=== PATIENT | female | born 1945 | race Caucasian/White ===

== ENCOUNTER → 2016-06-06 | Outpatient (CLI) | payer MEDICARE, OTHER ==
[~2016-06-06] MED LIST: ANTI-INFLAMMATORY PO; ASP81TEC PO; BACL10TA PO; CA C1TAB26 PO; CALC-902 PO; CLIN-62 PO; CYAN10007 PO; EST.625T PO; HYDR1TAB PO; IRON150C3 PO; LOSA25TA21 PO; LOSA50TA6 PO; MONT10TA24 PO; MULT-608 PO; MUPI1OIN5 NS; NF-DICLOTA PO; OMEP10CA4 PO; POTA10CA43 PO; SIMV10TA3 PO; TORS10TA2 PO; TRAM-21 PO; WRF1T PO; WRF5T PO; omeprozole PO
--- OUTSIDE RECORDS SUMMARY | 2016-06-06 10:32 | XMS REPORT | Continuity of Care Document ---
Author Author [facility] Organization [facility] Address Unknown Phone Unavailable Care Team Providers Care Aquaculture And Fisheries Professor Name Role Phone Unknown, Unknown PCP Unavailable Source Comments Some departments are not documenting in the electronic medical record. If you do not see the information that you expected, contact Release of Information in the Health Information Management department at [phone] for further assistance in locating additional records.[facility] Active Allergies and Adverse Reactions Allergen Noted Date Severity Reactions Comments Morphine 05/24/2015 Low NAUSEA ONLY Current Medications Prescription Sig. Disp. Refills Start End Date Status Date estradiol (ESTRACE) 0.01 Insert or Apply to Active % (0.1 mg/g) vaginal vaginal area daily. cream SIMVASTATIN PO Take by mouth. Active omeprazole DR(+) Take 20 mg by mouth Active (PRILOSEC) 20 mg capsule daily. aspirin EC 81 mg tablet Take 81 mg by mouth Active daily. cholecalciferol (VITAMIN Take 1,000 Units by mouth Active D-3) 1,000 units tablet daily. LOVASTATIN PO Take by mouth. Active CYANOCOBALAMIN (VITAMIN Take by mouth. Active B-12) (VITAMIN B12 PO) CALCIUM CARBONATE/VITAMIN Take by mouth. Active D3 (VITAMIN D-3 PO) ofloxacin(+) (FLOXIN) 0.3 PLACE 2 DROPS IN LEFT EAR 1 Bottle 0 20 Active % ophthalmic solution THREE TIMES DAILY 16 dexamethasone (DECADRON) PLACE 2 DROPS IN AFFECTED 1 Bottle 0 20 Active 0.1 % ophthalmic solution EAR DIRECTED THREE 16 TIMES DAILY NAPROXEN PO Take by mouth. Active ketoconazole (NIZORAL) 2 APPLY TO AFFECTED AREA 120 mL 5 /25/20 Active % topical shampoo THREE TIMES A WEEK. 16 MASSAGE INTO SCALP THEN WASH OUT AFTER LEFT IN FOR 15 MINUTES. Active Problems Problem Noted Date Dysfunction of both eustachian tubes 06/07/2015 Chronic suppurative otitis media of left ear 05/24/2015 Overview: Ear drum cleft. 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 DIRECTOR Pulse 65 06/07/2015 11:38 AM MAJOR GIFTS DIRECTOR Temperature - - Respiratory Rate - - Height 1.524 m (5') 11/29/2015 10:27 AM CDT Weight 77.565 kg (171 lb) 11/29/2015 10:27 AM CDT Body Mass Index 33.4 11/29/2015 10:27 AM CDT Oxygen Saturation - - Plan of Care Date Type Specialty Providers Description 11/14/2016 Appointment Dermatology Josué Bertrand MD [address] [facility] [address] [place] [address] [phone] (Fax) Health Maintenance Due Date Last Done Comments Hepatitis C Screening 1945 Physical (Comprehensive) 1952 Exam Pertussis Vaccine 1956 Tetanus Vaccine 1962 Breast Cancer Screening 1985 Colorectal Cancer 08/28/1995 Screening Shingles Vaccine 2005 Osteoporosis Screening 2010 Prevnar/Pneumovax (#1) 2010 Influenza Vaccine 12/29/2015 Results from Last 3 Months Not on file
--- NOTE | 2016-06-07 19:01 | Diagnostic Imaging Report ---
Bilateral screening mammogram. The current study was also evaluated with a Computer Aided Detection (CAD) system. INDICATION: Screening. No current complaints stated on the questionnaire. COMPARISON: 05/26/15 FINDINGS: The breasts are composed of scattered fibroglandular densities. There are scattered benign-appearing calcifications. No developing mass, architectural distortion or suspicious cluster of calcification seen. Allowing for technique and positional differences, no suspicious change is seen. IMPRESSION: No significant change. ACR BI-RADS Category 2: Benign findings. Result letter will be mailed to the patient. Note: At least 10% of breast cancer is not imaged by mammography. Dictated by: Dictated on workstation # [id number]
== END ==
LOC: RAD 10:28
PROVIDERS: ATTEND Nurse Practitioner Family
DX: Z12.31 Encounter for screening mammogram for malignant neoplasm of breast (principal)
CPT/HCPCS: 77067

== ENCOUNTER 2017-01-11 13:14 | Emergency (ER) | payer MEDICARE, OTHER ==
[~2017-01-11] VITALS: Ht 152.4 cm; Wt 73.5 kg
--- OUTSIDE RECORDS SUMMARY | 2017-01-11 13:29 | XMS REPORT | Clinical Summary ---
Author Author [facility] Organization [facility] Address Unknown Phone Unavailable Care Team Providers Care Storeroom Attendant Name Role Phone PCP Unavailable Source Comments Some departments are not documenting in the electronic medical record. If you do not see the information that you expected, contact Release of Information in the Health Information Management department at [phone] for further assistance in locating additional records.[facility] Allergies Active Allergy Reactions Severity Noted Date Comments Morphine NAUSEA ONLY Low 05/24/2015 Current Medications Prescription Sig. Disp. Refills Start End Date Status Date estradiol (ESTRACE) 0.01 Take by mouth daily. Active % (0.1 mg/g) vaginal Indications: 0.5 creamIndications: 0.5 SIMVASTATIN PO Take by mouth. Active omeprazole DR(+) Take 20 mg by mouth Active (PRILOSEC) 20 mg capsule daily. aspirin EC 81 mg tablet Take 81 mg by mouth Active daily. cholecalciferol (VITAMIN Take 1,000 Units by mouth Active D-3) 1,000 units tablet daily. CYANOCOBALAMIN (VITAMIN Take by mouth. Active B-12) (VITAMIN B12 PO) CALCIUM CARBONATE/VITAMIN Take by mouth. Active D3 (VITAMIN D-3 PO) ketoconazole (NIZORAL) 2 APPLY TO AFFECTED AREA 120 mL 5 02/21/20 Active % topical shampoo THREE TIMES A WEEK. 16 MASSAGE INTO SCALP THEN WASH OUT AFTER LEFT IN FOR 15 MINUTES. IRON (FERROUS SULFATE) PO Take by mouth. Active magnesium Active calcium Administer through vein. Active DOCUSATE CALCIUM (STOOL Take by mouth. Active SOFTENER PO) Active Problems Problem Noted Date Dysfunction of both eustachian tubes 06/07/2015 Chronic suppurative otitis media of left ear 05/24/2015 Overview: Ear drum cleft. Lots of valsalva requested Family History Medical History Relation Name Comments Basal Cell Carcinoma Brother Squamous Cell Carcinoma Brother Basal Cell Carcinoma Father High Cholesterol Father Hypertension Father Squamous Cell Carcinoma Father Basal Cell Carcinoma Mother High Cholesterol Mother Hypertension Mother Squamous Cell Carcinoma Mother Relation Name Status Comments Brother Father Mother Social History Tobacco Use Types Packs/Day Years Used Date Never Smoker Alcohol Use Drinks/Week oz/Week Comments No 0 Standard 0.0 drinks or equivalent Sex Assigned at Date Recorded Not on file Last Filed Vital Signs Vital Sign Reading Time Taken Blood Pressure 123/71 06/26/2016 4:03 PM RESEARCH PROGRAM MANAGER Pulse 73 06/26/2016 4:03 PM RESEARCH PROGRAM MANAGER Temperature - - Respiratory Rate - - Oxygen Saturation - - Inhaled Oxygen - - Concentration Weight 80.4 kg (177 lb 3.2 oz) 06/26/2016 4:03 PM RESEARCH PROGRAM MANAGER Height 152.4 cm (5') 06/26/2016 4:03 PM RESEARCH PROGRAM MANAGER Body Mass Index 34.61 06/26/2016 4:03 PM RESEARCH PROGRAM MANAGER Plan of Treatment Health Maintenance Due Date Last Done Comments HEPATITIS C SCREENING 1945 PHYSICAL (COMPREHENSIVE) 1952 EXAM PERTUSSIS VACCINE 1956 TETANUS VACCINE 1962 BREAST CANCER SCREENING 1985 COLORECTAL CANCER 08/28/1995 SCREENING SHINGLES VACCINE 2005 OSTEOPOROSIS SCREENING 2010 PREVNAR/PNEUMOVAX (#1) 2010 INFLUENZA VACCINE 12/28/2016 Results Not on filefrom Last 3 Months
--- NOTE | 2017-01-11 13:59 | ED Lower Extremity ---
General Chief Complaint: Lower Extremity Stated Complaint: LT LEG PAIN Nursing Triage Note: PT BROUGHT TO ROOM BY WHEELCHAIR. PT STATES THAT AT APPROX. 1145 THIS MORNING SHE WAS WALKING UP THE STAIRS AND HEARD HER LEFT KNEE POP. PT HASN'T BEEN ABLE TO WALK ON IT SINCE. PT TOOK 2 TYLENOL AT APPROX. 1215. Nursing Sepsis Screen: No Definite Risk Source: patient, family Exam Limitations: no limitations History of Present Illness Time seen by provider: 13:58 Initial Comments 71-year-old female patient presents to the emergency department with complaints of left knee pain. States that 1145 this a.m. she was walking up the stairs when she heard a pop in the left knee and had sudden onset severe pain. Patient states she is now unable to bend the left knee. Location Injury Occurred: home Onset: this morning Pain/Injury Location: left knee Modifying Factors: Improves With Immobilization, Worse With Movement Allergies and Home Medications Allergies Coded Allergies: cephalexin (Unverified Allergy, Unknown, 02/24/16) meperidine (Unverified Allergy, Unknown, 02/24/16) morphine (Unverified Allergy, Unknown, 02/24/16) pentazocine (Unverified Allergy, Unknown, 02/24/16) Home Medications Ca Cmb No.1/Vit D3/B-6/Fa/B12 1 Each Tablet, 1,000 MG PO DAILY, (Reported) Calcium Carbonate/Vitamin D3 1 Each Tablet, 2 EACH PO HS, (Reported) Cyanocobalamin 1,000 Mcg Tablet.sa, 1,000 MCG PO HS, (Reported) Hydrocodone/Acetaminophen 1 Each Tablet, 0.5-1 EACH PO Q4H PRN for PAIN, #20 Ref 0 Prescribed by: MARIANNA JUAN on 01/11/17 1616 Iron Polysaccharide Complex 150 Mg Capsule, 150 MG PO BID, (Reported) Losartan Potassium 25 Mg Tablet, 25 MG PO HS, (Reported) Montelukast Sodium 10 Mg Tablet, 10 MG PO HS, (Reported) Multivitamins 1 Tab Tablet, 1 TAB PO DAILY, (Reported) Omeprazole 10 Mg Capsule.dr, 10 MG PO HS, (Reported) Simvastatin 10 Mg Tablet, 10 MG PO HS, (Reported) Constitutional: no symptoms reported Respiratory: no symptoms reported Cardiovascular: no symptoms reported Musculoskeletal: see HPI, No back pain, joint pain, joint swelling, No neck pain Skin: No change in color, No lumps Psychiatric/Neurological: Denies Numbness, Denies Paresthesia, Denies Tingling , Denies Weakness All Other Systems Reviewed Negative Unless Noted: Yes (Negative excepted noted.) Past Bkxxeip-Keagjw-Ewilqk Hx Patient Social History Alcohol Use: Denies Use Recreational Drug Use: No Smoking Status: Never a Smoker 2nd Hand Smoke Exposure: No Recent Foreign Travel: No Contact w/Someone Who Travel: No Recent Infectious Disease Expo: No Recent Hopitalizations: Yes (RIGHT HIP SURGERY FEBRUARY 2016) Physical Abuse: No Sexual Abuse: No Seasonal Allergies Seasonal Allergies: No Surgeries History of Surgeries: Yes (R Total hip, Right total knee, right foot) Surgeries: Appendectomy, Gallbladder, Joint Replacement Respiratory History of Respiratory Disorde: No (frequent cough) Cardiovascular History of Cardiac Disorders: Yes Cardiac Disorders: Hypertension Neurological History of Neurological Disord: No Reproductive System Hx Reproductive Disorders: No Sexually Transmitted Disease: No HIV/AIDS: No 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 Genitourinary History of Genitourinary Disor: No Gastrointestinal History of Gastrointestinal Di: Yes Gastrointestinal Disorders: Gastroesophageal Reflux, C-Diff, Hiatal Hernia Musculoskeletal History of Musculoskeletal Dis: Yes (spinal stenosis) Musculoskeletal Disorders: Osteoporosis, Scoliosis Endocrine History of Endocrine Disorders: No HEENT History of HEENT Disorders: Yes HEENT Disorders: Cataract Cancer History of Cancer: No Psychosocial History of Psychiatric Problem: No Suicide Risk Score: 0 Integumentary History of Skin or Integumenta: No Blood Transfusions History of Blood Disorders: Yes (anemia) Reviewed Nursing Assessment Reviewed/Agree w Nursing PMH: Yes Family Medical History Significant Family History: No Pertinent Family Hx Physical Exam Vital Signs Vital Sign - Last 12Hours 01/11/17 13:29 Temp 97.8 Pulse 75 Resp 20 B/P (MAP) 106/77 Pulse Ox 96 O2 Delivery Room Air Capillary Refill : Less Than 3 Seconds General Appearance: WD/WN, no apparent distress Cardiovascular: normal peripheral pulses, regular rate, rhythm, no edema, no murmur Respiratory: lungs clear, normal breath sounds, no respiratory distress, no accessory muscle use Hips: bilateral hip non-tender, bilateral hip normal inspection, bilateral hip normal range of motion, bilateral hip no evidence of injury Legs: right leg non-tender, right leg normal inspection, bilateral leg normal range of motion, bilateral leg no evidence of injury, left leg swelling (left lower leg from the left knee to the left mid lateral calf with soft tissue tenderness noted. Left posterior calf nontender.) Knees: right knee non-tender, right knee normal inspection, right knee normal range of motion, bilateral knee no evidence of injury, left knee pain, left knee soft tissue tenderness (left posterior knee), left knee swelling (left posterior knee), left knee other (palpable cystic structure of the left posterior knee consistent with a Hatfield's cyst) Ankles: bilateral ankle non-tender, bilateral ankle normal inspection, bilateral ankle normal range of motion, bilateral ankle no evidence of injury Feet: bilateral foot non-tender, bilateral foot normal inspection, bilateral foot normal range of motion, bilateral foot no evidence of injury Neurologic/Tendon: normal sensation, normal motor functions, normal tendon functions, responds to pain, no evidence tendon injury Neurologic/Psychiatric: no motor/sensory deficits, alert, normal mood/affect, oriented x 3 Skin: normal color, warm/dry, No cyanosis, No cool, No ecchymosis, No mottled Progress/Results/Core Measures Results/Orders My Orders Orders - MARIANNA JUAN Ketorolac Injection (Toradol Injection) (01/11/17 14:37) Knee, Left, 3 Views (01/11/17 14:37) Us Left Lower Ext [id number] (01/11/17 14:37) Knee Immobilizer (01/11/17 16:14) Hydrocodone/Apap 5/325 Tablet (Lortab 5 (01/11/17 16:14) Vital Signs/I&O Vital Sign - Last 12Hours 01/11/17 01/11/17 13:29 16:28 Temp 97.8 97.8 Pulse 75 75 Resp 20 20 B/P (MAP) 106/77 Pulse Ox 96 96 O2 Delivery Room Air Room Air Blood Pressure Mean: 87 Diagnostic Imaging Diagonstic Imaging: Xray Plain Films/CT/US/NM/MRI: knee Comments FINDINGS: Three views. There is a moderate degenerative disease with sclerosis along the articulating surface of the lateral femoral condyle and tibial plateau with moderate bony osteophytes present. Medial compartment is well preserved. Patellofemoral joint shows mild hypertrophic changes as well. No fractures are demonstrated. No chondrocalcinosis or loose bodies. IMPRESSION: 1. Moderate degenerative changes noted in the lateral compartment with mild degenerative changes along the patellofemoral joint. Dictated by: Dictated on workstation # [id number] Reviewed: Reviewed by Me (radiology report reviewed by me) Diagonstic Imaging: Ultrasound Plain Films/CT/US/NM/MRI: knee (left knee) Comments INDICATION: Pain posterior to left knee Ultrasound of the popliteal fossa was performed. There is a complex Hatfield's cyst with internal debris and irregularity , measures about 4.7 x 1.3 x 3.9 cm. Incidentally, the popliteal vein is somewhat aneurysmal measuring 1.4 cm. IMPRESSION: Irregular Hatfield's cyst with debris in the poplitea fossa, as mentioned above. 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 Dictated by: Dictated on workstation # [id number] Reviewed: Reviewed by Me (radiology report reviewed by me) Departure Communication (Admissions) Progress Notes Patient seen and evaluated. Patient reports that she does not want narcotics given for the pain while in the emergency department. Patient is agreeable to using Toradol IM. Diagnostic findings were discussed with the patient. Patient reports feeling better with medications given. Patient is now agreeable to using one half tablet of hydrocodone in the emergency department due to continuing to have pain which she rates at a 6/10. Patient was placed in a knee immobilizer with improvement in symptoms. Plan for discharge to home with follow-up as an outpatient with orthopedics. Patient states she already has an appointment scheduled with Dr. Tan has an outpatient for discussion of her hip. I've advised the patient to discuss the left knee Hatfield cyst with him at that appointment. Impression Impression: Primary Impression: Hatfield's cyst, ruptured Disposition: 01 HOME, SELF-CARE Condition: Improved Departure-Patient Inst. Decision time for Depature: 16:15 Referrals: BART TAN MD, WILLIAM J DO (PCP/Family) Primary Care Physician Patient Instructions: Hatfield's Cyst (DC) Add. Discharge Instructions: All discharge instructions reviewed with patient and/or family. Voiced understanding. Medications as directed. Motrin 600 mg by mouth every 6 hours as needed for pain. Elevate the left lower extremity on pillows. Ice pack for 20 minute intervals as needed for pain and swelling. Knee immobilizer as instructed. Crutches or walker as instructed. Follow-up with Dr. Banwart as an outpatient for recheck as previously scheduled. Make sure to discuss the Hatfield's cyst with him. Return to the emergency department for worsened symptoms or any other concerns. Scripts Hydrocodone/Acetaminophen (Hydrocodon -Acetaminophen 5-325) 1 Each Tablet 0.5-1 EACH PO Q4H Y for PAIN, #20 TAB 0 Refills Prov: MARIANNA JUAN 01/11/17 MARIANNA JUAN Jan 11, 2017 13:58
[2017-01-11] MEDS ORDERED: KETOROLAC 60 MG/2 ML VIAL IM STA (14:37)
--- NOTE | 2017-01-11 15:18 | Diagnostic Imaging Report ---
INDICATION: Sudden onset of severe pain to left knee. FINDINGS: Three views. There is a moderate degenerative disease with sclerosis along the articulating surface of the lateral femoral condyle and tibial plateau with moderate bony osteophytes present. Medial compartment is well preserved. Patellofemoral joint shows mild hypertrophic changes as well. No fractures are demonstrated. No chondrocalcinosis or loose bodies. IMPRESSION: 1. Moderate degenerative changes noted in the lateral compartment with mild degenerative changes along the patellofemoral joint. Dictated by: Dictated on workstation # [id number]
--- NOTE | 2017-01-11 15:47 | Diagnostic Imaging Report ---
INDICATION: Pain posterior to left knee Ultrasound of the popliteal fossa was performed. There is a complex Hatfield's cyst with internal debris and irregularity, measures about 4.7 x 1.3 x 3.9 cm. Incidentally, the popliteal vein is somewhat aneurysmal measuring 1.4 cm. IMPRESSION: Irregular Hatfield's cyst with debris in the poplitea fossa, as mentioned above. 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 Dictated by: Dictated on workstation # [id number]
[2017-01-11] MEDS ORDERED: HYDROcodone/APAP 5 MG/325 MG (LORTAB) TAB PO STA (16:14)
[2017-01-11] MEDS ORDERED: HYDR-3812 PO (16:16)
[2017-01-11 16:28] VITALS: BP 106/77
[2017-01-13] MEDS ORDERED: TRIA1CAP4 PO ×2 (16:23)
[2017-01-13] MEDS ORDERED: OMEP20CA12 PO ×2 (16:23)
[2017-01-13] MEDS ORDERED: ESTR0.5T PO ×2 (16:23)
[2017-01-13] MEDS ORDERED: CYAN500T2 PO ×2 (16:38)
[2017-01-13] MEDS ORDERED: HYDR-757 PO ×2 (16:38)
[2017-01-13] MEDS ORDERED: CHOL3000 PO ×2 (16:38)
[2017-01-13] MEDS ORDERED: [UNRECOGNIZED DRUG - OTHER] PO ×2 (16:43)
[2017-01-13] MEDS ORDERED: MAGNESIUM PO ×2 (16:54)
[2017-01-14] MEDS ORDERED: APIX5TAB PO ×2 (08:53)
== END 2017-01-11 16:28 | disposition home or self-care (01) ==
LOC: EDUNIT# 13:14 → ER 13:24
DX: M71.22 Synovial cyst of popliteal space [Baker], left knee (principal); K21.9 Gastro-esophageal reflux disease without esophagitis; I10 Essential (primary) hypertension; M41.9 Scoliosis, unspecified; D64.9 Anemia, unspecified; M81.0 Age-related osteoporosis without current pathological fracture; Z87.19 Personal history of other diseases of the digestive system; Z90.710 Acquired absence of both cervix and uterus; Z90.49 Acquired absence of other specified parts of digestive tract; Z96.651 Presence of right artificial knee joint; Z96.641 Presence of right artificial hip joint; X50.0XXA Overexertion from strenuous movement or load, initial encounter
CPT/HCPCS: 73562; 76881; 96372; 99284

== ENCOUNTER 2017-01-13 11:45 | Observation (INO) | payer MEDICARE, OTHER ==
[~2017-01-13] VITALS: Ht 149.9 cm; Wt 82.6 kg
[~2017-01-13 11:45] MED LIST changes: +HYDR-3812 PO
--- OUTSIDE RECORDS SUMMARY | 2017-01-13 11:50 | XMS REPORT | Clinical Summary ---
Author Author [facility] Organization [facility] Address Unknown Phone Unavailable Care Team Providers Care Support Analyst Name Role Phone PCP Unavailable Source Comments Some departments are not documenting in the electronic medical record. If you do not see the information that you expected, contact Release of Information in the Health Information Management department at [phone] for further assistance in locating additional records.[facility] Allergies Active Allergy Reactions Severity Noted Date [...] Taken Blood Pressure 123/71 06/26/2016 4:03 PM DIRECTOR OF APPLICATION DEVELOPMENT Pulse 73 06/26/2016 4:03 PM DIRECTOR OF APPLICATION DEVELOPMENT Temperature - - Respiratory Rate - - Oxygen Saturation - - Inhaled Oxygen - - Concentration Weight 80.4 kg (177 lb 3.2 oz) 06/26/2016 4:03 PM DIRECTOR OF APPLICATION DEVELOPMENT Height 152.4 cm (5') 06/26/2016 4:03 PM DIRECTOR OF APPLICATION DEVELOPMENT Body Mass Index 34.61 06/26/2016 4:03 PM DIRECTOR OF APPLICATION DEVELOPMENT Plan of Treatment Health Maintenance Due Date Last Done Comments HEPATITIS C SCREENING 1945 PHYSICAL (COMPREHENSIVE) 1952 EXAM PERTUSSIS VACCINE 1956 TETANUS VACCINE 1962 BREAST CANCER SCREENING 1985 COLORECTAL CANCER 08/28/1995 SCREENING SHINGLES VACCINE 2005 OSTEOPOROSIS SCREENING 2010 PREVNAR/PNEUMOVAX (#1) 2010 INFLUENZA VACCINE 01/27/2017 Results Not on filefrom Last 3 Months
[2017-01-13] MEDS ORDERED: NS IV 500 ML 500 ML IV ONE (12:00)
[2017-01-13 12:09] LABS: BASOPHILS % (AUTO) 1 % (0-10); EOSINOPHILS # (AUTO) 0.1 10^3/uL (0.0-0.3); EOSINOPHILS % (AUTO) 1 % (0-10); LYMPHOCYTES # (AUTO) 1.3 X 10^3 (1.0-4.0); LYMPHOCYTES % (AUTO) 23 % (12-44); MEAN CORPUSCULAR HEMOGLOBIN 24 PG (25-34); MEAN CORPUSCULAR HGB CONC 31 G/DL (32-36); MEAN CORPUSCULAR VOLUME 78 FL (80-99); MEAN PLATELET VOLUME 8.9 FL (7.4-10.4); MONOCYTES # (AUTO) 0.5 X 10^3 (0.0-1.0); MONOCYTES % (AUTO) 8 % (0-12); NEUTROPHILS % (AUTO) 68 % (42-75); PLATELET COUNT 342 10^3/uL (130-400); RED BLOOD COUNT 5.19 10^6/uL (4.35-5.85); RED CELL DISTRIBUTION WIDTH 18.1 % (10.0-14.5); WHITE BLOOD COUNT 5.9 10^3/uL (4.3-11.0)
--- NOTE | 2017-01-13 12:10 | ED Syncope ---
General Stated Complaint: SYNCOPE Source of Information: Patient Exam Limitations: No Limitations History of Present Illness Time Seen by Provider: 11:55 Initial Comments Here with report of syncope while at [facility]. Apparently she was sitting down and then got hot and then ultimately passed out. This was not with prolonged activity. She denies chest pain or other precipitating factors. 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 She did have a knee immobilizer but states that she has not been wearing it much. She is able to walk although she does not walk very much due to the pain. Currently denies nausea or vomiting. She was transported via EMS and they did establish IV. Blood sugar 115 per EMS. Currently denies chest pain or any complaints. Apparently she was laid down after she passed out and then slowly returned to consciousness. Timing/Prior Episodes: No Prior History Symptoms Prior to Episode: Other (feeling hot all over) Precipitating Factors: Sitting Loss of Consciousness: Brief (Seconds) Current Symptoms: Back to Normal, No Chest Pain, No Diaphoresis Allergies and Home Medications Allergies Coded Allergies: cephalexin (Unverified Allergy, Unknown, 02/24/16) meperidine (Unverified Allergy, Unknown, 02/24/16) morphine (Unverified Allergy, Unknown, 02/24/16) pentazocine (Unverified Allergy, Unknown, 02/24/16) Home Medications Ca Cmb No.1/Vit D3/B-6/Fa/B12 1 Each Tablet, 1,000 MG PO DAILY, (Reported) Calcium Carbonate/Vitamin D3 1 Each Tablet, 2 EACH PO HS, (Reported) Cyanocobalamin 1,000 Mcg Tablet.sa, 1,000 MCG PO HS, (Reported) Hydrocodone/Acetaminophen 1 Each Tablet, 0.5-1 EACH PO Q4H PRN for PAIN, #20 Ref 0 Prescribed by: MARIANNA JUAN on 01/11/17 1616 Iron Polysaccharide Complex 150 Mg Capsule, 150 MG PO BID, (Reported) Losartan Potassium 25 Mg Tablet, 25 MG PO HS, (Reported) Montelukast Sodium 10 Mg Tablet, 10 MG PO HS, (Reported) Multivitamins 1 Tab Tablet, 1 TAB PO DAILY, (Reported) Omeprazole 10 Mg Capsule.dr, 10 MG PO HS, (Reported) Simvastatin 10 Mg Tablet, 10 MG PO HS, (Reported) Constitutional: see HPI, No chills, No fever EENTM: no symptoms reported Respiratory: no symptoms reported Cardiovascular: see HPI, No edema, syncope Gastrointestinal: No nausea, No vomiting Genitourinary: no symptoms reported Musculoskeletal: joint pain, joint swelling Skin: no symptoms reported Psychiatric/Neurological: See HPI All Other Systems Reviewed Negative Unless Noted: Yes Past Hldszio-Conmfw-Zskzis Hx Patient Social History Alcohol Use: Denies Use Recreational Drug Use: No Smoking Status: Never a Smoker 2nd Hand Smoke Exposure: No Recent Hopitalizations: Yes (RIGHT HIP SURGERY FEBRUARY 2016) Seasonal Allergies Seasonal Allergies: No Surgeries History of Surgeries: Yes (R Total hip, Right total knee, right foot) Surgeries: Appendectomy, Gallbladder, Joint Replacement Respiratory History of Respiratory Disorde: No (frequent cough) Cardiovascular History of Cardiac Disorders: Yes Cardiac Disorders: Hypertension Neurological History of Neurological Disord: No Reproductive System Hx Reproductive Disorders: No Sexually Transmitted Disease: No HIV/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 Genitourinary History of Genitourinary Disor: No Gastrointestinal History of Gastrointestinal Di: Yes Gastrointestinal Disorders: Gastroesophageal Reflux, C-Diff, Hiatal Hernia Musculoskeletal History of Musculoskeletal Dis: Yes (spinal stenosis) Musculoskeletal Disorders: Osteoporosis, Scoliosis Endocrine History of Endocrine Disorders: No HEENT History of HEENT Disorders: Yes HEENT Disorders: Cataract Cancer History of Cancer: No Psychosocial History of Psychiatric Problem: No Integumentary History of Skin or Integumenta: No Blood Transfusions History of Blood Disorders: Yes (anemia) Reviewed Nursing Assessment Reviewed/Agree w Nursing PMH: Yes Family Medical History Significant Family History: No Pertinent Family Hx Physical Exam Vital Signs Vital Sign - Last 12Hours 01/13/17 11:55 Temp 96.4 Pulse 69 Resp 20 B/P (MAP) 127/77 Pulse Ox 96 O2 Delivery Room Air Capillary Refill : General Appearance: No Apparent Distress, WD/WN HEENT: PERRL/EOMI, Pharynx Normal Neck: Non Tender, Supple Cardiovascular: Regular Rate, Rhythm, No Murmur Respiratory: Lungs Clear, Normal Breath Sounds Gastrointestinal: Non Tender, Soft Back: Normal Inspection, No CVA Tenderness, No Vertebral Tenderness Extremities: Swelling, Other (tenderness posterior left leg where ruptured Hatfield's cyst is. No significant swelling to the lower extremities noted otherwise.) Neurologic/Psychiatric: Alert, Oriented x3 Cranial Nerves: Normal Hearing, Normal Speech, PERRL Motor/Sensory: No Motor Deficit, No Sensory Deficit Skin: Normal Color, Warm/Dry Progress/Results/Core Measures Results/Orders Lab Results Laboratory Tests Test 01/13/17 12:00 Range/Units White Blood Count 5.9 4.3-11.0 10^3/uL Red Blood Count 5.19 4.35-5.85 10^6/uL Hemoglobin 12.4 11.5-16.0 G/DL Hematocrit 40 35-52 % Mean Corpuscular Volume 78 L 80-99 FL Mean Corpuscular Hemoglobin 24 L 25-34 PG Mean Corpuscular Hemoglobin Concent 31 L 32-36 G/DL Red Cell Distribution Width 18.1 H 10.0-14.5 % Platelet Count 342 130-400 10^3/uL Mean Platelet Volume 8.9 7.4-10.4 FL Neutrophils (%) (Auto) 68 42-75 % Lymphocytes (%) (Auto) 23 12-44 % Monocytes (%) (Auto) 8 0-12 % Eosinophils (%) (Auto) 1 0-10 % Basophils (%) (Auto) 1 0-10 % Neutrophils # (Auto) 4.0 1.8-7.8 X 10^3 Lymphocytes # (Auto) 1.3 1.0-4.0 X 10^3 Monocytes # (Auto) 0.5 0.0-1.0 X 10^3 Eosinophils # (Auto) 0.1 0.0-0.3 10^3/uL Basophils # (Auto) 0.0 0.0-0.1 10^3/uL Sodium Level 137 135-145 MMOL/L Potassium Level 3.8 3.6-5.0 MMOL/L Chloride Level 103 98-107 MMOL/L Carbon Dioxide Level 21 21-32 MMOL/L Anion Gap 13 5-14 MMOL/L Blood Urea Nitrogen 21 H 7-18 MG/DL Creatinine 0.98 0.60-1.30 MG/DL Estimat Glomerular Filtration Rate 56 BUN/Creatinine Ratio 21 Glucose Level 140 H 70-105 MG/DL Calcium Level 9.5 8.5-10.1 MG/DL Total Bilirubin 0.3 0.1-1.0 MG/DL Aspartate Amino Transf (AST/SGOT) 14 5-34 U/L Alanine Aminotransferase (ALT/SGPT) 10 0-55 U/L Alkaline Phosphatase 58 40-136 U/L Troponin I < 0.30 <0.30 NG/ML Total Protein 6.5 6.4-8.2 GM/DL Albumin 3.9 3.2-4.5 GM/DL My Orders Orders - MARILEE YEPEZ MD Cbc With Automated Diff (01/13/17 12:00) Comprehensive Metabolic Panel (01/13/17 12:00) Troponin I (01/13/17 12:00) Ekg Tracing (01/13/17 12:00) Monitor-Rhythm Ecg Trace Only (01/13/17 12:00) Saline Lock/Iv-Start (01/13/17 12:00) Ns Iv 500 Ml (Sodium Chloride 0.9%) (01/13/17 12:00) Ct Angio Chest W (01/13/17 12:32) Iohexol Injection (Omnipaque 350 Mg/Ml 1 (01/13/17 12:45) Ns (Ivpb) (Sodium Chloride 0.9% Ivpb Bag (01/13/17 12:45) Us Venous Lower Ext Lt (01/13/17 13:25) Apixaban Tablet (Eliquis Tablet) (01/13/17 13:45) General/Regular (01/13/17 Lunch) Medications Given in ED Current Medications Medications Dose Ordered Sig/Cale Route Start Time Stop Time Status Last Admin Dose Admin Apixaban 10 mg ONCE ONCE PO 01/13/17 13:45 01/13/17 13:46 DC 01/13/17 13:57 10 MG Iohexol 150 ml ONCE ONCE IV 01/13/17 12:45 01/13/17 13:06 DC 01/13/17 12:51 125 ML Sodium Chloride 100 ml ONCE ONCE IV 01/13/17 12:45 01/13/17 13:06 DC 01/13/17 12:51 100 ML Sodium Chloride 500 ml @ 0 mls/hr Q0M ONCE IV 01/13/17 12:00 01/13/17 12:03 DC 01/13/17 12:19 0 MLS/HR Vital Signs/I&O Vital Sign - Last 12Hours 01/13/17 11:55 Temp 96.4 Pulse 69 Resp 20 B/P (MAP) 127/77 Pulse Ox 96 O2 Delivery Room Air Intake and Output 01/14/17 00:00 Intake Total 500 ml Balance 500 ml Progress Note : Progress Note Seen and evaluated. IV by EMS. Second IV established here as we're unable to get blood and there is a need for CT angiogram of the chest. Labs and EKG ordered. CT angiogram of the chest will be ordered due to patient's history of ruptured Hatfield cyst on the left leg, prior history of DVT, syncopal episode and patient has O2 saturations in the low 90s which is a change from the other day. Normal saline 500 mL bolus ordered. Monitor patient. CT angiogram completed and doesn't show pulmonary embolism. I did discuss the case with Dr. Guerra at 1345. We will initiate Eliquis at 10 mg by mouth twice a day. He is recommending admission due to syncope. I did discuss this with the patient and she agrees. We will get left lower extremity venous ultrasound to rule out DVT. 1430: Ultrasound complete. Admit to ICU stepdown. Patient and family agree with plan. ECG Initial ECG Impression Date: Jan 13, 2017 Initial ECG Impression Time: 12:18 Initial ECG Rate: 66 Initial ECG Rhythm: Normal Sinus Comment Sinus rhythm with normal axis and no evidence of ST elevation [place]. No previous available for comparison. Interpreted by me. Diagnostic Imaging Diagonstic Imaging: CT Plain Films/CT/US/NM/MRI: chest Comments NAME: TINY PÉREZ [facility] REC#: [id number] PT STATUS: REG ER : 1945 PHYSICIAN: MARILEE YEPEZ MD ADMIT DATE: 01/13/17/ER Signed Date of Exam: 01/13/17 CT ANGIO CHEST W PROCEDURE: CT angiography of the chest with contrast. TECHNIQUE: Multiple contiguous axial images were obtained through the chest after uneventful bolus administration of intravenous contrast. Reconstructed CTA MIP acquisitions were also performed. INDICATION: Syncope and diaphoresis. Chest pain. COMPARISON: None available. FINDINGS: Vasculature: There is acute, nonocclusive thrombus within the posterior basilar segment of the right lower lobe. No pulmonary hypertension or right ventricular strain by CT. Thoracic aorta is normal in caliber. No aortic dissection or pseudoaneurysm. Heart and mediastinum: Visualized thyroid is normal. No supraclavicular, axillary, or intra-thoracic lymphadenopathy. The heart is normal in size without pericardial effusion. Large hiatal hernia with approximately 2/3 of the stomach in the chest. Pleura: No pleural effusion or pneumothorax. Lungs and airway: No endoluminal lesion in the trachea or central bronchi. No pulmonary mass, nodule or consolidation. Subsegmental atelectasis is present adjacent to the posterior costophrenic angles. Upper abdomen: Allowing for the phase of contrast, no acute abnormality in the upper abdomen is seen. Small exophytic cyst in the upper pole of the left kidney. Musculoskeletal: No concerning osseous lesion. IMPRESSION: 1. Small burden of acute pulmonary embolus, with a single nonocclusive thrombus present in the right lower lobe posterior basilar segment. 2. No right ventricular strain or pulmonary hypertension. 3. Large hiatus hernia. Dictated by: Dictated on workstation # [id number] Dict: 01/13/17 1307 Trans: 01/13/17 1359 Interpreted by: RAUL MELLO MD Electronically signed by: RAUL MELLO MD 01/13/17 1359 Diagonstic Imaging: Ultrasound Plain Films/CT/US/NM/MRI: leg Comments Ultrasound left lower extremity preliminary read shows no DVT. Departure Communication (Admissions) Time/Spoke to Admitting Phy: 13:45 Impression Impression: Primary Impression: Pulmonary embolism Qualified Codes: I26.99 - Other pulmonary embolism without acute cor pulmonale Disposition: ADMITTED INPATIENT Condition: Stable Admissions Decision to Admit Reason: Admit from ER (General) Decision to Admit/Date: Jan 13, 2017 Time/Decision to Admit Time: 13:45 Departure-Patient Inst. Referrals: FELIZ GUY DO (PCP/Family) Primary Care Physician MARILEE YEPEZ MD Jan 13, 2017 12:10
[2017-01-13 12:29] LABS: ALANINE AMINOTRANSFERASE 10 U/L (0-55); ALBUMIN 3.9 GM/DL (3.2-4.5); ANION GAP 13 MMOL/L (5-14); ASPARTATE AMINO TRANSFERASE 14 U/L (5-34); BILIRUBIN,TOTAL 0.3 MG/DL (0.1-1.0); BLOOD UREA NITROGEN 21 MG/DL (7-18); BUN/CREATININE RATIO 21; CALCIUM 9.5 MG/DL (8.5-10.1); CARBON DIOXIDE 21 MMOL/L (21-32); CHLORIDE 103 MMOL/L (98-107); CREATININE SERUM 0.98 MG/DL (0.60-1.30); GFR ESTIMATED 56; GLUCOSE 140 MG/DL (70-105); POTASSIUM 3.8 MMOL/L (3.6-5.0); SODIUM 137 MMOL/L (135-145); TOTAL PROTEIN 6.5 GM/DL (6.4-8.2)
[2017-01-13 12:35] LABS: TROPONIN I < 0.30 NG/ML (<0.30)
[2017-01-13] MEDS ORDERED: NS 100 ML (IVPB) BAG IV ONE (12:45)
[2017-01-13] MEDS ORDERED: IOHEXOL 350 MG/ML 150 ML (OMNIPAQUE 350) VIAL IV ONE (12:45)
--- NOTE | 2017-01-13 13:18 | Diagnostic Imaging Report ---
PROCEDURE: CT angiography of the chest with contrast. TECHNIQUE: Multiple contiguous axial images were obtained through the chest after uneventful bolus administration of intravenous contrast. Reconstructed CTA MIP acquisitions were also performed. INDICATION: Syncope and diaphoresis. Chest pain. COMPARISON: None available. FINDINGS: Vasculature: There is acute, nonocclusive thrombus within the posterior basilar segment of the right lower lobe. No pulmonary hypertension or right ventricular strain by CT. Thoracic aorta is normal in caliber. No aortic dissection or pseudoaneurysm. Heart and mediastinum: Visualized thyroid is normal. No supraclavicular, axillary, or intra-thoracic lymphadenopathy. The heart is normal in size without pericardial effusion. Large hiatal hernia with approximately 2/3 of the stomach in the chest. Pleura: No pleural effusion or pneumothorax. Lungs and airway: No endoluminal lesion in the trachea or central bronchi. No pulmonary mass, nodule or consolidation. Subsegmental atelectasis is present adjacent to the posterior costophrenic angles. Upper abdomen: Allowing for the phase of contrast, no acute abnormality in the upper abdomen is seen. Small exophytic cyst in the upper pole of the left kidney. Musculoskeletal: No concerning osseous lesion. IMPRESSION: 1. Small burden of acute pulmonary embolus, with a single nonocclusive thrombus present in the right lower lobe posterior basilar segment. 2. No right ventricular strain or pulmonary hypertension. 3. Large hiatus hernia. Dictated by: Dictated on workstation # [id number]
[2017-01-13] MEDS ORDERED: APIXABAN 5 MG (ELIQUIS) TABLET PO ONE (13:45)
--- NOTE | 2017-01-13 14:32 | Diagnostic Imaging Report ---
PROCEDURE: US left lower extremity venous. TECHNIQUE: Multiple real-time grayscale images were obtained over the left lower extremity in various projections. Additional duplex Doppler and color Doppler images were also obtained. INDICATION: Left leg pain. Findings: The left common femoral, femoral and popliteal veins are patent without evidence of DVT. Visualized proximal aspects of the greater saphenous, deep femoral, posterior tibial and peroneal veins are also patent. All of the evaluated deep venous structures demonstrate normal compressibility and waveform augmentation where applicable. Impression: No left lower extremity deep venous thrombosis (DVT). Dictated by: Dictated on workstation # [id number]
--- OUTSIDE RECORDS SUMMARY | 2017-01-13 15:25 | XMS REPORT | Clinical Summary ---
Author Author [facility] Organization [facility] Address Unknown Phone Unavailable Care Team Providers Care Director Educational Radio Name Role Phone PCP Unavailable Source Comments Some departments are not documenting in the electronic medical record. 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
[2017-01-13 16:00] VITALS: BP 134/78
[2017-01-13] MEDS ORDERED: ESTR0.5T PO (16:23)
[2017-01-13] MEDS ORDERED: OMEP20CA12 PO (16:23)
[2017-01-13] MEDS ORDERED: TRIA1CAP4 PO (16:23)
[2017-01-13] MEDS ORDERED: CHOL3000 PO (16:38)
[2017-01-13] MEDS ORDERED: CYAN500T2 PO (16:38)
[2017-01-13] MEDS ORDERED: HYDR-757 PO (16:38)
[2017-01-13] MEDS ORDERED: [UNRECOGNIZED DRUG - OTHER] PO (16:43)
[2017-01-13] MEDS ORDERED: MAGNESIUM PO (16:54)
[2017-01-13] MEDS: NS IV 1000 ML 1,000 ML IV SCH (17:08)
[2017-01-13 19:55] VITALS: BP 141/77
[2017-01-13] MEDS ORDERED: ACETAMINOPHEN 500 MG TAB (TYLENOL) PO PRN (20:00)
[2017-01-13] MEDS ORDERED: ACETAMINOPHEN 500 MG TAB (TYLENOL) PO ONE (20:00)
[2017-01-13] MEDS: APIXABAN 5 MG (ELIQUIS) TABLET PO SCH (20:09)
[2017-01-13] MEDS ORDERED: APIXABAN 5 MG (ELIQUIS) TABLET PO SCH (21:00)
[2017-01-13] MEDS ORDERED: PANTOPRAZOLE 40 MG (PROTONIX) TAB PO ONE (22:15)
[2017-01-13] MEDS ORDERED: CATHETER FLUSH 10 ML SYR IV PRN (22:30)
[2017-01-13 23:50] VITALS: BP 123/66
[2017-01-14 04:00] VITALS: BP 131/71
[2017-01-14] MEDS: NS IV 1000 ML 1,000 ML IV SCH (05:54)
[2017-01-14] MEDS ORDERED: CATHETER FLUSH 10 ML SYR IV SCH (06:00)
[2017-01-14] MEDS ORDERED: PANTOPRAZOLE 40 MG (PROTONIX) TAB PO SCH (07:00)
--- NOTE | 2017-01-14 08:14 | Short Stay Summary-Hospitalist ---
HPI History of Present Illness: HPI/Chief Complaint Pt is a 71yoCF with a PMH of hiatal hernia, DVT in 2010, and HTn who presented to the ER with CC of syncope at [facility]. She reports that her symptoms have started vaibhav /Saturday with a ruptured Hatfield's cyst and immobility due to pain from that. She also noticed some SOB but felt it was chronic due to her hiatal hernia. She was at [facility] yesterday sitting and singing when she passed out prompting her trip to the ER where she was found to have a RLL pulmonary embolism and admitted for further management. Source: patient Exam Limitations: no limitations Date Seen 01/14/17 Time Seen by Provider: 07:40 Attending Physician Pb Guerra MD PCP Sylvester Chirinos DO Referring Physician Date of Admission Jan 13, 2017 at 14:19 Home Medications & Allergies Home Medications Reviewed patient Home Medication Reconciliation Form Allergies Allergies Coded Allergies cephalexin (Unverified Allergy, Unknown, 02/24/16) meperidine (Unverified Allergy, Unknown, 02/24/16) morphine (Unverified Allergy, Unknown, 02/24/16) pentazocine (Unverified Allergy, Unknown, 02/24/16) Past Qdzgcjl-Vkdylr-Mztzrd Hx Patient Social History Employed/Student: retired Alcohol Use: Denies Use Recreational Drug Use: No Smoking Status: Never a Smoker 2nd Hand Smoke Exposure: No Physical Abuse Screen: No Sexual Abuse: No Recent Foreign Travel: No Contact w/other who traveled: No Recent Hopitalizations: No Recent Infectious Disease Expo: No Immunizations Up To Date Date of Pneumonia Vaccine: May 01, 2016 Seasonal Allergies Seasonal Allergies: No Surgeries Yes (R Total hip, Right total knee, right foot) Appendectomy, Gallbladder, Joint Replacement (hip and knee) Respiratory No (frequent cough) Cardiovascular Yes Hypertension Neurological No Reproductive System Hx Reproductive Disorders: No Sexually Transmitted Disease: No HIV/AIDS: 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 Genitourinary No Gastrointestinal Yes C-Diff, Hiatal Hernia Musculoskeletal Yes (spinal stenosis) Osteoporosis, Scoliosis Endocrine History of Endocrine Disorders: No HEENT History of HEENT Disorders: Yes HEENT Disorders: Cataract Cancer No Psychosocial History of Psychiatric Problem: No Integumentary History of Skin or Integumenta: No Blood Transfusions History of Blood Disorders: Yes (anemia) Reviewed Nursing Assessment Reviewed/Agree w Nursing PMH: Yes Family Medical History Significant Family History: No Pertinent Family Hx Family Hx: Cardiovascular disease 19 FATHER 19 MOTHER G8 SISTER FH: CHF (congestive heart failure) 19 FATHER 19 MOTHER FH: COPD (chronic obstructive pulmonary disease) 19 MOTHER FH: cancer G8 BROTHER G8 SISTER FH: liver disease G8 SISTER Kidney disease G8 SISTER Review of Systems Constitutional: No chills, No fever, No weakness EENTM: no symptoms reported, No throat pain Respiratory: No cough, short of breath Cardiovascular: No chest pain, No palpitations Gastrointestinal: No abdominal pain, No constipation, No diarrhea, No nausea, No vomiting Genitourinary: No dysuria, No frequency Musculoskeletal: no symptoms reported Skin: no symptoms reported Psychiatric/Neurological: No Symptoms Reported Physical Exam Physical Exam Vital Signs Vital Sign - Last 12Hours 01/13/17 11:55 Temp 96.4 Pulse 69 Resp 20 B/P (MAP) 127/77 Pulse Ox 96 O2 Delivery Room Air Capillary Refill : Less Than 3 Seconds General Appearance: No Apparent Distress, WD/WN Neck: Non Tender, Supple Respiratory: Lungs Clear, Normal Breath Sounds, No Accessory Muscle Use, No Respiratory Distress Cardiovascular: Regular Rate, Rhythm, No Edema, No JVD, No Murmur, Normal Peripheral Pulses Gastrointestinal: Normal Bowel Sounds, Non Tender, Soft Extremity: Normal Capillary Refill, Non Tender, No Calf Tenderness, Pedal Edema (trace) Neurologic/Psychiatric: Alert, Oriented x3 Results Results/Procedures Lab Laboratory Tests 01/13/17 12:00 Radiology CTA Chest: 1. Small burden of acute pulmonary embolus, with a single nonocclusive thrombus present in the right lower lobe posterior basilar segment. 2. No right ventricular strain or pulmonary hypertension. 3. Large hiatus hernia. Short Stay Diagnosis Discharge Diagnosis-Short Stay Admission Diagnosis RLL Pulmonary Embolism Final Discharge Diagnosis RLL Pulmonary Embolism Conclusion Plan See Problems Diagnosis/Problems Diagnosis/Problems (1) Pulmonary embolism Status: Acute Assessment & Plan: CTA showed acute PE Started on Eliquis in ED will continue -Previously had difficulty affording it so will check with CM prior to DC to inquire about insurane coverage Will likely need termite technician anticoagulation given this is 2nd occurrence (DVT in 2010 and current PE) Tolerated ambulatory ox well per verbal report Qualifiers: Qualified Codes: I26.99 - Other pulmonary embolism without acute cor pulmonale (2) Essential (primary) hypertension Assessment & Plan: Well controlled, continue home meds (3) Prophylactic measure Assessment & Plan: Eliquis for anticoagulation HH diet Saline Lock Clinical Quality Measures DVT/VTE Risk/Contraindication: Risk Factor Score Per Nursin RFS Level Per Nursing on Admit: 4+=Very High SATHISH OROZCO MD Jan 14, 2017 08:14
[2017-01-14 08:29] VITALS: BP 124/75
[2017-01-14] MEDS: APIXABAN 5 MG (ELIQUIS) TABLET PO SCH (08:51)
[2017-01-14] MEDS ORDERED: APIX5TAB PO (08:53)
--- NOTE | 2017-01-14 08:55 | Discharge Instructions ---
Discharge Instructions Patient Instructions Patient Instructions Please continue to take your medications as written. Please follow up with your PCP Dr. Chirinos in 1 week. Activity & Diet Discharge Diet: Cardiac Diet Activity as Tolerated: Yes SATHISH OROZCO MD Jan 14, 2017 08:55
[2017-01-14 10:30] VITALS: BP 124/75
== END 2017-01-14 09:53 | disposition home or self-care (01) ==
LOC: EDUNIT# 11:45 → ER 11:46 → UNDOADMOB 14:19 → ICU 14:19 → UNDODISOB 01-14 10:30
PROVIDERS: ADMIT Internal Medicine; ATTEND Internal Medicine
DX: I26.99 Other pulmonary embolism without acute cor pulmonale (principal); I10 Essential (primary) hypertension; K21.9 Gastro-esophageal reflux disease without esophagitis; K44.9 Diaphragmatic hernia without obstruction or gangrene; M66.0 Rupture of popliteal cyst; Z79.899 Other long term (current) drug therapy; Z96.651 Presence of right artificial knee joint; Z86.718 Personal history of other venous thrombosis and embolism
CPT/HCPCS: 36415; 71275; 80053; 84484; 85025; 93005; 93041; 94761

== ENCOUNTER → 2017-05-08 | Outpatient (CLI) | payer MEDICARE, OTHER ==
[~2017-05-08] MED LIST changes: +ACHD5005 PO; +APIX5TAB PO; +CHOL3000 PO; +CYAN500T2 PO; +ESTR0.5T PO; -HYDR-3812 PO; +HYDR-757 PO; +MAGNESIUM PO; +OMEP20CA12 PO; +TRIA1CAP4 PO; +[UNRECOGNIZED DRUG - OTHER] PO
--- NOTE | 2017-05-08 15:40 | Diagnostic Imaging Report ---
INDICATION: Knee pain. EXAMINATION: Ultrasound of the left knee. FINDINGS: The left lower extremity venous Doppler exam performed on 01/13/2017 failed to show any sign of a deep venous thrombosis. In reviewing that exam, there is no abnormality in the left popliteal fossa. On this study, there is now a 1.9 x 2.9 x 6.0 cm serpiginous fluid collection in the popliteal fossa. This does suggest a Hatfield's cyst. No other abnormality is noted. IMPRESSION: In the interval since the previous study, a 1.9 x 2.0 x 6.0 cm Hatfield's cyst has developed. There is no other abnormality identified. Dictated by: Dictated on workstation # [id number]
== END ==
LOC: RAD 14:39
PROVIDERS: ATTEND Internal Medicine
DX: M71.22 Synovial cyst of popliteal space [Baker], left knee (principal)
CPT/HCPCS: 76881

== ENCOUNTER 2017-07-08 22:45 | Observation (INO) | payer MEDICARE, OTHER ==
[~2017-07-08] VITALS: Ht 149.9 cm; Wt 78.5 kg
[2017-07-08] MEDS ORDERED: ASPIRIN 81 MG CHEW (CHILDREN'S ASA) PO ONE (23:45)
[2017-07-08 23:53] LABS: BASOPHILS % (AUTO) 0 % (0-10); EOSINOPHILS # (AUTO) 0.1 10^3/uL (0.0-0.3); EOSINOPHILS % (AUTO) 2 % (0-10); HEMATOCRIT 45 % (35-52); HEMOGLOBIN 14.6 G/DL (11.5-16.0); LYMPHOCYTES # (AUTO) 1.3 X 10^3 (1.0-4.0); LYMPHOCYTES % (AUTO) 17 % (12-44); MEAN CORPUSCULAR HEMOGLOBIN 28 PG (25-34); MEAN CORPUSCULAR HGB CONC 33 G/DL (32-36); MEAN CORPUSCULAR VOLUME 84 FL (80-99); MEAN PLATELET VOLUME 8.8 FL (7.4-10.4); MONOCYTES # (AUTO) 0.8 X 10^3 (0.0-1.0); MONOCYTES % (AUTO) 10 % (0-12); NEUTROPHILS # (AUTO) 5.6 X 10^3 (1.8-7.8); NEUTROPHILS % (AUTO) 71 % (42-75); PLATELET COUNT 374 10^3/uL (130-400); RED BLOOD COUNT 5.31 10^6/uL (4.35-5.85); RED CELL DISTRIBUTION WIDTH 16.7 % (10.0-14.5); WHITE BLOOD COUNT 7.9 10^3/uL (4.3-11.0)
[2017-07-09] VITALS (14 sets, daily range): BP systolic 150–176; BP diastolic 87–106
[2017-07-09] LABS: INR 1.1 (0.8-1.4); PROTHROMBIN TIME PATIENT 13.8 SEC (12.2-14.7)
[2017-07-09 00:12] LABS: ALANINE AMINOTRANSFERASE 13 U/L (0-55); ALBUMIN 3.8 GM/DL (3.2-4.5); ALKALINE PHOSPHATASE 67 U/L (40-136); AMYLASE 72 U/L (25-125); BILIRUBIN,TOTAL 0.5 MG/DL (0.1-1.0); BUN/CREATININE RATIO 11; CARBON DIOXIDE 19 MMOL/L (21-32); CHLORIDE 104 MMOL/L (98-107); CREATININE SERUM 0.83 MG/DL (0.60-1.30); GFR ESTIMATED > 60; GLUCOSE 136 MG/DL (70-105); LIPASE 24 U/L (8-78); POTASSIUM 3.3 MMOL/L (3.6-5.0); SODIUM 136 MMOL/L (135-145); TOTAL PROTEIN 6.6 GM/DL (6.4-8.2)
[2017-07-09 00:19] LABS: MYOGLOBIN SERUM 39.7 NG/ML (10.0-92.0)
[2017-07-09] MEDS ORDERED: NS IV 500 ML 500 ML IV ONE (00:27)
[2017-07-09] MEDS ORDERED: NS 250 ML (IVPB) BAG IV ONE (00:30)
[2017-07-09] MEDS ORDERED: IOHEXOL 350 MG/ML 150 ML (OMNIPAQUE 350) VIAL IV ONE (00:30)
--- NOTE | 2017-07-09 00:57 | ED Chest Pain ---
General Chief Complaint: Cardiac/General Problems Stated Complaint: ELEV BP Nursing Triage Note: pt presents to ED with complaints of hypertension starting this evening and cp that radiates to her back. pt reports a blood pressure at home 198/110 when her daughter manually took it. pt bp is 160/87 in triage and pt reports cp and back pain are gone. Nursing Sepsis Screen: No Definite Risk Source: patient Exam Limitations: no limitations History of Present Illness Date Seen by Provider: Jul 09, 2017 Time Seen by Provider: 00:20 Initial Comments Here with report of chest pain and high blood pressure. Chest pain lasted about 30 minutes and ended at time of arrival. Had recent hiatal hernia surgery 2 weeks ago. She is currently on aspirin but is no longer on Eliquis. Does have history of blood clots and pulmonary embolism. Reports persistent nausea and vomiting for the last several days since the surgery and has been hospitalized 3 times for that including once for dehydration. Denies diarrhea. Denies shortness of breath. Does complain of bilateral calf pain and swelling. 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 NTG SL REAL ESTATE MANAGER: No Associated Symptoms: No abdominal pain, No back pain, No edema, nausea/vomiting , No shortness of breath, weakness Allergies and Home Medications Allergies Coded Allergies: cephalexin (Unverified Allergy, Unknown, 02/24/16) meperidine (Unverified Allergy, Unknown, 02/24/16) morphine (Unverified Allergy, Unknown, 02/24/16) pentazocine (Unverified Allergy, Unknown, 02/24/16) Home Medications Apixaban 5 Mg Tablet, 10 MG PO BID Review 2 TABLETS TWICE DAILY X 7 DAYS Then 1 tablet twice a day Prescribed by: EDDIE RINCON on 07/09/17 1404 Cholecalciferol (Vitamin D3) 3,000 Unit Tablet, 3,000 UNIT PO HS, (Reported) Cyanocobalamin (Vitamin B-12) 500 Mcg Tablet, 500 MCG PO HS, (Reported) Iron Polysaccharide Complex 150 Mg Capsule, 150 MG PO BID, (Reported) Lactulose 10 Gm/15 Ml Solution, 15 ML PO BID, (Reported) Losartan Potassium 50 Mg Tablet, 50 MG PO DAILY, (Reported) Magnesium Oxide 400 Mg Tablet, 800 MG PO HS, (Reported) Metoclopramide HCl 10 Mg Tablet, 10 MG PO TID, (Reported) Montelukast Sodium 10 Mg Tablet, 10 MG PO HS, (Reported) Omeprazole 20 Mg Capsule.dr, 20 MG PO HS PRN for HEARTBURN, (Reported) Scopolamine 1 Each Patch.td.3, 1 PATCH TD Q72H, (Reported) Simvastatin 10 Mg Tablet, 10 MG PO HS, (Reported) [Megacal] YOUNGLIVING CAP, 2 CAP PO HS, (Reported) Patient Home Medication List Home Medication List Reviewed: Yes Review of Systems Constitutional: see HPI, No chills, No fever EENTM: No Symptoms Reported Respiratory: No Symptoms Reported Cardiovascular: See HPI, Chest Pain, Edema Gastrointestinal: See HPI, Nausea, Vomiting Genitourinary: No Symptoms Reported Musculoskeletal: back pain, No muscle pain Skin: no symptoms reported Psychiatric/Neurological: No Symptoms Reported Endocrine: No Symptoms Reported All Other Systems Reviewed Negative Unless Noted: Yes Past Lrpjjxj-Bmonld-Rrirts Hx Patient Social History Alcohol Use: Denies Use Recreational Drug Use: No Smoking Status: Never a Smoker 2nd Hand Smoke Exposure: No Recent Foreign Travel: No Contact w/Someone Who Travel: No Recent Infectious Disease Expo: No Recent Hopitalizations: No Physical Abuse: No Sexual Abuse: No Mistreated: No Fear: No Immunizations Up To Date Date of Pneumonia Vaccine: May 01, 2016 Seasonal Allergies Seasonal Allergies: No Surgeries History of Surgeries: Yes (R Total hip, Right total knee, right foot, hiatal hernia) Surgeries: Appendectomy, Ear Surgery, Eye Surgery, Gallbladder, Hysterectomy, Joint Replacement Respiratory History of Respiratory Disorde: Yes (frequent cough) Respiratory Disorders: Pulmonary Embolism Cardiovascular History of Cardiac Disorders: Yes Cardiac Disorders: Deep Vein Thrombosis, Heart Murmur, High Cholesterol, Hypertension Neurological History of Neurological Disord: No Reproductive System Hx Reproductive Disorders: No Sexually Transmitted Disease: No HIV/AIDS: No 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 Genitourinary History of Genitourinary Disor: No Gastrointestinal History of Gastrointestinal Di: Yes Gastrointestinal Disorders: C-Diff, Hiatal Hernia Musculoskeletal History of Musculoskeletal Dis: Yes (spinal stenosis) Musculoskeletal Disorders: Osteoporosis, Scoliosis Endocrine History of Endocrine Disorders: No HEENT History of HEENT Disorders: Yes HEENT Disorders: Cataract Cancer History of Cancer: No Psychosocial History of Psychiatric Problem: No Suicide Risk Score: 0 Integumentary History of Skin or Integumenta: No Blood Transfusions History of Blood Disorders: Yes (anemia) Reviewed Nursing Assessment Reviewed/Agree w Nursing PMH: Yes Family Medical History Significant Family History: No Pertinent Family Hx Family Medial History: Cardiovascular disease 19 FATHER 19 MOTHER G8 SISTER FH: CHF (congestive heart failure) 19 FATHER 19 MOTHER FH: COPD (chronic obstructive pulmonary disease) 19 MOTHER FH: cancer G8 BROTHER G8 SISTER FH: liver disease G8 SISTER Kidney disease G8 SISTER Physical Exam Vital Signs Vital Signs - First Documented 07/08/17 23:16 Temp 98.6 Pulse 79 Resp 18 B/P (MAP) 160/87 (111) Pulse Ox 94 O2 Delivery Room Air Capillary Refill : Less Than 3 Seconds General Appearance: No Apparent Distress, WD/WN HEENT: PERRL/EOMI, Pharynx Normal Neck: Non Tender, Supple Respiratory: Lungs Clear, Normal Breath Sounds Cardiovascular: Regular Rate, Rhythm, No Murmur Gastrointestinal: Non Tender, Soft Extremity: Normal Range of Motion, Calf Tenderness (bilateral), Swelling ( bilateral lower extremities) Neurologic/Psychiatric: Alert, Oriented x3 Skin: Normal Color, Warm/Dry Progress/Results/Core Measures Results/Orders Lab Results Laboratory Tests Test 07/08/17 23:42 Range/Units White Blood Count 7.9 4.3-11.0 10^3/uL Red Blood Count 5.31 4.35-5.85 10^6/uL Hemoglobin 14.6 11.5-16.0 G/DL Hematocrit 45 35-52 % Mean Corpuscular Volume 84 80-99 FL Mean Corpuscular Hemoglobin 28 25-34 PG Mean Corpuscular Hemoglobin Concent 33 32-36 G/DL Red Cell Distribution Width 16.7 H 10.0-14.5 % Platelet Count 374 130-400 10^3/uL Mean Platelet Volume 8.8 7.4-10.4 FL Neutrophils (%) (Auto) 71 42-75 % Lymphocytes (%) (Auto) 17 12-44 % Monocytes (%) (Auto) 10 0-12 % Eosinophils (%) (Auto) 2 0-10 % Basophils (%) (Auto) 0 0-10 % Neutrophils # (Auto) 5.6 1.8-7.8 X 10^3 Lymphocytes # (Auto) 1.3 1.0-4.0 X 10^3 Monocytes # (Auto) 0.8 0.0-1.0 X 10^3 Eosinophils # (Auto) 0.1 0.0-0.3 10^3/uL Basophils # (Auto) 0.0 0.0-0.1 10^3/uL Prothrombin Time 13.8 12.2-14.7 SEC INR Comment 1.1 0.8-1.4 Activated Partial Thromboplast Time 26 24-35 SEC D-Dimer 10.08 H 0.00-0.49 UG/ML Sodium Level 136 135-145 MMOL/L Potassium Level 3.3 L 3.6-5.0 MMOL/L Chloride Level 104 98-107 MMOL/L Carbon Dioxide Level 19 L 21-32 MMOL/L Anion Gap 13 5-14 MMOL/L Blood Urea Nitrogen 9 7-18 MG/DL Creatinine 0.83 0.60-1.30 MG/DL Estimat Glomerular Filtration Rate > 60 BUN/Creatinine Ratio 11 Glucose Level 136 H 70-105 MG/DL Calcium Level 10.0 8.5-10.1 MG/DL Magnesium Level 2.0 1.8-2.4 MG/DL Total Bilirubin 0.5 0.1-1.0 MG/DL Aspartate Amino Transf (AST/SGOT) 15 5-34 U/L Alanine Aminotransferase (ALT/SGPT) 13 0-55 U/L Alkaline Phosphatase 67 40-136 U/L Myoglobin 39.7 10.0-92.0 NG/ML Troponin I < 0.30 <0.30 NG/ML Total Protein 6.6 6.4-8.2 GM/DL Albumin 3.8 3.2-4.5 GM/DL Amylase Level 72 25-125 U/L Lipase 24 8-78 U/L My Orders Orders - MARILEE YEPEZ MD Cbc With Automated Diff (07/08/17 23:41) Magnesium (07/08/17 23:41) Chest 1 View, Ap/Pa Only (07/08/17 23:41) Ekg Tracing (07/08/17 23:41) Cardiac Profile 1 (07/08/17 23:41) Comprehensive Metabolic Panel (07/08/17 23:41) Myoglobin Serum (07/08/17 23:41) Protime With Inr (07/08/17 23:41) Partial Thromboplastin Time (07/08/17 23:41) O2 (07/08/17 23:41) Monitor-Rhythm Ecg Trace Only (07/08/17 23:41) Aspirin Chewable Tablet (Baby Aspirin Ch (07/08/17 23:45) Saline Lock/Iv-Start (07/08/17 23:41) Lipase (07/08/17 23:41) Amylase (07/08/17 23:41) Fibrin Degradation Products (07/08/17 23:41) Ct Angio Chest W (07/09/17 00:27) Saline Lock/Iv-Start (07/09/17 00:27) Ns Iv 500 Ml (Sodium Chloride 0.9%) (07/09/17 00:27) Iohexol Injection (Omnipaque 350 Mg/Ml 1 (07/09/17 00:30) Ns (Ivpb) (Sodium Chloride 0.9%) (07/09/17 00:30) Apixaban Tablet (Eliquis Tablet) (07/09/17 01:15) Medications Given in ED Vital Signs/I&O Vital Sign - Last 12Hours 07/08/17 23:16 Temp 98.6 Pulse 79 Resp 18 B/P (MAP) 160/87 (111) Pulse Ox 94 O2 Delivery Room Air Blood Pressure Mean: 111 Progress Note : Progress Note Seen and evaluated. IV, labs, EKG and chest x-ray ordered. D-dimer ordered given history. Monitor patient. 0020: D-dimer markedly elevated. CT angiogram of the chest ordered. Normal saline 500 mL bolus. Monitor patient. 0102: CT complete. Preliminary read shows bilateral pulmonary embolism. Awaiting final read. I discussed the case with Dr. RINCON. We will initiate Eliquis 10 mg by mouth twice a day. Patient has been on lactulose because of poor bowel movement since surgery. We will continue that. Findings concerns discussed with patient and family who agree. Admit, observation status. Patient to get further workup on legs for bilateral calf pain and this may be the source of the PE. Ultrasound bilateral lower extremities ordered for the morning. ECG Initial ECG Impression Date: Jul 09, 2017 Initial ECG Impression Time: 23:34 Initial ECG Rate: 77 Initial ECG Rhythm: Normal Sinus Initial ECG Intervals: Normal Initial ECG Comparisson: Unchanged Comment Sinus rhythm with normal axis. No evidence of ST elevation MD. Similar to previous. Interpreted by me. Diagnostic Imaging Diagonstic Imaging: Xray Plain Films/CT/US/NM/MRI: chest Comments no acute Diagonstic Imaging: CT Plain Films/CT/US/NM/MRI: chest Comments CT angiogram of the chest shows bilateral pulmonary embolism Reviewed: Reviewed by Me Departure Communication (Admissions) Time/Spoke to Admitting Phy: 01:02 Impression Impression: Primary Impression: Bilateral pulmonary embolism Additional Impression: Chest pain Qualified Codes: R07.9 - Chest pain, unspecified Disposition: ADMITTED INPATIENT Condition: Stable Admissions Decision to Admit Reason: Admit from ER (General) Decision to Admit/Date: Jul 09, 2017 Time/Decision to Admit Time: 01:02 Departure-Patient Inst. Referrals: FELIZ GUY DO (PCP/Family) Primary Care Physician Scripts Apixaban (Eliquis) 5 Mg Tablet 10 MG PO BID, #60 TAB Review 2 TABLETS TWICE DAILY X 7 DAYS Then 1 tablet twice a day Prov: EDDIE RINCON MD 07/09/17 MARILEE YEPEZ MD Jul 09, 2017 00:57
[2017-07-09] MEDS ORDERED: APIXABAN 5 MG (ELIQUIS) TABLET PO ONE (01:15)
--- OUTSIDE RECORDS SUMMARY | 2017-07-09 01:54 | XMS REPORT | Clinical Summary ---
Author Author [facility] Organization [facility] Address Unknown Phone Unavailable Care Team Providers Care Health And Wellness Advisor Name Role Phone Josué Bertrand MD Unavailable Aquilino Rey MD Unavailable Unknown, Unknown PCP Unavailable Nilesh Rubin MD Unavailable Hetal Duong Unavailable Leonel Medrano MD Unavailable Source Comments Some departments are not documenting in the electronic medical record. If you do not see the information that you expected, contact Release of Information in the Health Information Management department at [phone] for further assistance in locating additional records.[facility] Allergies Active Allergy Reactions Severity Noted Date [...] APPLY TO AFFECTED AREA 120 mL 5 02/20/20 Active % topical shampoo THREE TIMES A [...] Taken Blood Pressure 123/71 06/26/2016 4:03 PM COSMETOLOGY EDUCATOR Pulse 73 06/26/2016 4:03 PM COSMETOLOGY EDUCATOR Temperature - - Respiratory Rate - - Oxygen Saturation - - Inhaled Oxygen - - Concentration Weight 80.4 kg (177 lb 3.2 oz) 06/26/2016 4:03 PM COSMETOLOGY EDUCATOR Height 152.4 cm (5') 06/26/2016 4:03 PM COSMETOLOGY EDUCATOR Body Mass Index 34.61 06/26/2016 4:03 PM COSMETOLOGY EDUCATOR Plan of Treatment Health Maintenance Due Date Last Done Comments HEPATITIS C SCREENING 1945 PHYSICAL (COMPREHENSIVE) 1952 EXAM PERTUSSIS VACCINE 1956 TETANUS VACCINE 1962 BREAST CANCER SCREENING 1985 COLORECTAL CANCER 08/28/1995 SCREENING SHINGLES VACCINE 2005 OSTEOPOROSIS SCREENING 2010 PREVNAR/PNEUMOVAX (#1) 2010 INFLUENZA VACCINE 01/27/2018 Results Not on filefrom Last 3 Months
--- OUTSIDE RECORDS SUMMARY | 2017-07-09 01:54 | XMS REPORT | Continuity of Care Document ---
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
--- OUTSIDE RECORDS SUMMARY | 2017-07-09 01:55 | XMS REPORT | Continuity of Care Document ---
Author Author [facility] Organization [facility] Address Unknown Phone Unavailable Allergies Active Description Code Type Severity Reaction Onset Reported/Identified Relationship to Patient Clinical Status Yes cephalexin [id number] Drug Allergy Unknown N/A 02/24/2016 Yes meperidine [id number] Drug Allergy Unknown N/A 02/24/2016 Yes morphine [id number] Drug Allergy Unknown N/A 02/24/2016 Yes pentazocine [id number] Drug Allergy Unknown N/A 02/24/2016 Medications There is no data. Problems Date Dx Coded Attending Type Code Diagnosis Diagnosed By 06/16/2010 Ot 706.2 06/16/2010 Ot 727.43 10/23/2010 Ot 715.97 OSTEOARTHROS NOS-ANKLE 10/23/2010 Ot 727.1 BUNION 10/23/2010 Ot 733.99 BONE CARTILAGE DIS NEC 10/23/2010 Ot 735.0 HALLUX VALGUS 10/23/2010 Ot 735.4 OTHER HAMMER TOE 10/23/2010 Ot 754.52 METATARSUS PRIMUS VARUS 11/04/2010 Ot 272.4 HYPERLIPIDEMIA NEC/NOS 11/04/2010 Ot 401.9 HYPERTENSION NOS 11/04/2010 Ot 443.9 PERIPH VASCULAR DIS NOS 11/04/2010 Ot 453.42 ACUTE VENOUS EMBOLISM THROMBOSIS DEEP 11/04/2010 Ot 530.81 ESOPHAGEAL REFLUX 11/04/2010 Ot 997.2 SURG COMP- STACY VASC SYST 11/04/2010 Ot V07.4 HORMONE REPLACEMENT THERAPY (POSTMENOPAU 03/16/2011 Ot 843.9 SPRAIN HIP THIGH NOS 03/16/2011 Ot 959.6 HIP THIGH INJURY NOS 03/16/2011 Ot E000.8 OTHER EXTERNAL CAUSE STATUS 03/16/2011 Ot E849.0 ACCIDENT IN HOME 03/16/2011 Ot E885.9 FALL FROM SLIPPING, TRIPPING, OR STUMBLI 04/12/2014 FELIZ GUY DO Ot V76.12 01/11/2015 FELIZ GUY DO Ot 719.45 01/11/2015 FELIZ GUY DO Ot 721.3 01/11/2015 FELIZ GUY DO Ot 737.30 05/26/2015 Ot 709.9 05/26/2015 Ot 727.43 05/26/2015 Ot V72.63 05/26/2015 Ot V74.8 05/26/2015 Ot V72.83 05/26/2015 Ot V74.8 05/26/2015 Ot 735.0 05/26/2015 Ot V72.83 05/26/2015 Ot 611.72 05/26/2015 Ot V76.12 05/26/2015 Ot 793.89 05/26/2015 Ot 453.42 05/26/2015 Ot 453.40 05/26/2015 Ot 793.89 05/26/2015 Ot V76.12 05/26/2015 Ot 722.0 05/26/2015 FELIZ GUY DO Ot V76.12 05/26/2015 CAMI ABARCA INSTRUMENT SPECIALIST Ot 553.3 05/26/2015 CAMI ABARCA INSTRUMENT SPECIALIST Ot 786.2 05/26/2015 CAMI GUY BILLET CHECKER Ot 729.5 05/26/2015 CAMI GUY BILLET CHECKER Ot V12.51 05/26/2015 FELIZ GUY DO Ot V76.12 05/26/2015 FELIZ GUY DO Ot 719.45 05/26/2015 FELIZ GUY DO Ot 721.3 05/26/2015 FELIZ GUY DO Ot 737.30 06/15/2015 FELIZ GUY DO Ot Z12.31 06/15/2015 FELIZ GUY DO Ot Z13.820 06/15/2015 FELIZ GUY DO Ot Z78.0 09/28/2015 Ot 453.42 ACUTE VENOUS EMBOLISM THROMBOSIS DEEP 01/16/2016 FELIZ GUY DO Ot M25.551 PAIN IN RIGHT HIP 01/18/2016 FELIZ GUY DO Ot M25.551 PAIN IN RIGHT HIP 02/08/2016 FELIZ GUY DO Ot M25.551 PAIN IN RIGHT HIP 02/22/2016 FELIZ GUY DO Ot M25.551 PAIN IN RIGHT HIP 02/23/2016 MARI DENT MD Ot D64.9 ANEMIA, UNSPECIFIED 02/23/2016 MARI DENT MD Ot M87.9 OSTEONECROSIS, UNSPECIFIED 02/23/2016 MARI DENT MD Ot Z01.818 ENCOUNTER FOR OTHER PREPROCEDURAL EXAMIN 02/24/2016 MARI DENT MD Ot D50.9 IRON DEFICIENCY ANEMIA, UNSPECIFIED 02/24/2016 MARI DENT MD Ot K31.7 POLYP OF STOMACH AND DUODENUM 02/24/2016 MARI DENT MD Ot K44.9 DIAPHRAGMATIC HERNIA WITHOUT OBSTRUCTION 02/24/2016 MARI DENT MD Ot K57.30 DVRTCLOS OF LG INT W/O PERFORATION OR AB 02/24/2016 MARI DENT MD Ot K63.5 POLYP OF COLON 02/24/2016 MARI DENT MD Ot D50.9 IRON DEFICIENCY ANEMIA, UNSPECIFIED 02/24/2016 MARI DENT MD Ot K31.7 POLYP OF STOMACH AND DUODENUM 02/24/2016 MARI DENT MD Ot K44.9 DIAPHRAGMATIC HERNIA WITHOUT OBSTRUCTION 02/24/2016 MARI DENT MD Ot K57.30 DVRTCLOS OF LG INT W/O PERFORATION OR AB 02/24/2016 MARI DENT MD Ot K63.5 POLYP OF COLON 02/27/2016 MARI DENT MD Ot D50.9 IRON DEFICIENCY ANEMIA, UNSPECIFIED 02/27/2016 MARI DENT MD Ot K31.7 POLYP OF STOMACH AND DUODENUM 02/27/2016 MARI DENT MD Ot K44.9 DIAPHRAGMATIC HERNIA WITHOUT OBSTRUCTION 02/27/2016 MARI DENT MD Ot K57.30 DVRTCLOS OF LG INT W/O PERFORATION OR AB 02/27/2016 MARI DENT MD Ot K63.5 POLYP OF COLON 02/28/2016 Ot 453.42 ACUTE VENOUS EMBOLISM THROMBOSIS DEEP 03/02/2016 MARI DENT MD Ot D50.9 IRON DEFICIENCY ANEMIA, UNSPECIFIED 03/02/2016 MARI DENT MD Ot K31.7 POLYP OF STOMACH AND DUODENUM 03/02/2016 MARI DENT MD Ot K44.9 DIAPHRAGMATIC HERNIA WITHOUT OBSTRUCTION 03/02/2016 MARI DNET MD Ot K57.30 DVRTCLOS OF LG INT W/O PERFORATION OR AB 03/02/2016 MARI DENT MD Ot K63.5 POLYP OF COLON 04/05/2016 Ot 793.89 OTH (ABN) FINDINGS ON RADIOLOGICAL EXAMI 04/05/2016 Ot 453.42 ACUTE VENOUS EMBOLISM THROMBOSIS DEEP 04/05/2016 Ot 453.40 ACUTE VENOUS EMBOLISM THROMBOSIS UNSP 04/05/2016 Ot 793.89 OTH (ABN) FINDINGS ON RADIOLOGICAL EXAMI 04/05/2016 Ot V76.12 OTH SCREEN MAMMO-MALIGN NEOPLASM OF TERRI 04/05/2016 Ot 722.0 CERVICAL DISC DISPLACMNT 04/05/2016 FELIZ GUY DO, Ot V76.12 OTH SCREEN MAMMO-MALIGN NEOPLASM OF TERRI 04/05/2016 RIMA CAMI C INSTRUMENT SPECIALIST Ot 553.3 DIAPHRAGMATIC HERNIA 04/05/2016 RIMA CAMI C INSTRUMENT SPECIALIST Ot 786.2 COUGH 04/05/2016 CAMI GUY BILLET CHECKER Ot 729.5 PAIN IN LIMB 04/05/2016 CAMI GUY BILLET CHECKER Ot V12.51 HX-VENOUS THROMBOSIS EMBOLISM 04/05/2016 FELIZ GUY DO, Ot V76.12 OTH SCREEN MAMMO-MALIGN NEOPLASM OF TERRI 04/05/2016 FELIZ GUY DO Ot 719.45 JOINT PAIN-PELVIS 04/05/2016 FELIZ GUY DO Ot 721.3 LUMBOSACRAL SPONDYLOSIS 04/05/2016 FELIZ GUY DO Ot 737.30 IDIOPATHIC SCOLIOSIS 04/05/2016 FELIZ GUY DO, Ot Z12.31 ENCNTR SCREEN MAMMOGRAM FOR MALIGNANT NE 04/05/2016 FELIZ GUY DO Ot Z13.820 ENCOUNTER FOR SCREENING FOR OSTEOPOROSIS 04/05/2016 FELIZ GUY DO Ot Z78.0 ASYMPTOMATIC MENOPAUSAL STATE 04/05/2016 FELIZ GUY DO, Ot M25.551 PAIN IN RIGHT HIP 04/10/2016 FELIZ GUY DO Ot D50.9 IRON DEFICIENCY ANEMIA, UNSPECIFIED 05/08/2016 FELIZ GUY DO, Ot D50.9 IRON DEFICIENCY ANEMIA, UNSPECIFIED 05/18/2016 FELIZ GUY DO Ot D50.9 IRON DEFICIENCY ANEMIA, UNSPECIFIED 06/07/2016 CAMI GUY Ot Z12.31 ENCNTR SCREEN MAMMOGRAM FOR MALIGNANT NE 06/07/2016 CAMI GUY BILLET CHECKER Ot Z12.31 ENCNTR SCREEN MAMMOGRAM FOR MALIGNANT NE 06/28/2016 CAMI GUY Ot Z12.31 ENCNTR SCREEN MAMMOGRAM FOR MALIGNANT NE 01/11/2017 MARIANNA CLIFFORD Ot D64.9 ANEMIA, UNSPECIFIED 01/11/2017 MARIANNA CLIFFORD Ot I10 ESSENTIAL (PRIMARY) HYPERTENSION 01/11/2017 MARIANNA CLIFFORD Ot K21.9 GASTRO-ESOPHAGEAL REFLUX DISEASE WITHOUT 01/11/2017 MARIANNA CLIFFORD Ot M25.562 PAIN IN LEFT KNEE 01/11/2017 MARIANNA CLIFFORD Ot M41.9 SCOLIOSIS, UNSPECIFIED 01/11/2017 MARIANNA CLIFFORD Ot M71.22 SYNOVIAL CYST OF POPLITEAL SPACE [RUEDA] 01/11/2017 MARIANNA CLIFFORD Ot M81.0 AGE-RELATED OSTEOPOROSIS W/O CURRENT PAT 01/11/2017 MARIANNA CLIFFORD Ot X50.0XXA OVEREXERTION FROM STRENUOUS MOVEMENT OR 01/11/2017 MARIANNA CLIFFORD Ot Z87.19 PERSONAL HISTORY OF OTHER DISEASES OF TH 01/11/2017 MARIANNA CLIFFORD Ot Z90.49 ACQUIRED ABSENCE OF OTHER SPECIFIED PART 01/11/2017 MARIANNA CLIFFORD Ot Z90.710 ACQUIRED ABSENCE OF BOTH CERVIX AND UTER 01/11/2017 MARIANNA CLIFFORD Ot Z96.641 PRESENCE OF RIGHT ARTIFICIAL HIP JOINT 01/11/2017 MARIANNA CLIFFORD Ot Z96.651 PRESENCE OF RIGHT ARTIFICIAL KNEE JOINT 01/14/2017 MARIANNA CLIFFORD Ot D64.9 ANEMIA, UNSPECIFIED 01/14/2017 MARIANNA CLIFFORD Ot I10 ESSENTIAL (PRIMARY) HYPERTENSION 01/14/2017 MARIANNA CLIFFORD Ot K21.9 GASTRO-ESOPHAGEAL REFLUX DISEASE WITHOUT 01/14/2017 MARIANNA CLIFFORD Ot M25.562 PAIN IN LEFT KNEE 01/14/2017 MARIANNA CLIFFORD Ot M41.9 SCOLIOSIS, UNSPECIFIED 01/14/2017 MARIANNA CLIFFORD Ot M71.22 SYNOVIAL CYST OF POPLITEAL SPACE [MOHIT] 01/14/2017 MARIANNA CLIFFORD Ot M81.0 AGE-RELATED OSTEOPOROSIS W/O CURRENT PAT 01/14/2017 MARIANNA CLIFFORD Ot X50.0XXA OVEREXERTION FROM STRENUOUS MOVEMENT OR 01/14/2017 MARIANNA CLIFFORD Ot Z87.19 PERSONAL HISTORY OF OTHER DISEASES OF TH 01/14/2017 MARIANNA CLIFFORD Ot Z90.49 ACQUIRED ABSENCE OF OTHER SPECIFIED PART 01/14/2017 MARIANNA CLIFFORD Ot Z90.710 ACQUIRED ABSENCE OF BOTH CERVIX AND UTER 01/14/2017 MARIANNA CLIFFORD Ot Z96.641 PRESENCE OF RIGHT ARTIFICIAL HIP JOINT 01/14/2017 MARIANNA CLIFFORD Ot Z96.651 PRESENCE OF RIGHT ARTIFICIAL KNEE JOINT 01/14/2017 MARI DENT MD Ot I10 ESSENTIAL (PRIMARY) HYPERTENSION 01/14/2017 MARI DENT MD, Ot I26.99 OTHER PULMONARY EMBOLISM WITHOUT ACUTE C 01/14/2017 MARI DENT MD, Ot K21.9 GASTRO-ESOPHAGEAL REFLUX DISEASE WITHOUT 01/14/2017 MARI DENT MD, Ot K44.9 DIAPHRAGMATIC HERNIA WITHOUT OBSTRUCTION 01/14/2017 MARI DENT MD, Ot M66.0 RUPTURE OF POPLITEAL CYST 01/14/2017 MARI DENT MD, Ot Z79.899 OTHER FPC (CURRENT) DRUG THERAPY 01/14/2017 MARI DENT MD, Ot Z86.718 PERSONAL HISTORY OF OTHER VENOUS THROMBO 01/14/2017 MARI DENT MD, Ot Z96.651 PRESENCE OF RIGHT ARTIFICIAL KNEE JOINT 05/09/2017 FELIZ GUY DO, Ot M71.22 SYNOVIAL CYST OF POPLITEAL SPACE [MOHIT] 05/28/2017 FELIZ GUY DO, Ot M71.22 SYNOVIAL CYST OF POPLITEAL SPACE [MOHIT] Procedures There is no data. Results Test Result Range RED CELLS LEUKO REDUCED AS1 - 04/05/16 10:10 RED CELLS LEUKO REDUCED AS1 TRANSFUSED 04/05/16 1121 NRG Blood type T Indirect antibody screen panel - 04/05/16 10:10 ABO+Rh group AP NRG Transfusion band number [id number] Blood group antibody screen NEGATIVE NRG Complete blood count (CBC) with automated white blood cell (WBC) differential - 01/13/17 12:00 Blood leukocytes automated count (number/volume) 5.9 10*3/uL 4.3-11.0 Blood erythrocytes automated count (number/volume) 5.19 10*6/uL 4.35-5.85 Venous blood hemoglobin measurement (mass/volume) 12.4 g/dL 11.5-16.0 Blood hematocrit (volume fraction) 40 % 35-52 Automated erythrocyte mean corpuscular volume 78 [foz_us] 80-99 Automated erythrocyte mean corpuscular hemoglobin (mass per erythrocyte) 24 pg 25-34 Automated erythrocyte mean corpuscular hemoglobin concentration measurement ( mass/volume) 31 g/dL 32-36 Automated erythrocyte distribution width ratio 18.1 % 10.0-14.5 Automated blood platelet count (count/volume) 342 10*3/uL 130-400 Automated blood platelet mean volume measurement 8.9 [foz_us] 7.4-10.4 Automated blood neutrophils/100 leukocytes 68 % 42-75 Automated blood lymphocytes/100 leukocytes 23 % 12-44 Blood monocytes/100 leukocytes 8 % 0-12 Automated blood eosinophils/100 leukocytes 1 % 0-10 Automated blood basophils/100 leukocytes 1 % 0-10 Blood neutrophils automated count (number/volume) 4.0 10*3 1.8-7.8 Blood lymphocytes automated count (number/volume) 1.3 10*3 1.0-4.0 Blood monocytes automated count (number/volume) 0.5 10*3 0.0-1.0 Automated eosinophil count 0.1 10*3/uL 0.0-0.3 Automated blood basophil count (count/volume) 0.0 10*3/uL 0.0-0.1 Comprehensive metabolic panel - 01/13/17 12:00 Serum or plasma sodium measurement (moles/volume) 137 mmol/L 135-145 Serum or plasma potassium measurement (moles/volume) 3.8 mmol/L 3.6-5.0 Serum or plasma chloride measurement (moles/volume) 103 mmol/L 98-107 Carbon dioxide 21 mmol/L 21-32 Serum or plasma anion gap determination (moles/volume) 13 mmol/L 5-14 Serum or plasma urea nitrogen measurement (mass/volume) 21 mg/dL 7-18 Serum or plasma creatinine measurement (mass/volume) 0.98 mg/dL 0.60-1.30 Serum or plasma urea nitrogen/creatinine mass ratio 21 NRG Serum or plasma creatinine measurement with calculation of estimated glomerular filtration rate 56 NRG Serum or plasma glucose measurement (mass/volume) 140 mg/dL 70-105 Serum or plasma calcium measurement (mass/volume) 9.5 mg/dL 8.5-10.1 Serum or plasma total bilirubin measurement (mass/volume) 0.3 mg/dL 0.1-1.0 Serum or plasma alkaline phosphatase measurement (enzymatic activity/volume) 58 U/L 40-136 Serum or plasma aspartate aminotransferase measurement (enzymatic activity/ volume) 14 U/L 5-34 Serum or plasma alanine aminotransferase measurement (enzymatic activity/volume ) 10 U/L 0-55 Serum or plasma protein measurement (mass/volume) 6.5 g/dL 6.4-8.2 Serum or plasma albumin measurement (mass/volume) 3.9 g/dL 3.2-4.5 Serum or plasma troponin i.cardiac measurement (mass/volume) - 01/13/17 12:00 Serum or plasma troponin i.cardiac measurement (mass/volume) < ng/ mL <0.30 Encounters ACCT No. Visit Date/Time Discharge Status Pt. Type Provider Facility Loc./Unit Complaint [id number] 05/08/2017 14:39:00 05/08/2017 23:59:59 CLS Outpatient FELIZ GUY DO [facility] RAD BAKERS CYST LT KNEE [id number] 01/13/2017 16:00:00 01/14/2017 09:53:00 DIS Inpatient JAILENE HAN, MARI Simon [facility] ICU RLL PULMONARY EMBOLISM [id number] 01/11/2017 13:24:00 01/11/2017 16:28:00 DIS Emergency MARIANNA CLIFFORD [facility] ER LT LEG PAIN [id number] 06/06/2016 10:28:00 06/06/2016 23:59:59 CLS Outpatient CAMI GUY [facility] RAD SCREENING [id number] 04/05/2016 09:39:00 04/05/2016 23:59:59 CLS Outpatient FELIZ GUY DO [facility] D50.9 [id number] 02/24/2016 08:19:00 02/24/2016 11:30:00 DIS Outpatient MARI DENT MD [facility] ANEMIA [id number] 02/23/2016 12:46:00 02/23/2016 12:58:00 DIS Outpatient MARI DENT MD [facility] PREOP ANEMIA [id number] 01/14/2016 07:13:00 01/14/2016 23:59:59 CLS Outpatient FELIZ GUY DO [facility] RAD RT HIP PAIN [id number] 05/26/2015 08:39:00 05/26/2015 23:59:59 CLS Outpatient FELIZ GUY DO [facility] RAD SCREENING, OSTEOPOROSIS,MENOPAUSE [id number] 12/21/2014 10:25:00 12/21/2014 23:59:59 CLS Outpatient FELIZ GUY DO [facility] RAD SPONDYLOSIS, OSTEOARTHRITIS [id number] 03/16/2014 13:32:00 03/16/2014 23:59:59 CLS Outpatient FELIZ GUY DO [facility] RAD ROUTINE [id number] 09/29/2013 09:09:00 09/29/2013 23:59:59 CLS Outpatient CAMI GUY BILLET CHECKER [facility] RAD LOWER LEFT CALF PAIN, HX DVT [id number] 06/18/2013 11:51:00 06/18/2013 23:59:59 CLS Outpatient RIDINGSCAMI INSTRUMENT SPECIALIST [facility] RAD COUGH [id number] 12/09/2012 09:11:00 12/09/2012 23:59:59 CLS Outpatient FELIZ GUY DO [facility] RAD SCREENING [id number] 03/18/2012 10:24:00 Document Registration [id number] 10/18/2011 08:53:00 Document Registration [id number] 03/16/2011 16:34:00 Document Registration [id number] 01/15/2011 13:57:00 Document Registration [id number] 11/16/2010 14:34:00 Document Registration [id number] 10/31/2010 17:54:00 Document Registration [id number] 10/31/2010 15:33:00 Document Registration [id number] 10/23/2010 05:36:00 Document Registration [id number] 10/18/2010 13:18:00 Document Registration [id number] 10/10/2010 15:09:00 Document Registration [id number] 10/06/2010 09:29:00 Document Registration [id number] 06/20/2010 14:37:00 Document Registration [id number] 06/16/2010 05:36:00 Document Registration [id number] 06/13/2010 15:47:00 Document Registration
[2017-07-09] MEDS ORDERED: NS IV 1000 ML 1,000 ML IV SCH (03:15)
[2017-07-09] MEDS ORDERED: NITROGLYCERIN 0.4 MG SL TABS BTL 25'S SL PRN (03:30)
[2017-07-09 06:49] LABS: BASOPHILS % (AUTO) 1 % (0-10); EOSINOPHILS # (AUTO) 0.1 10^3/uL (0.0-0.3); EOSINOPHILS % (AUTO) 1 % (0-10); HEMATOCRIT 41 % (35-52); HEMOGLOBIN 13.5 G/DL (11.5-16.0); LYMPHOCYTES % (AUTO) 15 % (12-44); MEAN CORPUSCULAR HEMOGLOBIN 28 PG (25-34); MEAN CORPUSCULAR HGB CONC 33 G/DL (32-36); MEAN CORPUSCULAR VOLUME 83 FL (80-99); MEAN PLATELET VOLUME 9.1 FL (7.4-10.4); MONOCYTES # (AUTO) 0.6 X 10^3 (0.0-1.0); MONOCYTES % (AUTO) 10 % (0-12); NEUTROPHILS # (AUTO) 4.7 X 10^3 (1.8-7.8); NEUTROPHILS % (AUTO) 74 % (42-75); PLATELET COUNT 364 10^3/uL (130-400); RED CELL DISTRIBUTION WIDTH 16.7 % (10.0-14.5); WHITE BLOOD COUNT 6.4 10^3/uL (4.3-11.0)
--- NOTE | 2017-07-09 06:58 | Diagnostic Imaging Report ---
PROCEDURE: CT angiography of the chest with contrast. TECHNIQUE: Multiple contiguous axial images were obtained through the chest after uneventful bolus administration of intravenous contrast. Reconstructed CTA MIP acquisitions were also performed. INDICATION: Elevated blood pressure, shortness of breath. COMPARISON: 01/13/2017 FINDINGS: Vasculature: There are nonocclusive filling defects in the bilateral lower lobe segmental and subsegmental basilar segments indicative of acute pulmonary emboli. No upper lobe pulmonary emboli seen on either side. No dilation of the pulmonary trunk to suggest pulmonary hypertension. No imaging features right ventricular strain. Thoracic aorta is normal in caliber. No aortic dissection or pseudoaneurysm. Heart and mediastinum: Visualized thyroid is normal. No supraclavicular, axillary, or intra-thoracic lymphadenopathy. Heart is mildly enlarged without pericardial effusion. Moderate-sized hiatus hernia has decreased. There may have been recent surgical changes from Garrett fundoplication. Pleura: No pleural effusion or pneumothorax. Lungs and airway: No endoluminal lesion in the trachea or central bronchi. Bandlike opacities in the bilateral lung bases are present. No mass or suspicious nodule. Upper abdomen: Allowing for the phase of contrast, no acute abnormality in the upper abdomen is seen. Musculoskeletal: No concerning osseous lesion. IMPRESSION: 1. Small burden of acute bilateral segmental and subsegmental pulmonary emboli in the bilateral lower lobes. No right ventricular strain or pulmonary hypertension. 2. Decreased size of hiatal hernia with fluid adjacent to the gastroesophageal junction. This may be postoperative in nature and correlation with patient's surgical history is advised. 3. Bilateral lower lobe airspace opacities favor atelectasis. 4. Findings are in agreement with the preliminary report. Dictated by: Dictated on workstation # [id number]
[2017-07-09 07:10] LABS: MYOGLOBIN SERUM 34.2 NG/ML (10.0-92.0)
[2017-07-09 07:15] LABS: ALANINE AMINOTRANSFERASE 13 U/L (0-55); ALBUMIN 3.5 GM/DL (3.2-4.5); ALKALINE PHOSPHATASE 61 U/L (40-136); BILIRUBIN,TOTAL 0.4 MG/DL (0.1-1.0); BUN/CREATININE RATIO 10; CARBON DIOXIDE 21 MMOL/L (21-32); CHLORIDE 104 MMOL/L (98-107); CHOLESTEROL 149 MG/DL (< 200); CREATININE SERUM 0.72 MG/DL (0.60-1.30); GFR ESTIMATED > 60; GLUCOSE 118 MG/DL (70-105); HDL CHOLESTEROL 41 MG/DL (40-60); POTASSIUM 3.5 MMOL/L (3.6-5.0); SODIUM 134 MMOL/L (135-145); TOTAL PROTEIN 6.1 GM/DL (6.4-8.2); TRIGLYCERIDES 92 MG/DL (<150); VLDL CHOLESTEROL 18 MG/DL (5-40)
[2017-07-09] MEDS ORDERED: CATHETER FLUSH 10 ML SYR IV PRN (07:15)
[2017-07-09] MEDS ORDERED: INFLUENZA TRIvalent 2017-2018 0.5 ML/45 MCG SYR IM ONE (07:15)
--- NOTE | 2017-07-09 07:31 | Diagnostic Imaging Report ---
CHEST 1 VIEW, AP/PA ONLY Indication: Hypertension. Comparison: 06/18/2013 Findings: Stable left basilar linear opacities favoring atelectasis or scar. No new focal airspace disease in the visualized lungs. Please note that the posterior lower lobes are poorly evaluated by portable radiography. No pleural effusion or pneumothorax. Normal cardiomediastinal silhouette. Impression: No acute cardiopulmonary process by portable radiography. Dictated by: Dictated on workstation # [id number]
[2017-07-09] MEDS ORDERED: SCOP1PAT17 TD (08:33)
[2017-07-09] MEDS ORDERED: LOSA50TA36 PO (08:33)
[2017-07-09] MEDS ORDERED: METO10TA3 PO (08:44)
[2017-07-09] MEDS ORDERED: MAGN400T39 PO (08:46)
[2017-07-09] MEDS ORDERED: LACT10SO PO (08:49)
[2017-07-09] MEDS ORDERED: LACTULOSE SYRUP 10GM/15ML (ENULOSE) 30ML UDC PO SCH ×2 (09:00→10:45)
[2017-07-09] MEDS ORDERED: APIXABAN 5 MG (ELIQUIS) TABLET PO SCH (09:00)
[2017-07-09] MEDS ORDERED: ASPIRIN E.C. 325 MG (ECOTRIN) TABLET PO SCH (09:00)
[2017-07-09] MEDS ORDERED: LOSARTAN 50 MG (COZAAR) TAB PO SCH (10:30)
[2017-07-09] MEDS ORDERED: METOCLOPRAMIDE 10 MG (REGLAN) TAB PO SCH ×2 (11:00→11:11)
[2017-07-09] MEDS ORDERED: PATIENT MAY USE OWN MEDS, ALL MC SCH (11:00)
--- NOTE | 2017-07-09 11:31 | Diagnostic Imaging Report ---
EXAMINATION: Bilateral lower extremity venous Doppler. INDICATION: Leg pain and swelling. TECHNIQUE: Spectral and color flow imaging of the deep venous system was performed. FINDINGS: The previous left lower extremity venous Doppler exam performed on 01/11/2017 failed to show any sign of a deep venous thrombosis. On this study, there is still generally good blood flow and compressibility throughout the deep venous system of the left lower extremity; however, there does appear to be thrombosis of the popliteal and peroneal veins on the right. The remainder of the right deep venous system is unremarkable for thrombus formation. During the course of the exam, a 3.1 x 1.4 x 2.1 cm Hatfield's cyst was seen in the popliteal fossa on the right. IMPRESSION: 1. There is thrombosis of the popliteal and peroneal veins on the right. There is no other evidence for deep venous thrombosis. 2. There is a 3.1 x 2.1 cm Hatfield's cyst in the popliteal fossa on the right. 3. These results were called to Dr. Alegria at the time of this dictation. CRITICAL FINDING Dictated by: Dictated on workstation # [id number]
--- NOTE | 2017-07-09 13:54 | Short Stay Summary-Hospitalist ---
HPI History of Present Illness: HPI/Chief Complaint The patient is a 71-year-old white female known to me. She presented to the emergency room early this morning with complaints of chest pain. She had recently had hiatal hernia surgery done in [place]. Apparently she had a goodly portion of stomach above the diaphragm. This was brought back into the abdominal cavity and packed and then mash was used at the hiatus. She has had difficulty with nausea and vomiting since then. Dr. Howie Luo worm picker subsequently performed a endoscopic dilatation. The patient' s reports that she continues to gag and spit up liquids and saliva. She had previously had a DVT and pulmonary emboli after orthopedic surgery and had been on Eliquis. This had been discontinued some time ago. CT pulmonary angiogram performed from the ER showed bilateral pulmonary emboli in the first and second order pulmonary arteries. The patient was started on Eliquis in the emergency room and was admitted for observation. Their plan had been to return to see Dr. Luo as she is still vomiting. The CT scan was reviewed. The lower extremity venous Dopplers were also reviewed. There was evidence of thrombosis at the popliteal fossa area. The patient and her were advised that she would be on blood thinner the rest for life as this was her second event. Source: patient Exam Limitations: no limitations Date Seen 07/09/17 Time Seen by Provider: 13:48 Attending Physician Tevin Rincon MD PCP Sylvester Chirinos DO Referring Physician Date of Admission Jul 09, 2017 at 01:20 Home Medications & Allergies Home Medications Reviewed patient Home Medication Reconciliation preformed by pharmacy medication reconciliations binder technician and/or nursing. Patients Allergies have been reviewed. Allergies Allergies Coded Allergies cephalexin (Unverified Allergy, Unknown, 02/24/16) meperidine (Unverified Allergy, Unknown, 02/24/16) morphine (Unverified Allergy, Unknown, 02/24/16) pentazocine (Unverified Allergy, Unknown, 02/24/16) Past Bczggwr-Ugtcah-Xlsazw Hx Patient Social History Marrital Status: Number of Children: 1 Alcohol Use: Denies Use Number of Drinks Today: AA Recreational Drug Use: No Smoking Status: Never a Smoker 2nd Hand Smoke Exposure: No Physical Abuse Screen: No Sexual Abuse: No Recent Foreign Travel: No Contact w/other who traveled: No Recent Hopitalizations: No Recent Infectious Disease Expo: No Immunizations Up To Date Date of Pneumonia Vaccine: May 01, 2016 Seasonal Allergies Seasonal Allergies: No Surgeries Yes (R Total hip, Right total knee, right foot, hiatal hernia) Appendectomy, Ear Surgery, Eye Surgery, Gallbladder, Hysterectomy, Joint Replacement Respiratory Yes Cardiovascular Yes Deep Vein Thrombosis, Heart Murmur, High Cholesterol, Hypertension Neurological No Reproductive System Hx Reproductive Disorders: No Sexually Transmitted Disease: No HIV/AIDS: No 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 Genitourinary No Gastrointestinal Yes C-Diff, Hiatal Hernia Musculoskeletal Yes (spinal stenosis) Osteoporosis, Scoliosis Endocrine History of Endocrine Disorders: No HEENT History of HEENT Disorders: Yes HEENT Disorders: Cataract Cancer No Psychosocial History of Psychiatric Problem: No Integumentary History of Skin or Integumenta: No Blood Transfusions History of Blood Disorders: Yes (anemia) Adverse Reaction to a Blood Tr: No Reviewed Nursing Assessment Reviewed/Agree w Nursing PMH: Yes Family Medical History Significant Family History: No Pertinent Family Hx Family Hx: Cardiovascular disease 19 FATHER 19 MOTHER G8 SISTER FH: CHF (congestive heart failure) 19 FATHER 19 MOTHER FH: COPD (chronic obstructive pulmonary disease) 19 MOTHER FH: cancer G8 BROTHER G8 SISTER FH: liver disease G8 SISTER Kidney disease G8 SISTER Review of Systems Constitutional: see HPI, other EENTM: no symptoms reported Respiratory: no symptoms reported Cardiovascular: no symptoms reported Gastrointestinal: see HPI, heartburn, nausea, vomiting Genitourinary: no symptoms reported Musculoskeletal: no symptoms reported Skin: no symptoms reported Psychiatric/Neurological: No Symptoms Reported Physical Exam Physical Exam Vital Signs Vital Signs - First Documented 07/08/17 07/09/17 23:16 02:50 Temp 98.6 Pulse 79 Resp 18 B/P (MAP) 160/87 (111) Pulse Ox 94 O2 Delivery Room Air O2 Flow Rate 2.00 Capillary Refill : Less Than 3 Seconds General Appearance: Mild Distress, Moderate Distress Eyes: Bilateral Eye Normal Inspection HEENT: Normal ENT Inspection Neck: Normal Inspection, Non Tender Respiratory: Chest Non Tender, Lungs Clear, Normal Breath Sounds, No Accessory Muscle Use, No Respiratory Distress Cardiovascular: Regular Rate, Rhythm, No Edema, No Gallop, No JVD, No Murmur, Normal Peripheral Pulses Gastrointestinal: Tenderness (mild tenderness to palpation in the epigastric area) Extremity: Normal Inspection Neurologic/Psychiatric: Alert, Oriented x3, No Motor/Sensory Deficits, Normal Mood/Affect Skin: Normal Color, Warm/Dry Lymphatic: No Adenopathy Results Results/Procedures Lab Laboratory Tests 07/08/17 23:42 07/09/17 06:13 Short Stay Diagnosis Discharge Diagnosis-Short Stay Admission Diagnosis Recurrent pulmonary emboli Final Discharge Diagnosis Recurrent pulmonary emboli. 2.Doppler evidence of recurrent DVT at the right popliteal area. 3.hypertension. 4.recent hiatal hernia surgery with retching suggestive of stenosis Conclusion Plan Discharge on [facility]. They were informed that this would be lifelong at this point. They are to touch base with Dr. Luo as to the next step post hiatal hernia surgery Clinical Quality Measures AMI/AHF: ASA po Prior to arrival: Yes DVT/VTE Risk/Contraindication: Risk Factor Score Per Nursin RFS Level Per Nursing on Admit: 4+=Very High TEVIN RINCON MD Jul 09, 2017 13:53
[2017-07-09] MEDS ORDERED: APIX5TAB PO (14:04)
--- NOTE | 2017-07-09 14:06 | Discharge Instructions ---
Discharge Instructions Discharge Medications New, Converted or Re-Newed RX: Transmitted to Pharmacy Patient Instructions Patient Instructions: Medications as listed on the discharge sequence. You are Eliquis prescription has been electronically sent to [facility] Call Dr. Luo for instructions on next step relative to vomiting Activity & Diet Discharge Diet: Liquid Diet Activity as Tolerated: Yes EDDIE RINCON MD Jul 09, 2017 14:06
[2017-07-09] MEDS ORDERED: SIMvastatin 10 MG (ZOCOR) TAB PO SCH (21:00)
[2017-07-09] MEDS ORDERED: PANTOPRAZOLE 20 MG TABLET (PROTONIX) PO PRN (21:00)
[2017-07-09] MEDS ORDERED: MONTELUKAST 10 MG (SINGULAIR) TAB PO SCH (21:00)
[2017-07-10] MEDS ORDERED: LOSARTAN 50 MG (COZAAR) TAB PO SCH (09:00)
== END 2017-07-09 15:30 | disposition home or self-care (01) ==
LOC: EDUNIT# 22:45 → ER 22:47 → 4TH 07-09 01:20
PROVIDERS: ADMIT Internal Medicine; ATTEND Internal Medicine
DX: I26.99 Other pulmonary embolism without acute cor pulmonale (principal); I82.531 Chronic embolism and thrombosis of right popliteal vein; E78.00 Pure hypercholesterolemia, unspecified; I10 Essential (primary) hypertension; Z96.651 Presence of right artificial knee joint; Z96.641 Presence of right artificial hip joint; Z88.1 Allergy status to other antibiotic agents; Z88.5 Allergy status to narcotic agent; Z88.8 Allergy status to other drugs, medicaments and biological substances
CPT/HCPCS: 36415; 71045; 71275; 80053; 80061; 82150; 83690; 83735; 83874; 84484; 85025; 85379; 85610; 85730; 93005; 93041; 93970; 96360

== ENCOUNTER → 2017-07-29 | Outpatient (CLI) | payer MEDICARE, OTHER ==
[~2017-07-29] MED LIST changes: +LACT10SO PO; +LOSA50TA36 PO; +MAGN400T39 PO; +METO10TA3 PO; +SCOP1PAT17 TD
--- NOTE | 2017-07-29 13:17 | Diagnostic Imaging Report ---
INDICATION: Pain and swelling. Three views were obtained. FINDINGS: There are moderately severe degenerative change of the radiocarpal joint. There are also degenerative changes of the base of the first metacarpal. There is no fracture or dislocation. Soft tissues are unremarkable. IMPRESSION: Moderate degenerative changes as described. Dictated by: Dictated on workstation # [id number]
--- NOTE | 2017-07-29 14:01 | Diagnostic Imaging Report ---
INDICATION: Pain and swelling. 3 views of the left hand were obtained. FINDINGS: There are degenerative changes in the radiocarpal joint and base of first metacarpal. There is at least mild degenerative disease in the PIP joints particularly second and third fingers. There is no evidence of osteomyelitis. There is no fracture or dislocation. IMPRESSION: Degenerative changes as described without evidence of osteomyelitis or fracture. Dictated by: Dictated on workstation # [id number]
== END ==
LOC: RAD 12:09
PROVIDERS: ATTEND Internal Medicine
DX: M19.042 Primary osteoarthritis, left hand (principal)
CPT/HCPCS: 73110; 73130

== ENCOUNTER → 2017-10-25 | Outpatient (CLI) | payer MEDICARE, OTHER ==
[~2017-10-25] MED LIST changes: +CLIN150C17
--- NOTE | 2017-10-25 13:27 | Diagnostic Imaging Report ---
INDICATION: Routine screening. Comparison is made with prior study from 06/06/2016 and 05/26/2015. 2-D and 3-D bilateral screening mammography was performed with CAD. The current study was also evaluated with a Computer Aided Detection (CAD) system. FINDINGS: Scattered fibroglandular densities are identified bilaterally. Mild nodularity is seen bilaterally and appear stable and most consistent with benign etiology. No spiculated mass or malignant-appearing microcalcifications are seen. The axillae are unremarkable. IMPRESSION: No mammographic features suspicious for malignancy are identified. ACR BI-RADS Category 2: Benign findings. Result letter will be mailed to the patient. Note: At least 10% of breast cancer is not imaged by mammography. Dictated by: Dictated on workstation # [id number]
== END ==
LOC: RAD 10:00
PROVIDERS: ATTEND Nurse Practitioner Family
DX: Z12.31 Encounter for screening mammogram for malignant neoplasm of breast (principal)
CPT/HCPCS: 77067

== ENCOUNTER → 2017-10-28 | Outpatient (CLI) | payer MEDICARE, OTHER ==
--- NOTE | 2017-10-28 08:50 | Diagnostic Imaging Report ---
PROCEDURE: MRI lumbar spine. TECHNIQUE: Multiplanar, multisequence MRI of the lumbar spine was performed without contrast. INDICATION: Low back pain and left leg pain. COMPARISON: Comparison is made with prior MRI of the lumbar spine from 12/21/2014. FINDINGS: A left convexity lumbar scoliotic curvature is again noted. There is normal lordotic curvature. Minimal retrolisthesis of L2 on L3 and L3 on L4 is similar to prior exam. The vertebral body heights are maintained. No acute compression fracture is seen. No geographic marrow lesion is identified. There is degenerative disc disease at all levels with mild disc space narrowing and desiccation. There is multilevel facet arthropathy. The conus is unremarkable at the L1 level. L1-L2: No central canal or neuroforaminal stenosis is identified. L2-L3: There is a broad-based disc/osteophyte complex. This does narrow the lateral recesses bilaterally. Central canal is patent. No significant neuroforaminal stenosis is seen. L3-L4: Broad-based disc/osteophyte complex and ligamentous thickening is noted. Central canal remains patent. The lateral recesses are narrowed. There is also mild to moderate right neuroforaminal narrowing. Left neural foramen is patent. L4-L5: Mild ligamentous thickening is seen. There is some broad-based disc/osteophyte complex present. The central canal remains widely patent. There is bilateral lateral recess stenosis as well as significant left neuroforaminal stenosis and mild right neuroforaminal stenosis. L5-S1: There is a prominent wide based left posterolateral disc/osteophyte complex producing significant narrowing of the left lateral recess and obliteration of the left neural foramen. This is similar to prior exam. The right neural foramen is patent. Central canal is patent. Paraspinous tissues are unremarkable. IMPRESSION: Multilevel lumbar spondylosis and scoliosis. There is multilevel lateral recess and neuroforaminal stenosis described level by level above. This is most severe involving the left neural foramen at the L5-S1 level where there appears to be a large disc/osteophyte complex obliterating the left neural foramen. This is similar to the MRI from 12/21/2014. No acute compression fracture is detected. Dictated by: Dictated on workstation # [id number]
== END ==
LOC: RAD 07:47
PROVIDERS: ATTEND Internal Medicine
DX: M99.73 Connective tissue and disc stenosis of intervertebral foramina of lumbar region (principal); M51.36 Other intervertebral disc degeneration, lumbar region; M46.86 Other specified inflammatory spondylopathies, lumbar region; M41.86 Other forms of scoliosis, lumbar region
CPT/HCPCS: 72148

== ENCOUNTER 2017-10-30 14:33 | Emergency (ER) | payer MEDICARE, OTHER ==
[~2017-10-30] VITALS: Ht 149.9 cm; Wt 78.9 kg
[~2017-10-30 14:33] MED LIST changes: -CLIN150C17
--- NOTE | 2017-10-30 14:58 | ED General ---
General Stated Complaint: INFECTED TOOTH/BODY PAIN Source of Information: Patient Exam Limitations: No Limitations History of Present Illness Date Seen by Provider: Oct 30, 2017 Time Seen by Provider: 14:55 Initial Comments Patient is a 72-year-old female who presents to the emergency room accompanied by her with reports of infection. She did have a dental abscess and has been on clindamycin for 10 days prior to pulling the tooth yesterday and due to her history of a hip replacement the orthopedic surgeon continued the clindamycin for [address] Doyle pulled the tooth yesterday. She thinks that the infection has spread into her joints and settling in her right hip. She reports having history of pulmonary embolisms and had stopped her Eliquis prior to having the tooth pulled for 3 days and started it again this morning. She reports right axilla pain, right hip pain, and an episode of mid substernal chest pain that radiated to her back at 9:00 this morning lasting for one hour. She denies any shortness of breath, lightheadedness, or dizziness, and reports that the pain in her chest has not come back and only complains of the right axilla pain. Timing/Duration: 1-2 Days Associated Systoms: Chest Pain; No Cough, No Diaphoresis, No Fever/Chills, No Nausea/Vomiting, No Weakness Allergies and Home Medications Allergies Coded Allergies: cephalexin (Unverified Allergy, Unknown, 02/24/16) meperidine (Unverified Allergy, Unknown, 02/24/16) morphine (Unverified Allergy, Unknown, 02/24/16) pentazocine (Unverified Allergy, Unknown, 02/24/16) Home Medications Apixaban 5 Mg Tablet, 10 MG PO BID Review 2 TABLETS TWICE DAILY X 7 DAYS Then 1 tablet twice a day Prescribed by: EDDIE RINCON on 07/09/17 1404 Cholecalciferol (Vitamin D3) 3,000 Unit Tablet, 3,000 UNIT PO HS, (Reported) Cyanocobalamin (Vitamin B-12) 500 Mcg Tablet, 500 MCG PO HS, (Reported) Iron Polysaccharide Complex 150 Mg Capsule, 150 MG PO BID, (Reported) Lactulose 10 Gm/15 Ml Solution, 15 ML PO BID, (Reported) Losartan Potassium 50 Mg Tablet, 50 MG PO DAILY, (Reported) Magnesium Oxide 400 Mg Tablet, 800 MG PO HS, (Reported) Metoclopramide HCl 10 Mg Tablet, 10 MG PO TID, (Reported) Montelukast Sodium 10 Mg Tablet, 10 MG PO HS, (Reported) Omeprazole 20 Mg Capsule.dr, 20 MG PO HS PRN for HEARTBURN, (Reported) Scopolamine 1 Each Patch.td.3, 1 PATCH TD Q72H, (Reported) Simvastatin 10 Mg Tablet, 10 MG PO HS, (Reported) [Megacal] YOUNGLIVING CAP, 2 CAP PO HS, (Reported) Patient Home Medication List Home Medication List Reviewed: Yes Review of Systems Constitutional: see HPI; No chills, No diaphoresis, No fever, No malaise, No weakness EENTM: see HPI, dental problems; No ear pain, No blurred vision, No double vision Respiratory: see HPI; No cough, No dyspnea on exertion, No hemoptysis, No orthopnea, No phlegm, No short of breath, No wheezing Cardiovascular: see HPI, chest pain; No edema, No palpitations, No vascular heart diseas Gastrointestinal: see HPI; No abdominal pain, No constipation, No diarrhea, No nausea, No vomiting Genitourinary: see HPI; No decreased output, No discharge Musculoskeletal: see HPI, joint pain (right hip) Skin: see HPI; No change in color, No change in hair/nails Psychiatric/Neurological: See HPI; Denies Anxiety, Denies Depressed Hematologic/Lymphatic: See HPI; Denies Anemia, Denies Blood Clots Immunological/Allergic: see HPI; denies food allergy, denies grass allergy All Other Systems Reviewed Negative Unless Noted: Yes Past Cutxwjw-Uhphxn-Otehuu Hx Past Med/Social Hx: Reviewed Nursing Past Med/Soc Hx Patient Social History 2nd Hand Smoke Exposure: No Recent Foreign Travel: No Contact w/Someone Who Travel: No Recent Hopitalizations: No Immunizations Up To Date Date of Pneumonia Vaccine: May 01, 2016 Seasonal Allergies Seasonal Allergies: No Past Medical History Surgeries: Yes (R Total hip, Right total knee, right foot, hiatal hernia) Appendectomy, Ear Surgery, Eye Surgery, Gallbladder, Hysterectomy, Joint Replacement Respiratory: Yes Pulmonary Embolism Cardiac: Yes Deep Vein Thrombosis, Heart Murmur, High Cholesterol, Hypertension Neurological: No 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 Sexually Transmitted Disease: No HIV/AIDS: No Genitourinary: No Gastrointestinal: Yes C-Diff, Hiatal Hernia Musculoskeletal: Yes (spinal stenosis) Osteoporosis, Scoliosis Endocrine: No HEENT: Yes Cataract Cancer: No Psychosocial: No Integumentary: No Blood Disorders: Yes (anemia) Adverse Reaction/Blood Tranf: No Family Medical History Reviewed Nursing Family Hx Cardiovascular disease 19 FATHER 19 MOTHER G8 SISTER FH: CHF (congestive heart failure) 19 FATHER 19 MOTHER FH: COPD (chronic obstructive pulmonary disease) 19 MOTHER FH: cancer G8 BROTHER G8 SISTER FH: liver disease G8 SISTER Kidney disease G8 SISTER No Pertinent Family Hx Physical Exam Vital Signs Capillary Refill : General Appearance: No Apparent Distress, WD/WN HEENT: PERRL/EOMI, TMs Normal, Normal ENT Inspection, Pharynx Normal Neck: Full Range of Motion, Normal Inspection, Non Tender, Supple Respiratory: Lungs Clear, Normal Breath Sounds, No Accessory Muscle Use, No Respiratory Distress, Other (the patient does have some mild chest tenderness in the right upper chest that radiates to the right axilla. The right axilla is also tender. No lymphadenopathy noted.) Cardiovascular: Regular Rate, Rhythm, No Edema, No Gallop, No JVD, No Murmur, Normal Peripheral Pulses Gastrointestinal: Normal Bowel Sounds, No Organomegaly, No Pulsatile Mass, Non Tender, Soft Back: Normal Inspection, No CVA Tenderness, No Vertebral Tenderness Extremity: Normal Capillary Refill, Normal Inspection, Normal Range of Motion, Non Tender, No Calf Tenderness Neurologic/Psychiatric: Alert, Oriented x3, Normal Mood/Affect Skin: Normal Color, Warm/Dry Lymphatic: No Adenopathy Focused Exam Lactate Level Lactic Acid Level Progress/Results/Core Measures Suspected Sepsis SIRS Temperature: Pulse: Respiratory Rate: Blood Pressure / Mean: Results/Orders Lab Results My Orders Vital Signs/I&O Capillary Refill : Progress Note : Time: 16:20 Progress Note I spoke to Dr. Evans regarding the patient's chest pain and recent dental procedures and restarting her Eliquis and he recommended keeping the patient for repeat troponin 4 hours after. I went to discuss this with the patient and she reports that they have October activities that they would like to make it to and do not want to stay. I explained to them that they would be having to sign out AGAINST MEDICAL ADVICE and she agrees to signing out AGAINST MEDICAL ADVICE. I informed them of the risk of leaving and the benefits of staying and she agrees that she will return to the nearest emergency room should her symptoms return. ECG EKG : EKG Time: 15:10 Rate: 67 Rhythm: Normal Sinus Intervals: Normal ECG Comparisson: Unchanged Diagnostic Imaging Diagonstic Imaging: Xray Plain Films/CT/US/NM/MRI: chest Comments NAME: TINY PÉREZ [facility] REC#: [id number] PT STATUS: DEP ER : 1945 PHYSICIAN: JOSEFA BRAR ADMIT DATE: 10/30/17/ER Signed Date of Exam: 10/30/17 CHEST 1 VIEW, AP/PA ONLY INDICATION: Chest pain x 1 day. TECHNIQUE: Single view chest, 3:19 p.m. CORRELATION STUDY: 07/08/2017. FINDINGS: Heart size is mildly enlarged and stable. Vasculature is overall within normal limits. Suggestion of minimal atelectasis, or less likely infiltrate, in the left lung base. IMPRESSION: Cardiac enlargement without overt failure. Minimal atelectasis or infiltrate at the left lung base. Dictated by: Dictated on workstation # [id number] Dict: 10/30/17 1535 Trans: 10/30/17 1657 Interpreted by: MICHAEL GARCIA DO Electronically signed by: MICHAEL GARCIA DO 10/30/17 1657 Reviewed: Reviewed by Me Departure Impression Primary Impression: Left against medical advice Disposition: 07 AGAINST MEDICAL ADVICE Condition: Stable/Unchanged Departure-Patient Inst. Referrals: FELIZ GUY DO (PCP/Family) Primary Care Physician Images Mouth/Nose 1 - Tenderness Progress The patient is tender in the image that I have documented on. This is where she had her tooth removed but there is no evidence of abscess. JOSEFA BRAR Oct 30, 2017 14:58
[2017-10-30 15:22] LABS: BASOPHILS % (AUTO) 0 % (0-10); EOSINOPHILS % (AUTO) 0 % (0-10); HEMATOCRIT 43 % (35-52); HEMOGLOBIN 14.4 G/DL (11.5-16.0); LYMPHOCYTES # (AUTO) 1.4 X 10^3 (1.0-4.0); LYMPHOCYTES % (AUTO) 20 % (12-44); MEAN CORPUSCULAR HEMOGLOBIN 30 PG (25-34); MEAN CORPUSCULAR HGB CONC 34 G/DL (32-36); MEAN CORPUSCULAR VOLUME 90 FL (80-99); MEAN PLATELET VOLUME 8.6 FL (7.4-10.4); MONOCYTES # (AUTO) 0.6 X 10^3 (0.0-1.0); MONOCYTES % (AUTO) 8 % (0-12); NEUTROPHILS # (AUTO) 4.9 X 10^3 (1.8-7.8); NEUTROPHILS % (AUTO) 71 % (42-75); PLATELET COUNT 303 10^3/uL (130-400); RED BLOOD COUNT 4.73 10^6/uL (4.35-5.85); RED CELL DISTRIBUTION WIDTH 14.9 % (10.0-14.5); WHITE BLOOD COUNT 6.8 10^3/uL (4.3-11.0)
[2017-10-30] MEDS ORDERED: CLIN150C17 (15:26)
[2017-10-30 15:38] LABS: FIBRIN DEGRADATION PRODUCTS 0.46 UG/ML (0.00-0.49); INR 1.1 (0.8-1.4); PROTHROMBIN TIME PATIENT 13.9 SEC (12.2-14.7)
--- NOTE | 2017-10-30 15:42 | Diagnostic Imaging Report ---
INDICATION: Chest pain x 1 day. TECHNIQUE: Single view chest, 3:19 p.m. CORRELATION STUDY: 07/08/2017. FINDINGS: Heart size is mildly enlarged and stable. Vasculature is overall within normal limits. Suggestion of minimal atelectasis, or less likely infiltrate, in the left lung base. IMPRESSION: Cardiac enlargement without overt failure. Minimal atelectasis or infiltrate at the left lung base. Dictated by: Dictated on workstation # [id number]
[2017-10-30 15:44] LABS: ALANINE AMINOTRANSFERASE 13 U/L (0-55); ALBUMIN 4.1 GM/DL (3.2-4.5); ALKALINE PHOSPHATASE 58 U/L (40-136); BILIRUBIN,TOTAL 0.6 MG/DL (0.1-1.0); BUN/CREATININE RATIO 16; CALCIUM 9.7 MG/DL (8.5-10.1); CARBON DIOXIDE 20 MMOL/L (21-32); CHLORIDE 107 MMOL/L (98-107); CREATININE SERUM 1.09 MG/DL (0.60-1.30); GFR ESTIMATED 49; GLUCOSE 110 MG/DL (70-105); POTASSIUM 4.1 MMOL/L (3.6-5.0); SODIUM 139 MMOL/L (135-145); TOTAL PROTEIN 6.4 GM/DL (6.4-8.2)
--- OUTSIDE RECORDS SUMMARY | 2017-10-30 15:54 | XMS REPORT | Clinical Summary ---
Author Author [facility] Organization [facility] Address Unknown Phone Unavailable Care Team Providers Care Helper Maintenance Cleaning Name Role Phone Josué Bertrand MD Unavailable Aquilino Rey MD Unavailable Nilesh Rubin MD Unavailable Hetal Duong Unavailable Leonel Medrano MD Unavailable No Pcp, Na PCP Unavailable Source Comments Some departments are not documenting in the electronic medical record. If you do not see the information that you expected, contact Release of Information in the Health Information Management department at [phone] for further assistance in locating additional records.[facility] Allergies Active Allergy Reactions Severity [...] (STOOL Take by mouth. Active SOFTENER PO) metroNIDAZOLE (METROGEL) Apply to rash on face 45 g 11 08/28/19 Active 1 % topical twice daily as needed 18 gelIndications: Rosacea Active Problems Problem Noted Date Dysfunction of both eustachian tubes 06/07/2015 Chronic suppurative otitis media of left ear 05/24/2015 Overview: Ear drum cleft. Lots of valsalva requested Encounters Date Type Specialty Care Team Description 2017 Office Visit Dermatology SHAUNA Rod (actinic keratosis ) MD Mitch (Primary Dx); History of squamous cell carcinoma; Multiple melanocytic nevi; Cyst of skin; Rosacea from Last 3 Months Family History Medical History Relation Name Comments Basal Cell Carcinoma Brother Squamous Cell Carcinoma Brother Basal Cell Carcinoma Father High Cholesterol Father Hypertension Father Squamous Cell Carcinoma Father Basal Cell Carcinoma Mother High Cholesterol Mother Hypertension Mother Squamous Cell Carcinoma Mother Relation Name Status Comments Brother Father Mother Social History Tobacco Use Types Packs/Day Years Used Date Never Smoker Smokeless Tobacco: Never Used Alcohol Use Drinks/Week oz/Week Comments No 0 Standard 0.0 drinks or equivalent Sex Assigned at Date Recorded Not on file Last Filed Vital Signs Vital Sign Reading Time Taken Blood Pressure 123/71 06/26/2016 4:03 PM KAI WHAKARURUHAU Pulse 73 06/26/2016 4:03 PM KAI WHAKARURUHAU Temperature - - Respiratory Rate - - Oxygen Saturation - - Inhaled Oxygen - - Concentration Weight 78 kg (172 lb) 2017 10:32 AM CDT Height 149.9 cm (4' 11") 2017 10:32 AM CDT Body Mass Index 34.74 2017 10:32 AM CDT Plan of Treatment Health Maintenance Due Date Last Done Comments HEPATITIS C SCREENING 1945 PHYSICAL (COMPREHENSIVE) 1952 EXAM PERTUSSIS VACCINE 1956 TETANUS VACCINE 1962 BREAST CANCER SCREENING 1985 COLORECTAL CANCER 08/28/1995 SCREENING SHINGLES RECOMBINANT 08/28/1995 VACCINE (1 of 2) OSTEOPOROSIS SCREENING 2010 PNEUMONIA (PCV13/PPSV23) 2010 VACCINES (1 of 2 - PCV13) INFLUENZA VACCINE 01/27/2018 02/15/1995, 02/16/1994 Results Not on filefrom Last 3 Months
--- OUTSIDE RECORDS SUMMARY | 2017-10-30 15:54 | XMS REPORT | Encounter Summary ---
Author Author [facility] Organization [facility] Address Unknown Phone Unavailable Care Team Providers Care Print Line Operator Name Role Phone Josué Bertrand MD Unavailable Aquilino Rey MD Unavailable Nilesh Rubin MD Unavailable Hetal Duong Unavailable Leonel Medrano MD Unavailable No Pcp, Na PCP Unavailable Reason for Visit * Reason Comments Skin Problem Encounter Details Date Type Department Care Team Description 2017 Office Visit [facility] SHAUNA Rod (actinic keratosis) Physicians - Internal MD Mitch (Primary Dx); Medicine [address] History of squamous cell [address] [place] [address] carcinoma; [address] MED Multiple melanocytic OFFICE BLDG nevi; [place], [place] Cyst of skin; [id number] Rosacea [phone] Social History Tobacco Use Types Packs/Day Years Used Date Never Smoker Smokeless Tobacco: Never Used Alcohol Use Drinks/Week oz/Week Comments No 0 Standard 0.0 drinks or equivalent Sex Assigned at Date Recorded Not on file as of this encounter Last Filed Vital Signs Vital Sign Reading Time Taken Blood Pressure - - Pulse - - Temperature - - Respiratory Rate - - Oxygen Saturation - - Inhaled Oxygen - - Concentration Weight 78 kg (172 lb) 2017 10:32 AM CDT Height 149.9 cm (4' 11") 2017 10:32 AM CDT Body Mass Index 34.74 2017 10:32 AM CDT in this encounter Progress Notes * Josué Bertrand MD - 2017 10:30 AM CDT Formatting of this note may be different from the original. ATTESTATION I personally performed the north portions of the E/M visit, discussed case with resident and concur with resident documentation of history, physical exam, assessment, and treatment plan unless otherwise noted. I performed cryotherapy to 1 AK today .Patient informed that a blistering reaction is to be expected and that a hypopigmented scar may result. Patient tolerated the procedure well with no complications. Staff name: Josué Bertrand MD Date: 2017 * Mitch Rod MD - 2017 10:30 AM CDT Formatting of this note may be different from the original. Subjective: History of Present Illness Ana Laura Agudelo is a 72 y.o. female. 11/2015 1. History of squamous cell carcinoma - R upper arm in ~2000 s/p excision 2. History of actinic keratoses - Treated with LN2 in the past 3. Multiple melanocytic nevi - Denies any significant changes in the size, shape or color of any of her nevi - None of her nevi are itching, bleeding or burning 4. New bump on the left cheek - Present for the past 3 weeks, growing 5. 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 Gastrointestinal: Negative for diarrhea, nausea and vomiting. Skin: Negative for color change, pallor, rash and wound. Objective: aspirin EC 81 mg tablet Take 81 mg by mouth daily. CALCIUM CARBONATE/VITAMIN D3 (VITAMIN D-3 PO) Take by mouth. calcium Administer through vein. cholecalciferol (VITAMIN D-3) 1,000 units tablet Take 1,000 Units by mouth daily. CYANOCOBALAMIN (VITAMIN B-12) (VITAMIN B12 PO) Take by mouth. DOCUSATE CALCIUM (STOOL SOFTENER PO) Take by mouth. estradiol (ESTRACE) 0.01 % (0.1 mg/g) vaginal cream Take by mouth daily. Indications: 0.5 IRON (FERROUS SULFATE) PO Take by mouth. ketoconazole (NIZORAL) 2 % topical shampoo APPLY TO AFFECTED AREA THREE TIMES A WEEK. MASSAGE INTO SCALP THEN WASH OUT AFTER LEFT IN FOR [address](+) (PRILOSEC) 20 mg capsule Take 20 mg by mouth daily. SIMVASTATIN PO Take by mouth. Vitals: 08/27/17 1032 Weight: 78 kg (172 lb) Height: 149.9 cm (59") Body mass index is 34.74 kg/m. Physical Exam Areas Examined (all normal unless noted below): Head/Face Neck Chest/breasts/axillae Back Abdomen Buttocks R upper ext L upper ext R lower ext L lower ext Pertinent findings include: Scar at site of prior squamous cell carcinoma is noted with no evidence of recurrence. Multiple brown and streeter evenly pigmented macules are distributed over the head, neck, trunk, arms and legs. All have symmetric similar dermascopic findings with primarily globular and reticular patterns. Red pinpoint papules and pustules and telangiectasias on the right cheek Skin colored subcutaneous nodule on the left cheek 1 erythematous scaly papule noted on the right cheek x 1 Assessment and Plan: 1. History of SCC - No evidence of recurrence - Unremarkable scar at site of prior basal cell carcinoma 2. Multiple melanocytic nevi - Will continue to monitor clinically - Encouraged her to continue to monitor her nevi at home and return to clinic for any new, changing or symptomatic lesions - Reviewed and encouraged sunprotection 3. Likely cyst of the left cheek - Reviewed diagnosis and treatment options with patient including watchful waiting vs excision - Patient will continue to monitor at this time 4. Rosacea - Reviewed diagnosis and treatment with patient - Start metronidazole gel to the face twice daily as needed 5. Actinic keratoses - Discussed premalignant nature of lesions - LN2 to 1 lesion today RTC 1 year, sooner as needed in this encounter Procedure Notes * Mitch Rod MD - 2017 10:30 AM CDT Associated Order(s): SKIN LESION DESTRUCTION Procedure(s): ID DESTRUCTION PREMALIGNANT LESION 1ST Pre-Procedure Diagnose(s): AK (actinic keratosis) Liquid Nitrogen Procedure Note Risk and benefits of the above procedure including pain, dyspigmentation, scar, infection, recurrence were discussed with the patient (or legal guardian) in detail, who afterwards decided to proceed with the procedure. Verbal informed consent given Diagnosis: AK Body site: Right cheek Number of lesions: 1 Cycle duration: 10 sec Number or cycles: 2 Wound care instructions given: Yes Complications: None Tolerated well: Yes Ambulated from room: Yes Duration of procedure: > 5min in this encounter Plan of Treatment Name Priority Associated Diagnoses Order Schedule SKIN LESION DESTRUCTION Routine AK (actinic keratosis) Ordered: 2017 as of this encounter Visit Diagnoses Diagnosis AK (actinic keratosis) - Primary Actinic keratosis History of squamous cell carcinoma Personal history of malignant neoplasm of other site Multiple melanocytic nevi Benign neoplasm of skin, site unspecified Cyst of skin Sebaceous cyst Rosacea
[2017-10-30 16:30] VITALS: BP 148/89
== END 2017-10-30 16:30 | disposition left against medical advice (07) ==
LOC: EDUNIT# 14:33 → ER 14:34
DX: K04.7 Periapical abscess without sinus (principal); D64.9 Anemia, unspecified; E78.00 Pure hypercholesterolemia, unspecified; I10 Essential (primary) hypertension; Z90.49 Acquired absence of other specified parts of digestive tract; Z90.710 Acquired absence of both cervix and uterus; Z96.651 Presence of right artificial knee joint; Z96.641 Presence of right artificial hip joint; Z86.711 Personal history of pulmonary embolism; Z86.718 Personal history of other venous thrombosis and embolism; Z88.5 Allergy status to narcotic agent; Z88.6 Allergy status to analgesic agent; Z88.1 Allergy status to other antibiotic agents
CPT/HCPCS: 36415; 71045; 80053; 83605; 84484; 85025; 85379; 85610; 85730; 86141; 87040; 93005

== ENCOUNTER 2018-01-31 22:14 | Emergency (ER) | payer MEDICARE, OTHER ==
[~2018-01-31] VITALS: Ht 149.9 cm; Wt 78.9 kg
[~2018-01-31 22:14] MED LIST changes: +CLIN150C17; +HYDR-4226 PO; -HYDR-757 PO; -LOSA25TA21 PO; +LOSA25TA6 PO; -LOSA50TA36 PO; +LOSA50TA7 PO
--- OUTSIDE RECORDS SUMMARY | 2018-01-31 22:18 | XMS REPORT | Clinical Summary ---
Author Author [facility] Organization [facility] Address Unknown Phone Unavailable Care Team Providers Care Physical Therapy Teacher Name Role Phone Josué Bertrand MD Unavailable Aquilino Rey MD Unavailable Nilesh Rubin MD Unavailable Hetal Duong Unavailable Leonel Medrano MD Unavailable No Pcp, Na PCP Unavailable Source Comments Some departments are not documenting in the electronic medical record. 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
--- OUTSIDE RECORDS SUMMARY | 2018-01-31 22:19 | XMS REPORT | Continuity of Care Document ---
Author Author [facility] Organization [facility] Address Unknown Phone Unavailable Allergies Active Description Code Type Severity Reaction Onset Reported/Identified Relationship to Patient Clinical Status Yes cephalexin [id number] Drug Allergy Unknown N/A 02/24/2016 Yes meperidine [id number] Drug Allergy Unknown N/A 02/24/2016 Yes morphine [id number] Drug Allergy Unknown N/A 02/24/2016 Yes pentazocine [id number] Drug Allergy Unknown N/A 02/24/2016 Medications There [...] GUY DO Ot V76.12 05/26/2015 CAMI ABARCA EMERGENCY ROOM PHYSICIAN Ot 553.3 05/26/2015 CAMI ABARCA EMERGENCY ROOM PHYSICIAN Ot 786.2 05/26/2015 CAMI GUY ELECTRONIC DEVELOPMENT TECHNICIAN Ot 729.5 05/26/2015 CAMI GUY ELECTRONIC DEVELOPMENT TECHNICIAN Ot V12.51 05/26/2015 FELIZ GUY DO Ot [...] K44.9 DIAPHRAGMATIC HERNIA WITHOUT OBSTRUCTION 03/02/2016 MARI DENT MD Ot 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 OF TERRI 04/05/2016 RIMA CAMI C EMERGENCY ROOM PHYSICIAN Ot 553.3 DIAPHRAGMATIC HERNIA 04/05/2016 RIMA CAMI C EMERGENCY ROOM PHYSICIAN Ot 786.2 COUGH 04/05/2016 CAMI GUY ELECTRONIC DEVELOPMENT TECHNICIAN Ot 729.5 PAIN IN LIMB 04/05/2016 CAMI GUY ELECTRONIC DEVELOPMENT TECHNICIAN Ot V12.51 HX-VENOUS THROMBOSIS EMBOLISM 04/05/2016 FELIZ [...] MAMMOGRAM FOR MALIGNANT NE 06/07/2016 CAMI GUY ELECTRONIC DEVELOPMENT TECHNICIAN Ot Z12.31 ENCNTR SCREEN MAMMOGRAM FOR MALIGNANT [...] I10 ESSENTIAL (PRIMARY) HYPERTENSION 01/14/2017 MARI DENT MD Ot I26.99 OTHER PULMONARY EMBOLISM WITHOUT ACUTE C 01/14/2017 MARI DENT MD Ot K21.9 GASTRO-ESOPHAGEAL REFLUX DISEASE WITHOUT 01/14/2017 MARI DENT MD Ot K44.9 DIAPHRAGMATIC HERNIA WITHOUT OBSTRUCTION 01/14/2017 MARI DENT MD Ot M66.0 RUPTURE OF POPLITEAL CYST 01/14/2017 MARI DENT MD Ot Z79.899 OTHER [facility] (CURRENT) DRUG THERAPY 01/14/2017 MARI DENT MD Ot Z86.718 PERSONAL HISTORY OF OTHER VENOUS THROMBO 01/14/2017 MARI DENT MD Ot Z96.651 PRESENCE OF RIGHT ARTIFICIAL KNEE JOINT 05/09/2017 FELIZ GUY DO Ot M71.22 SYNOVIAL CYST OF POPLITEAL SPACE [MOHIT] 05/28/2017 FELIZ GUY DO Ot M71.22 SYNOVIAL CYST OF POPLITEAL SPACE [MOHIT] 07/09/2017 EDDIE RINCON MD Ot E78.00 PURE HYPERCHOLESTEROLEMIA, UNSPECIFIED 07/09/2017 EDDIE RINCON MD, Ot I10 ESSENTIAL (PRIMARY) HYPERTENSION 07/09/2017 ODGERS MD, EDDIE K Ot I26.99 OTHER PULMONARY EMBOLISM WITHOUT ACUTE C 07/09/2017 EDDIE RINCON MD Ot 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 07/09/2017 EDDIE RINCON MD Ot Z88.1 ALLERGY STATUS TO OTHER ANTIBIOTIC AGENT 07/09/2017 EDDIE RINCON MD Ot Z88.5 ALLERGY STATUS TO NARCOTIC AGENT STATUS 07/09/2017 EDDIE RINCON MD Ot Z88.8 ALLERGY STATUS TO OTH DRUG/MEDS/BIOL SUB 07/09/2017 EDDIE RINCON MD Ot Z96.641 PRESENCE OF RIGHT ARTIFICIAL HIP JOINT 07/09/2017 EDDIE RINCON MD Ot Z96.651 PRESENCE OF RIGHT ARTIFICIAL KNEE JOINT 07/09/2017 EDDIE RINCON MD Ot E78.00 PURE HYPERCHOLESTEROLEMIA, UNSPECIFIED 07/09/2017 EDDIE RINCON MD Ot I10 ESSENTIAL (PRIMARY) HYPERTENSION 07/09/2017 EDDIE RINCON MD Ot I26.99 OTHER PULMONARY EMBOLISM WITHOUT ACUTE C 07/09/2017 EDDIE RINCON MD Ot 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 07/09/2017 EDDIE RINCON MD Ot Z88.1 ALLERGY STATUS TO OTHER ANTIBIOTIC AGENT 07/09/2017 EDDIE RINCON MD Ot Z88.5 ALLERGY STATUS TO NARCOTIC AGENT STATUS 07/09/2017 EDDIE RINCON MD Ot Z88.8 ALLERGY STATUS TO OTH DRUG/MEDS/BIOL SUB 07/09/2017 EDDIE RINCON MD Ot Z96.641 PRESENCE OF RIGHT ARTIFICIAL HIP JOINT 07/09/2017 EDDIE RINCON MD Ot Z96.651 PRESENCE OF RIGHT ARTIFICIAL KNEE JOINT 07/30/2017 FELIZ GUY DO Ot M19.042 PRIMARY OSTEOARTHRITIS, LEFT HAND 08/21/2017 FELIZ GUY DO Ot M19.042 PRIMARY OSTEOARTHRITIS, LEFT HAND 10/29/2017 FELIZ GUY DO Ot M41.86 OTHER FORMS OF SCOLIOSIS, LUMBAR REGION 10/29/2017 FELIZ GUY DO Ot M46.86 OTHER SPECIFIED INFLAMMATORY SPONDYLOPAT 10/29/2017 FELIZ GUY DO Ot M51.36 OTHER INTERVERTEBRAL DISC DEGENERATION, 10/29/2017 FELIZ GUY DO Ot M99.73 CONN TISS AND DISC STENOS OF INTVRT FORA 10/30/2017 JOSEFA BRAR Ot D64.9 ANEMIA, UNSPECIFIED 10/30/2017 JOSEFA BRAR Ot E78.00 PURE HYPERCHOLESTEROLEMIA, UNSPECIFIED 10/30/2017 JOSEFA BRAR Ot I10 ESSENTIAL (PRIMARY) HYPERTENSION 10/30/2017 JOSEFA BRAR Ot K04.7 PERIAPICAL ABSCESS WITHOUT SINUS 10/30/2017 JOSEFA BRAR Ot Z86.711 PERSONAL HISTORY OF PULMONARY EMBOLISM 10/30/2017 JOSEFA BRAR Ot Z86.718 PERSONAL HISTORY OF OTHER VENOUS THROMBO 10/30/2017 JOSEFA BRAR Ot Z88.1 ALLERGY STATUS TO OTHER ANTIBIOTIC AGENT 10/30/2017 LUCAS BRARIS Ot Z88.5 ALLERGY STATUS TO NARCOTIC AGENT STATUS 10/30/2017 LUCAS BRARIS Ot Z88.6 ALLERGY STATUS TO ANALGESIC AGENT STATUS 10/30/2017 LUCAS BRARIS Ot Z90.49 ACQUIRED ABSENCE OF OTHER SPECIFIED PART 10/30/2017 JOSEFA BRAR Ot Z90.710 ACQUIRED ABSENCE OF BOTH CERVIX AND UTER 10/30/2017 LUCAS BRARIS Ot Z96.641 PRESENCE OF RIGHT ARTIFICIAL HIP JOINT 10/30/2017 JOSEFA BRAR Ot Z96.651 PRESENCE OF RIGHT ARTIFICIAL KNEE JOINT 10/31/2017 JOSEFA BRAR Ot D64.9 ANEMIA, UNSPECIFIED 10/31/2017 JOSEFA BRAR Ot E78.00 PURE HYPERCHOLESTEROLEMIA, UNSPECIFIED 10/31/2017 JOSEFA BRAR Ot I10 ESSENTIAL (PRIMARY) HYPERTENSION 10/31/2017 JOSEFA BRAR Ot K04.7 PERIAPICAL ABSCESS WITHOUT SINUS 10/31/2017 JOSEFA BRAR Ot Z86.711 PERSONAL HISTORY OF PULMONARY EMBOLISM 10/31/2017 JOSEFA BRAR Ot Z86.718 PERSONAL HISTORY OF OTHER VENOUS THROMBO 10/31/2017 JOSEFA BRAR Ot Z88.1 ALLERGY STATUS TO OTHER ANTIBIOTIC AGENT 10/31/2017 LUCAS BRARIS Ot Z88.5 ALLERGY STATUS TO NARCOTIC AGENT STATUS 10/31/2017 LUCAS BRARIS Ot Z88.6 ALLERGY STATUS TO ANALGESIC AGENT STATUS 10/31/2017 LUCAS BRARIS Ot Z90.49 ACQUIRED ABSENCE OF OTHER SPECIFIED PART 10/31/2017 LUCAS BRARIS Ot Z90.710 ACQUIRED ABSENCE OF BOTH CERVIX AND UTER 10/31/2017 LUCAS BRARIS Ot Z96.641 PRESENCE OF RIGHT ARTIFICIAL HIP JOINT 10/31/2017 SANDYPAUL JOSEFA Ot Z96.651 PRESENCE OF RIGHT ARTIFICIAL KNEE JOINT 11/15/2017 GUYCAMI HAREP Ot Z12.31 ENCNTR SCREEN MAMMOGRAM FOR MALIGNANT NE 11/19/2017 FELIZ GUY DO Ot M41.86 OTHER FORMS OF SCOLIOSIS, LUMBAR REGION 11/19/2017 FELIZ GUY DO Ot M46.86 OTHER SPECIFIED INFLAMMATORY SPONDYLOPAT 11/19/2017 FELIZ GUY DO Ot M51.36 OTHER INTERVERTEBRAL DISC DEGENERATION, 11/19/2017 FELIZ GUY DO Ot M99.73 CONN TISS AND DISC STENOS OF INTVRT FORA Procedures There is no data. Results Test Result Range RED CELLS LEUKO REDUCED AS1 - 04/05/16 10:10 RED CELLS LEUKO REDUCED AS1 TRANSFUSED 04/05/16 1121 [facility] Blood type T Indirect antibody screen panel - 04/05/16 10:10 ABO+Rh group AP NRG Transfusion band number [id number] NRG Blood group antibody screen NEGATIVE NRG Complete [...] i.cardiac measurement (mass/volume) < ng/ mL <0.30 Complete blood count (CBC) with automated white blood cell (WBC) differential - 07/08/17 23:42 Blood leukocytes automated count (number/volume) 7.9 10*3/uL 4.3-11.0 Blood erythrocytes automated count (number/volume) 5.31 10*6/uL 4.35-5.85 Venous blood hemoglobin measurement (mass/volume) 14.6 g/dL 11.5-16.0 Blood hematocrit (volume fraction) 45 % 35-52 Automated erythrocyte mean corpuscular volume 84 [foz_us] 80-99 Automated erythrocyte mean corpuscular hemoglobin (mass per erythrocyte) 28 pg 25-34 Automated erythrocyte mean corpuscular hemoglobin concentration measurement ( mass/volume) 33 g/dL 32-36 Automated erythrocyte distribution width ratio 16.7 % 10.0-14.5 Automated blood platelet count (count/volume) 374 10*3/uL 130-400 Automated blood platelet mean volume measurement 8.8 [foz_us] 7.4-10.4 Automated blood neutrophils/100 leukocytes 71 % 42-75 Automated blood lymphocytes/100 leukocytes 17 % 12-44 Blood monocytes/100 leukocytes 10 % 0-12 Automated blood eosinophils/100 leukocytes 2 % 0-10 Automated blood basophils/100 leukocytes 0 % 0-10 Blood neutrophils automated count (number/volume) 5.6 10*3 1.8-7.8 Blood lymphocytes automated count (number/volume) 1.3 10*3 1.0-4.0 Blood monocytes automated count (number/volume) 0.8 10*3 0.0-1.0 Automated eosinophil count 0.1 10*3/uL 0.0-0.3 Automated blood basophil count (count/volume) 0.0 10*3/uL 0.0-0.1 PT panel in platelet poor plasma by coagulation assay - 07/08/17 23:42 Prothrombin time (PT) in platelet poor plasma by coagulation assay 13.8 s 12.2-14.7 INR in platelet poor plasma or blood by coagulation assay 1.1 0.8-1.4 Activated partial thromboplastin time (aPTT) in platelet poor plasma bycoagulation assay - 07/08/17 23:42 Activated partial thromboplastin time (aPTT) in platelet poor plasma bycoagulation assay 26 s 24-35 Comprehensive metabolic panel - 07/08/17 23:42 Serum or plasma sodium measurement (moles/volume) 136 mmol/L 135-145 Serum or plasma potassium measurement (moles/volume) 3.3 mmol/L 3.6-5.0 Serum or plasma chloride measurement (moles/volume) 104 mmol/L 98-107 Carbon dioxide 19 mmol/L 21-32 Serum or plasma anion gap determination (moles/volume) 13 mmol/L 5-14 Serum or plasma urea nitrogen measurement (mass/volume) 9 mg/dL 7-18 Serum or plasma creatinine measurement (mass/volume) 0.83 mg/dL 0.60-1.30 Serum or plasma urea nitrogen/creatinine mass ratio 11 NRG Serum or plasma creatinine measurement with calculation of estimated glomerular filtration rate > NRG Serum or plasma glucose measurement (mass/volume) 136 mg/dL 70-105 Serum or plasma calcium measurement (mass/volume) 10.0 mg/dL 8.5-10.1 Serum or plasma total bilirubin measurement (mass/volume) 0.5 mg/dL 0.1-1.0 Serum or plasma alkaline phosphatase measurement (enzymatic activity/volume) 67 U/L 40-136 Serum or plasma aspartate aminotransferase measurement (enzymatic activity/ volume) 15 U/L 5-34 Serum or plasma alanine aminotransferase measurement (enzymatic activity/volume ) 13 U/L 0-55 Serum or plasma protein measurement (mass/volume) 6.6 g/dL 6.4-8.2 Serum or plasma albumin measurement (mass/volume) 3.8 g/dL 3.2-4.5 Magnesium - 07/08/17 23:42 Magnesium 2.0 mg/dL 1.8-2.4 Serum or plasma troponin i.cardiac measurement (mass/volume) - 07/08/17 23:42 Serum or plasma troponin i.cardiac measurement (mass/volume) < ng/ mL <0.30 Myoglobin, serum - 07/08/17 23:42 Myoglobin, serum 39.7 ng/mL 10.0-92.0 Serum or plasma amylase measurement (enzymatic activity/volume) - 07/08/17 23: 42 Serum or plasma amylase measurement (enzymatic activity/volume) 72 U /L 25-125 Fibrin D-dimer FEU measurement in platelet poor plasma (mass/volume) - 23:42 Fibrin D-dimer FEU measurement in platelet poor plasma (mass/volume) 10.08 ug/mL 0.00-0.49 Lipase - 07/08/17 23:42 Lipase 24 U/L 8-78 Complete blood count (CBC) with automated white blood cell (WBC) differential - 07/09/17 06:13 Blood leukocytes automated count (number/volume) 6.4 10*3/uL 4.3-11.0 Blood erythrocytes automated count (number/volume) 4.90 10*6/uL 4.35-5.85 Venous blood hemoglobin measurement (mass/volume) 13.5 g/dL 11.5-16.0 Blood hematocrit (volume fraction) 41 % 35-52 Automated erythrocyte mean corpuscular volume 83 [foz_us] 80-99 Automated erythrocyte mean corpuscular hemoglobin (mass per erythrocyte) 28 pg 25-34 Automated erythrocyte mean corpuscular hemoglobin concentration measurement ( mass/volume) 33 g/dL 32-36 Automated erythrocyte distribution width ratio 16.7 % 10.0-14.5 Automated blood platelet count (count/volume) 364 10*3/uL 130-400 Automated blood platelet mean volume measurement 9.1 [foz_us] 7.4-10.4 Automated blood neutrophils/100 leukocytes 74 % 42-75 Automated blood lymphocytes/100 leukocytes 15 % 12-44 Blood monocytes/100 leukocytes 10 % 0-12 Automated blood eosinophils/100 leukocytes 1 % 0-10 Automated blood basophils/100 leukocytes 1 % 0-10 Blood neutrophils automated count (number/volume) 4.7 10*3 1.8-7.8 Blood lymphocytes automated count (number/volume) 1.0 10*3 1.0-4.0 Blood monocytes automated count (number/volume) 0.6 10*3 0.0-1.0 Automated eosinophil count 0.1 10*3/uL 0.0-0.3 Automated blood basophil count (count/volume) 0.0 10*3/uL 0.0-0.1 Serum or plasma troponin i.cardiac measurement (mass/volume) - 07/09/17 06:13 Serum or plasma troponin i.cardiac measurement (mass/volume) < ng/ mL <0.30 Comprehensive metabolic panel - 07/09/17 06:13 Serum or plasma sodium measurement (moles/volume) 134 mmol/L 135-145 Serum or plasma potassium measurement (moles/volume) 3.5 mmol/L 3.6-5.0 Serum or plasma chloride measurement (moles/volume) 104 mmol/L 98-107 Carbon dioxide 21 mmol/L 21-32 Serum or plasma anion gap determination (moles/volume) 9 mmol/L 5-14 Serum or plasma urea nitrogen measurement (mass/volume) 7 mg/dL 7-18 Serum or plasma creatinine measurement (mass/volume) 0.72 mg/dL 0.60-1.30 Serum or plasma urea nitrogen/creatinine mass ratio 10 NRG Serum or plasma creatinine measurement with calculation of estimated glomerular filtration rate > NRG Serum or plasma glucose measurement (mass/volume) 118 mg/dL 70-105 Serum or plasma calcium measurement (mass/volume) 9.0 mg/dL 8.5-10.1 Serum or plasma total bilirubin measurement (mass/volume) 0.4 mg/dL 0.1-1.0 Serum or plasma alkaline phosphatase measurement (enzymatic activity/volume) 61 U/L 40-136 Serum or plasma aspartate aminotransferase measurement (enzymatic activity/ volume) 13 U/L 5-34 Serum or plasma alanine aminotransferase measurement (enzymatic activity/volume ) 13 U/L 0-55 Serum or plasma protein measurement (mass/volume) 6.1 g/dL 6.4-8.2 Serum or plasma albumin measurement (mass/volume) 3.5 g/dL 3.2-4.5 Myoglobin, serum - 07/09/17 06:13 Myoglobin, serum 34.2 ng/mL 10.0-92.0 Lipid 1996 panel - 07/09/17 06:13 Serum or plasma triglyceride measurement (mass/volume) 92 mg/dL <150 Serum or plasma cholesterol measurement (mass/volume) 149 mg/dL < 200 Serum or plasma cholesterol in HDL measurement (mass/volume) 41 mg/ dL 40-60 Cholesterol in LDL [mass/volume] in serum or plasma by direct assay 90 mg/dL 1-129 Serum or plasma cholesterol in VLDL measurement (mass/volume) 18 mg/ dL 5-40 Complete blood count (CBC) with automated white blood cell (WBC) differential - 10/30/17 15:05 Blood leukocytes automated count (number/volume) 6.8 10*3/uL 4.3-11.0 Blood erythrocytes automated count (number/volume) 4.73 10*6/uL 4.35-5.85 Venous blood hemoglobin measurement (mass/volume) 14.4 g/dL 11.5-16.0 Blood hematocrit (volume fraction) 43 % 35-52 Automated erythrocyte mean corpuscular volume 90 [foz_us] 80-99 Automated erythrocyte mean corpuscular hemoglobin (mass per erythrocyte) 30 pg 25-34 Automated erythrocyte mean corpuscular hemoglobin concentration measurement ( mass/volume) 34 g/dL 32-36 Automated erythrocyte distribution width ratio 14.9 % 10.0-14.5 Automated blood platelet count (count/volume) 303 10*3/uL 130-400 Automated blood platelet mean volume measurement 8.6 [foz_us] 7.4-10.4 Automated blood neutrophils/100 leukocytes 71 % 42-75 Automated blood lymphocytes/100 leukocytes 20 % 12-44 Blood monocytes/100 leukocytes 8 % 0-12 Automated blood eosinophils/100 leukocytes 0 % 0-10 Automated blood basophils/100 leukocytes 0 % 0-10 Blood neutrophils automated count (number/volume) 4.9 10*3 1.8-7.8 Blood lymphocytes automated count (number/volume) 1.4 10*3 1.0-4.0 Blood monocytes automated count (number/volume) 0.6 10*3 0.0-1.0 Automated eosinophil count 0.0 10*3/uL 0.0-0.3 Automated blood basophil count (count/volume) 0.0 10*3/uL 0.0-0.1 Blood lactic acid measurement (moles/volume) - 10/30/17 15:05 Blood lactic acid measurement (moles/volume) 0.87 mmol/L 0.50-2.00 PT panel in platelet poor plasma by coagulation assay - 10/30/17 15:05 Prothrombin time (PT) in platelet poor plasma by coagulation assay 13.9 s 12.2-14.7 INR in platelet poor plasma or blood by coagulation assay 1.1 0.8-1.4 Activated partial thromboplastin time (aPTT) in platelet poor plasma bycoagulation assay - 10/30/17 15:05 Activated partial thromboplastin time (aPTT) in platelet poor plasma bycoagulation assay 29 s 24-35 Fibrin D-dimer FEU measurement in platelet poor plasma (mass/volume) - 15:05 Fibrin D-dimer FEU measurement in platelet poor plasma (mass/volume) 0.46 ug/mL 0.00-0.49 Comprehensive metabolic panel - 10/30/17 15:05 Serum or plasma sodium measurement (moles/volume) 139 mmol/L 135-145 Serum or plasma potassium measurement (moles/volume) 4.1 mmol/L 3.6-5.0 Serum or plasma chloride measurement (moles/volume) 107 mmol/L 98-107 Carbon dioxide 20 mmol/L 21-32 Serum or plasma anion gap determination (moles/volume) 12 mmol/L 5-14 Serum or plasma urea nitrogen measurement (mass/volume) 17 mg/dL 7-18 Serum or plasma creatinine measurement (mass/volume) 1.09 mg/dL 0.60-1.30 Serum or plasma urea nitrogen/creatinine mass ratio 16 NRG Serum or plasma creatinine measurement with calculation of estimated glomerular filtration rate 49 NRG Serum or plasma glucose measurement (mass/volume) 110 mg/dL 70-105 Serum or plasma calcium measurement (mass/volume) 9.7 mg/dL 8.5-10.1 Serum or plasma total bilirubin measurement (mass/volume) 0.6 mg/dL 0.1-1.0 Serum or plasma alkaline phosphatase measurement (enzymatic activity/volume) 58 U/L 40-136 Serum or plasma aspartate aminotransferase measurement (enzymatic activity/ volume) 19 U/L 5-34 Serum or plasma alanine aminotransferase measurement (enzymatic activity/volume ) 13 U/L 0-55 Serum or plasma protein measurement (mass/volume) 6.4 g/dL 6.4-8.2 Serum or plasma albumin measurement (mass/volume) 4.1 g/dL 3.2-4.5 Serum or plasma troponin i.cardiac measurement (mass/volume) - 10/30/17 15:05 Serum or plasma troponin i.cardiac measurement (mass/volume) < ng/ mL <0.30 Serum or plasma C reactive protein measurement (mass/volume) - 10/30/17 15:05 Serum or plasma C reactive protein measurement (mass/volume) 0.21 mg /dL 0.00-0.50 Bacterial blood culture - 10/30/17 15:05 Bacterial blood culture NG NRG Bacterial blood culture - 10/30/17 15:25 Bacterial blood culture NG NRG Encounters ACCT No. Visit Date/Time Discharge Status Pt. Type Provider Facility Loc./Unit Complaint [id number] 10/30/2017 14:34:00 10/30/2017 16:30:00 DIS Emergency JOSEFA BRAR [facility] ER INFECTED TOOTH/BODY PAIN [id number] 10/28/2017 07:47:00 10/28/2017 23:59:59 CLS Outpatient FELIZ GUY DO [facility] RAD SCIATICA OF THE LEFT LEG [id number] 10/25/2017 10:00:00 10/25/2017 23:59:59 CLS Outpatient CAMI GUY ELECTRONIC DEVELOPMENT TECHNICIAN [facility] RAD SCREENING [id number] 08/01/2017 12:30:00 08/01/2017 23:59:59 CLS Preadmit FELIZ GUY DO [facility] RAD SCREENING [id number] 07/29/2017 12:09:00 07/29/2017 23:59:59 CLS Outpatient FELIZ GUY DO [facility] RAD L WRIST PAIN [id number] 07/08/2017 22:48:00 07/09/2017 15:03:00 DIS Inpatient SERGEY HAN, EDDIE [place] [facility] 4TH BILATERAL PE,CHEST PAIN [id number] 05/08/2017 14:39:00 05/08/2017 23:59:59 CLS Outpatient FELIZ GUY DO [facility] RAD BAKERS CYST LT KNEE [id number] 01/13/2017 16:00:00 01/14/2017 09:53:00 DIS Inpatient JAILENE HAN, MARI Simon [facility] ICU RLL PULMONARY EMBOLISM [id number] 01/11/2017 13:24:00 01/11/2017 16:28:00 DIS Emergency MARIANNA CLIFFORD [facility] ER LT LEG PAIN [id number] 06/06/2016 10:28:00 06/06/2016 23:59:59 CLS Outpatient CAMI GUY ELECTRONIC DEVELOPMENT TECHNICIAN [facility] RAD SCREENING [id number] 04/05/2016 09:39:00 04/05/2016 23:59:59 CLS Outpatient FELIZ GUY DO [facility] D50.9 [id number] 02/24/2016 08:19:00 02/24/2016 11:30:00 DIS Outpatient MARI DENT MD [facility] ANEMIA [id number] 02/23/2016 12:46:00 02/23/2016 12:58:00 DIS Outpatient MARI DENT MD [facility] PREOP ANEMIA [id number] 01/14/2016 07:13:00 01/14/2016 23:59:59 CLS Outpatient FELIZ GUY DO [facility] RAD RT HIP PAIN [id number] 05/26/2015 08:39:00 05/26/2015 23:59:59 CLS Outpatient FELIZ GUY DO [facility] RAD SCREENING, OSTEOPOROSIS,MENOPAUSE [id number] 12/21/2014 10:25:00 12/21/2014 23:59:59 CLS Outpatient FELIZ GUY DO [facility] RAD SPONDYLOSIS, OSTEOARTHRITIS [id number] 03/16/2014 13:32:00 03/16/2014 23:59:59 CLS Outpatient FELIZ GUY DO [facility] RAD ROUTINE [id number] 09/29/2013 09:09:00 09/29/2013 23:59:59 CLS Outpatient CAMI GUY ELECTRONIC DEVELOPMENT TECHNICIAN [facility] RAD LOWER LEFT CALF PAIN, HX DVT [id number] 06/18/2013 11:51:00 06/18/2013 23:59:59 CLS Outpatient RIDINGSCAMI EMERGENCY ROOM PHYSICIAN [facility] RAD COUGH [id number] 12/09/2012 09:11:00 12/09/2012 23:59:59 CLS Outpatient FELIZ GUY DO [facility] RAD SCREENING [id number] 03/18/2012 10:24:00 Document Registration [id number] 10/18/2011 08:53:00 Document Registration [id number] 03/16/2011 16:34:00 Document Registration [id number] 01/15/2011 13:57:00 Document Registration [id number] 11/16/2010 14:34:00 Document Registration [id number] 10/31/2010 17:54:00 Document Registration [id number] 10/31/2010 15:33:00 Document Registration [id number] 10/23/2010 05:36:00 Document Registration [id number] 10/18/2010 13:18:00 Document Registration [id number] 10/10/2010 15:09:00 Document Registration [id number] 10/06/2010 09:29:00 Document Registration [id number] 06/20/2010 14:37:00 Document Registration [id number] 06/16/2010 05:36:00 Document Registration [id number] 06/13/2010 15:47:00 Document Registration [id number] 10/31/2017 13:53:17 10/31/2017 23:59:59 DIS Outpatient Dana Mahmood [facility]
[2018-01-31] MEDS ORDERED: GABA-486 (22:25)
--- NOTE | 2018-01-31 22:30 | ED Fall/Injury ---
General Chief Complaint: Trauma-Non Activation Stated Complaint: FALL/BACK OF HEAD PAIN Source: patient, family, spouse Exam Limitations: no limitations History of Present Illness Date Seen by Provider: Jan 31, 2018 Time Seen by Provider: 22:17 Initial Comments The patient presents to the ER by private conveyance with chief complaint of less than 30 minutes ago she was walking into her house and one step up she tripped and fell backwards landing against the back of her head. She does not think she has a goose egg there. There is no bleeding. She is a little bit of tenderness in her neck rather the fall but that's gotten better. She is having some tenderness on her left foot and her left elbow where she struck it when she went down but she says she has full range of motion and walks okay. She has multiple abdominal surgeries to include hysterectomy, appendectomy, cholecystectomy. She did not lose consciousness or have any nausea vomiting. She has mild headache but has not taken anything for it. She is on Eliquis. Allergies and Home Medications Allergies Coded Allergies: cephalexin (Unverified Allergy, Unknown, 02/24/16) meperidine (Unverified Allergy, Unknown, 02/24/16) morphine (Unverified Allergy, Unknown, 02/24/16) pentazocine (Unverified Allergy, Unknown, 02/24/16) Home Medications Apixaban 5 Mg Tablet, 10 MG PO BID Review 2 TABLETS TWICE DAILY X 7 DAYS Then 1 tablet twice a day Prescribed by: EDDIE RINCON on 07/09/17 1404 Losartan Potassium 50 Mg Tablet, 50 MG PO DAILY, (Reported) Montelukast Sodium 10 Mg Tablet, 10 MG PO HS, (Reported) Omeprazole 20 Mg Capsule.dr, 20 MG PO HS PRN for HEARTBURN, (Reported) Simvastatin 10 Mg Tablet, 10 MG PO HS, (Reported) Patient Home Medication List Home Medication List Reviewed: Yes Review of Systems Review of Systems Constitutional: No chills, No diaphoresis Eyes: Denies Blindness, Denies Blurred Vision Ears, Nose, Mouth, Throat: denies ear pain, denies ear discharge Past Lhhvbex-Vestkr-Pvipif Hx Patient Social History Alcohol Use: Denies Use Recreational Drug Use: No Smoking Status: Never a Smoker 2nd Hand Smoke Exposure: No Recent Foreign Travel: No Contact w/Someone Who Travel: No Recent Hopitalizations: No Immunizations Up To Date Date of Pneumonia Vaccine: May 01, 2016 Seasonal Allergies Seasonal Allergies: No Past Medical History Surgeries: Yes (R Total hip, Right total knee, right foot, hiatal hernia) Appendectomy, Ear Surgery, Eye Surgery, Gallbladder, Hysterectomy, Joint Replacement Respiratory: Yes Pulmonary Embolism Cardiac: Yes Deep Vein Thrombosis, Heart Murmur, High Cholesterol, Hypertension Neurological: No 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 Sexually Transmitted Disease: No HIV/AIDS: No Genitourinary: No Gastrointestinal: Yes C-Diff, Hiatal Hernia Musculoskeletal: Yes (spinal stenosis) Osteoporosis, Scoliosis Endocrine: No HEENT: Yes Cataract Cancer: No Psychosocial: No Integumentary: No Blood Disorders: Yes (anemia) Adverse Reaction/Blood Tranf: No Family Medical History Cardiovascular disease 19 FATHER 19 MOTHER G8 SISTER FH: CHF (congestive heart failure) 19 FATHER 19 MOTHER FH: COPD (chronic obstructive pulmonary disease) 19 MOTHER FH: cancer G8 BROTHER G8 SISTER FH: liver disease G8 SISTER Kidney disease G8 SISTER No Pertinent Family Hx Physical Exam Vital Signs Vital Signs - First Documented Capillary Refill : Height, Weight, BMI Height: 4'11.00" Weight: 174lbs. 0.0oz. 78.511616jf; 34.9 BMI Method:Stated General Appearance: WD/WN, no apparent distress HEENT: PERRL/EOMI, normal ENT inspection, TMs normal, pharynx normal, other ( negative for raccoon eyes, Ko sign or hemotympanum.) Neck: non-tender, full range of motion, supple, normal inspection Cardiovascular: normal peripheral pulses, regular rate, rhythm, no edema Respiratory: lungs clear, normal breath sounds, no respiratory distress, no accessory muscle use Gastrointestinal: non tender, soft Extremities: normal range of motion, non-tender, normal inspection, no pedal edema, normal capillary refill, other (left elbow is nontender with full range of motion and no swelling or ecchymoses. Left foot has some mild tenderness on the medial carpals that she is walking and bearing full weight.) Neurologic/Psychiatric: manager technology II-XII nml as tested, no motor/sensory deficits, alert, normal mood/affect, oriented x 3 [place] Coma Score Best Eye Response: (4) Open Spontaneously Best Verbal Response: (5) Oriented Best Motor Response: (6) Obeys Commands Laura Total: 15 Progress/Results/Core Measures Results/Orders My Orders Orders - MAX SANDERSON Ct Head/Cervical Spine Wo (01/31/18 22:24) Acetaminophen Tablet (Tylenol Tablet) (01/31/18 22:45) Medications Given in ED Current Medications Medications Dose Ordered Sig/Cale Route Start Time Stop Time Status Last Admin Dose Admin Acetaminophen 1,000 mg ONCE ONCE PO 01/31/18 22:45 01/31/18 22:46 DC 01/31/18 22:44 1,000 MG Vital Signs/I&O 01/31/18 01/31/18 22:18 22:18 Temp 97.3 97.3 Pulse 64 64 Resp 17 17 B/P (MAP) 158/90 (112) 158/90 (112) Progress Progress Note : Time: 22:29 Progress Note The patient says she came here because she wanted a CT of her head to rule out a bleed after her fall. She does not want any x-ray of her elbow. This was offered. We have encouraged her that up with primary care provider if her pain does not improve in her elbow and foot. We have also encouraged her to use an ice pack on her foot. She has no obvious deformity, ecchymosis or other worrisome signs. There is no external evidence of trauma except for some mild tenderness in the midline of her occiput. We'll obtain CT of her head and cervical spine however did not believe she requires cervical spine precautions as she is nontender moving her head around. Diagnostic Imaging Diagonstic Imaging: CT (without contrast) Plain Films/CT/US/NM/MRI: c-spine, head Comments No acute intracranial hemorrhage, mass effect, midline shift, tumor or cervical spine subluxation, fracture or misalignment. Reviewed: Reviewed by Me Departure Impression Primary Impression: Fall Qualified Codes: W19.XXXA - Unspecified fall, initial encounter Additional Impressions: Elbow pain, left Foot pain, left Headache Qualified Codes: G44.319 - Acute post-traumatic headache, not intractable Disposition: 01 HOME, SELF-CARE Condition: Stable Departure-Patient Inst. Decision time for Depature: 22:59 Referrals: FELIZ GUY DO (PCP/Family) Primary Care Physician Patient Instructions: Minor Head Injury (DC) Add. Discharge Instructions: 1000 mg of Tylenol every 8 hours in addition to rest. If you continue to have pain 7-10 days out in her elbow or left foot then you should present to your primary care doctor's office for reevaluation. All discharge instructions reviewed with patient and/or family. Voiced understanding. MAX SADNERSON Jan 31, 2018 22:30
[2018-01-31] MEDS ORDERED: ACETAMINOPHEN 500 MG TAB (TYLENOL) PO ONE (22:45)
[2018-01-31 23:02] VITALS: BP 158/90
--- NOTE | 2018-02-01 07:20 | Diagnostic Imaging Report ---
PROCEDURE: CT head and CT cervical spine without contrast. TECHNIQUE: Multiple contiguous axial images were obtained through the brain and cervical spine without the use of intravenous contrast. Sagittal and coronal reformations through the cervical spine were then performed. INDICATION: Fall head and neck pain COMPARISON: None. FINDINGS: CT head: Ventricles normal in size, shape and position. There is no midline shift or mass effect. There is no hemorrhage or evidence of acute ischemia. No extra-axial fluid collection is seen. There is no skull fracture. Paranasal sinuses and mastoids are clear. IMPRESSION: Negative CT head. CT cervical spine: Alignment is normal. There is no subluxation or fracture. Moderate degenerative disc disease and facet joint arthropathy is seen. There is no osseous lesion or paraspinous mass. IMPRESSION: No traumatic malalignment or fracture given preliminary report. Dictated by: Dictated on workstation # [id number]
== END 2018-01-31 23:04 | disposition home or self-care (01) ==
LOC: EDUNIT# 22:14 → ER 22:15
DX: M25.522 Pain in left elbow (principal); M79.672 Pain in left foot; R51 Headache; E78.00 Pure hypercholesterolemia, unspecified; I10 Essential (primary) hypertension; M81.0 Age-related osteoporosis without current pathological fracture; D64.9 Anemia, unspecified; R40.2142 Coma scale, eyes open, spontaneous, at arrival to emergency department; R40.2252 Coma scale, best verbal response, oriented, at arrival to emergency department; R40.2362 Coma scale, best motor response, obeys commands, at arrival to emergency department; Z82.49 Family history of ischemic heart disease and other diseases of the circulatory system; Z87.19 Personal history of other diseases of the digestive system; Z88.1 Allergy status to other antibiotic agents; Z88.5 Allergy status to narcotic agent; Z88.8 Allergy status to other drugs, medicaments and biological substances; Z86.718 Personal history of other venous thrombosis and embolism; Z79.01 Long term (current) use of anticoagulants; Z90.710 Acquired absence of both cervix and uterus; Z90.89 Acquired absence of other organs; Z90.49 Acquired absence of other specified parts of digestive tract; W01.0XXA Fall on same level from slipping, tripping and stumbling without subsequent striking against object, initial encounter
CPT/HCPCS: 70450; 72125

== ENCOUNTER 2018-05-23 21:26 | Inpatient (IN) | payer MEDICARE, OTHER ==
[~2018-05-23] VITALS: Ht 149.9 cm; Wt 82.8 kg
[~2018-05-23 21:26] MED LIST changes: +GABA-486; +LOSA25TA41 PO; -LOSA25TA6 PO; +LOSA50TA63 PO; -LOSA50TA7 PO
--- OUTSIDE RECORDS SUMMARY | 2018-05-23 21:31 | XMS REPORT | Clinical Summary ---
Author Author [facility] Organization [facility] Address Unknown Phone Unavailable Care Team Providers Care Repair Servicer Name Role Phone Josué Bertrand MD Unavailable Aquilino Rey MD Unavailable Nilesh Rubin MD Unavailable Hetal Duong Unavailable Leonel Medrano MD Unavailable No Pcp, Na PCP Unavailable Source Comments Some departments are not documenting in the electronic medical record. If you do not see the information that you expected, contact Release of Information in the Health Information Management department at [phone] for further assistance in locating additional records.[facility] Allergies Comments Active Allergy Reactions Severity Noted Date Morphine NAUSEA ONLY Low 05/24/2015 Medications End Date Status Medication Sig Dispensed Refills Start Date Active estradiol (ESTRACE) 0.01 Take by 0 % (0.1 mg/g) vaginal mouth daily. creamIndications: 0.5 Indications: 0.5 Active SIMVASTATIN PO Take by [address](+) Take 20 mg by 0 (PRILOSEC) 20 mg capsule mouth daily. Active aspirin EC 81 mg tablet Take 81 mg by 0 mouth daily. Active cholecalciferol (VITAMIN Take 1,000 0 D-3) 1,000 units tablet Units by mouth daily. Active CYANOCOBALAMIN (VITAMIN Take by 0 B-12) (VITAMIN B12 PO) mouth. Active CALCIUM CARBONATE/VITAMIN Take by 0 D3 (VITAMIN D-3 PO) mouth. Active ketoconazole (NIZORAL) 2 APPLY TO 120 mL 5 10/25/201 % topical shampoo AFFECTED AREA 6 THREE TIMES A WEEK. MASSAGE INTO SCALP THEN WASH OUT AFTER LEFT IN FOR 15 MINUTES. Active IRON (FERROUS SULFATE) PO Take by 0 mouth. Active magnesium 0 Active calcium Administer 0 through vein. Active DOCUSATE CALCIUM (STOOL Take by 0 SOFTENER PO) mouth. Active metroNIDAZOLE (METROGEL) Apply to rash 45 g 11 1 % topical on face twice 8 gelIndications: Rosacea daily as needed Active Problems Problem Noted Date Dysfunction of [...] Status Comments Brother Father Mother Social History Date Tobacco Use Types Packs/Day Years Used Never Smoker Smokeless Tobacco: Never Used Alcohol Use Drinks/Week oz/Week Comments No 0 Standard 0.0 drinks or equivalent Sex Assigned at Date Recorded Not on file Industry Job Start Date Occupation Not on file Not on file Not on file Travel End Travel History Travel Start No recent travel history available. Last Filed Vital Signs Time Taken Vital Sign Reading 06/26/2016 4:03 PM [employer] Blood Pressure 123/71 06/26/2016 4:03 PM [employer] Pulse 73 - Temperature - - Respiratory Rate - - Oxygen Saturation - - Inhaled Oxygen - Concentration 2017 10:32 AM CDT Weight 78 kg (172 lb) 2017 10:32 AM CDT Height 149.9 cm (4' 11") 2017 10:32 AM CDT Body Mass Index 34.74 Plan of Treatment Health Maintenance Due Date Last Done Comments HEPATITIS C SCREENING 1945 PHYSICAL (COMPREHENSIVE) 1952 EXAM DTAP/TDAP VACCINES (1 - 08/28/1963 Tdap) BREAST CANCER SCREENING 1985 COLORECTAL CANCER 08/28/1995 SCREENING SHINGLES RECOMBINANT 08/28/1995 VACCINE (1 of 2) OSTEOPOROSIS 2010 SCREENING/MONITORING PNEUMONIA (PCV13/PPSV23) 2010 VACCINES (1 of 2 - PCV13) INFLUENZA VACCINE 11/27/2017 02/15/1995, 02/16/1994 Results Not on filefrom Last 3 Months Insurance Payer Benefit Subscriber ID Type Phone Address Plan / Group MEDICARE MEDICARE xxxxxxxxxx Medicare PART A AND B [employer] FISHER xxxxxxxxxx Medicare MEDICARE SUPPLEMENT Advance Directives Patient has advance care planning documents on file. For more information, please contact: [facility] [address] [place] [address]
--- OUTSIDE RECORDS SUMMARY | 2018-05-23 21:32 | XMS REPORT | Continuity of Care Document ---
Author Author [facility] Organization [facility] Address Unknown Phone Unavailable Allergies Active Description Code Type Severity Reaction Onset Reported/Identified Relationship to Patient Clinical Status Yes cephalexin [id number] Drug Allergy Unknown N/A 02/24/2016 Yes meperidine [id number] Drug Allergy Unknown N/A 02/24/2016 Yes morphine [id number] Drug Allergy Unknown N/A 02/24/2016 Yes pentazocine [id number] Drug Allergy Unknown N/A 02/24/2016 Medications There [...] GUY DO Ot V76.12 05/26/2015 CAMI ABARCA CARPENTER GENERAL Ot 553.3 05/26/2015 CAMI ABARCA CARPENTER GENERAL Ot 786.2 05/26/2015 CAMI GUY SPOT WASHER Ot 729.5 05/26/2015 CAMI GUY SPOT WASHER Ot V12.51 05/26/2015 FELIZ GUY DO Ot [...] NEOPLASM OF TERRI 04/05/2016 RIMA CAMI C CARPENTER GENERAL Ot 553.3 DIAPHRAGMATIC HERNIA 04/05/2016 RIMA CAMI C CARPENTER GENERAL Ot 786.2 COUGH 04/05/2016 CAMI GUY SPOT WASHER Ot 729.5 PAIN IN LIMB 04/05/2016 CAMI GUY SPOT WASHER Ot V12.51 HX-VENOUS THROMBOSIS EMBOLISM 04/05/2016 FELIZ [...] MAMMOGRAM FOR MALIGNANT NE 06/07/2016 CAMI GUY SPOT WASHER Ot Z12.31 ENCNTR SCREEN MAMMOGRAM FOR MALIGNANT [...] 01/14/2017 MARI DENT MD Ot Z79.899 OTHER [facility] (CURRENT) DRUG THERAPY 01/14/2017 MARI DENT MD [...] ACQUIRED ABSENCE OF OTHER SPECIFIED PART 10/31/2017 JOSEFA BRAR Ot Z90.710 ACQUIRED ABSENCE OF BOTH CERVIX AND UTER 10/31/2017 JOSEFA BRAR Ot Z96.641 PRESENCE OF RIGHT ARTIFICIAL HIP JOINT 10/31/2017 JOSEFA BRAR Ot Z96.651 PRESENCE OF RIGHT ARTIFICIAL KNEE JOINT 11/15/2017 CAMI GUY Ot Z12.31 ENCNTR SCREEN MAMMOGRAM FOR MALIGNANT NE 11/19/2017 FELIZ GUY DO, Ot M41.86 OTHER FORMS OF SCOLIOSIS, LUMBAR REGION 11/19/2017 FELIZ GUY DO, Ot M46.86 OTHER SPECIFIED INFLAMMATORY SPONDYLOPAT 11/19/2017 FELIZ GUY DO, Ot M51.36 OTHER INTERVERTEBRAL DISC DEGENERATION, 11/19/2017 FELIZ GUY DO, Ot M99.73 CONN TISS AND DISC STENOS OF INTVRT FORA 01/31/2018 FELIZ GUY DO, Ot V76.12 OTH SCREEN MAMMO-MALIGN NEOPLASM OF TERRI 01/31/2018 CAMI ABARCA CARPENTER GENERAL Ot 553.3 DIAPHRAGMATIC HERNIA 01/31/2018 CAMI ABARCA CARPENTER GENERAL Ot 786.2 COUGH 01/31/2018 CAMI GUYP Ot 729.5 PAIN IN LIMB 01/31/2018 CAMI GUYP Ot V12.51 HX-VENOUS THROMBOSIS EMBOLISM 01/31/2018 FELIZ GUY DO, Ot V76.12 OTH SCREEN MAMMO-MALIGN NEOPLASM OF TERRI 01/31/2018 FELIZ GUY DO Ot 719.45 JOINT PAIN-PELVIS 01/31/2018 FELIZ GUY DO Ot 721.3 LUMBOSACRAL SPONDYLOSIS 01/31/2018 FELIZ GUY DO Ot 737.30 IDIOPATHIC SCOLIOSIS 01/31/2018 FELIZ GUY DO, Ot Z12.31 ENCNTR SCREEN MAMMOGRAM FOR MALIGNANT NE 01/31/2018 FELIZ GUY DO, Ot Z13.820 ENCOUNTER FOR SCREENING FOR OSTEOPOROSIS 01/31/2018 FELIZ GUY DO Ot Z78.0 ASYMPTOMATIC MENOPAUSAL STATE 01/31/2018 FELIZ GUY DO, Ot M25.551 PAIN IN RIGHT HIP 01/31/2018 FELIZ GUY DO Ot D50.9 IRON DEFICIENCY ANEMIA, UNSPECIFIED 01/31/2018 BROOKS CAMI Yamilex RAHEEM Ot Z12.31 ENCNTR SCREEN MAMMOGRAM FOR MALIGNANT NE 01/31/2018 FELIZ GUY DO, Ot M71.22 SYNOVIAL CYST OF POPLITEAL SPACE [RUEDA] 01/31/2018 FELIZ GUY DO, Ot M19.042 PRIMARY OSTEOARTHRITIS, LEFT HAND 01/31/2018 BROOKS CAMI Yamilex RAHEEM Ot Z12.31 ENCNTR SCREEN MAMMOGRAM FOR MALIGNANT NE 01/31/2018 FELIZ GUY DO, Ot M41.86 OTHER FORMS OF SCOLIOSIS, LUMBAR REGION 01/31/2018 FELIZ GUY DO, Ot M46.86 OTHER SPECIFIED INFLAMMATORY SPONDYLOPAT 01/31/2018 FELIZ GUY DO, Ot M51.36 OTHER INTERVERTEBRAL DISC DEGENERATION, 01/31/2018 FELIZ GUY DO, Ot M99.73 CONN TISS AND DISC STENOS OF INTVRT FORA 01/31/2018 MAX SANDERSON MD Ot D64.9 ANEMIA, UNSPECIFIED 01/31/2018 MAX SANDERSON MD Ot E78.00 PURE HYPERCHOLESTEROLEMIA, UNSPECIFIED 01/31/2018 MAX SANDERSON MD Ot I10 ESSENTIAL (PRIMARY) HYPERTENSION 01/31/2018 MAX SANDERSON MD Ot M25.522 PAIN IN LEFT ELBOW 01/31/2018 MAX SANDERSON MD, Ot M79.672 PAIN IN LEFT FOOT 01/31/2018 MAX SANDERSON MD Ot M81.0 AGE-RELATED OSTEOPOROSIS W/O CURRENT PAT 01/31/2018 MAX SANDERSON MD, Ot R40.2142 COMA SCALE, EYES OPEN, SPONTANEOUS, EMR 01/31/2018 MAX SANDERSON MD, Ot R40.2252 COMA SCALE, BEST VERBAL RESPONSE, ORIENT 01/31/2018 MAX SANDERSON MD, Ot R40.2362 COMA SCALE, BEST MOTOR RESPONSE, OBEYS C 01/31/2018 MAX SANDERSON MD Ot R51 HEADACHE 01/31/2018 MAX SANDERSON MD Ot W01.0XXA FALL SAME LEV FROM SLIP/TRIP W/O STRIKE 01/31/2018 MAX SANDERSON MD, Ot Z79.01 MCC (CURRENT) USE OF ANTICOAGULANT 01/31/2018 MAX SANDERSON MD, Ot Z82.49 FAMILY HX OF ISCHEM HEART DIS AND OTH DI 01/31/2018 MAX SANDERSON MD, Ot Z86.718 PERSONAL HISTORY OF OTHER VENOUS THROMBO 01/31/2018 MAX SANDERSON MD Ot Z87.19 PERSONAL HISTORY OF OTHER DISEASES OF TH 01/31/2018 MAX SANDERSON MD Ot Z88.1 ALLERGY STATUS TO OTHER ANTIBIOTIC AGENT 01/31/2018 MAX SANDERSON MD, Ot Z88.5 ALLERGY STATUS TO NARCOTIC AGENT STATUS 01/31/2018 MAX SANDERSON MD, Ot Z88.8 ALLERGY STATUS TO OTH DRUG/MEDS/BIOL SUB 01/31/2018 MAX SANDERSON MD, Ot Z90.49 ACQUIRED ABSENCE OF OTHER SPECIFIED PART 01/31/2018 MAX SANDERSON MD Ot Z90.710 ACQUIRED ABSENCE OF BOTH CERVIX AND UTER 01/31/2018 MAX SANDERSON MD Ot Z90.89 ACQUIRED ABSENCE OF OTHER ORGANS 02/03/2018 MAX SANDERSON MD, Ot D64.9 ANEMIA, UNSPECIFIED 02/03/2018 MAX SANDERSON MD Ot E78.00 PURE HYPERCHOLESTEROLEMIA, UNSPECIFIED 02/03/2018 MAX SANDERSON MD Ot I10 ESSENTIAL (PRIMARY) HYPERTENSION 02/03/2018 MAX SANDERSON MD Ot M25.522 PAIN IN LEFT ELBOW 02/03/2018 MAX SANDERSON MD Ot M79.672 PAIN IN LEFT FOOT 02/03/2018 MAX SANDERSON MD Ot M81.0 AGE-RELATED OSTEOPOROSIS W/O CURRENT PAT 02/03/2018 MAX SANDERSON MD Ot R40.2142 COMA SCALE, EYES OPEN, SPONTANEOUS, EMR 02/03/2018 MAX SANDERSON MD, Ot R40.2252 COMA SCALE, BEST VERBAL RESPONSE, ORIENT 02/03/2018 MAX SANDERSON MD, Ot R40.2362 COMA SCALE, BEST MOTOR RESPONSE, OBEYS C 02/03/2018 MAX SANDERSON MD Ot R51 HEADACHE 02/03/2018 MAX SANDERSON MD Ot W01.0XXA FALL SAME LEV FROM SLIP/TRIP W/O STRIKE 02/03/2018 MAX SANDERSON MD Ot Z79.01 MCC (CURRENT) USE OF ANTICOAGULANT 02/03/2018 MAX SANDERSON MD, Ot Z82.49 FAMILY HX OF ISCHEM HEART DIS AND OTH DI 02/03/2018 MAX SANDERSON MD, Ot Z86.718 PERSONAL HISTORY OF OTHER VENOUS THROMBO 02/03/2018 MAX SANDERSON MD, Ot Z87.19 PERSONAL HISTORY OF OTHER DISEASES OF TH 02/03/2018 MAX SANDERSON MD, Ot Z88.1 ALLERGY STATUS TO OTHER ANTIBIOTIC AGENT 02/03/2018 MAX SANDERSON MD, Ot Z88.5 ALLERGY STATUS TO NARCOTIC AGENT STATUS 02/03/2018 MAX SANDERSON MD, Ot Z88.8 ALLERGY STATUS TO [facility] DRUG/MEDS/BIOL SUB 02/03/2018 MAX SANDERSON MD, Ot Z90.49 ACQUIRED ABSENCE OF OTHER SPECIFIED PART 02/03/2018 MAX SANDERSON MD, Ot Z90.710 ACQUIRED ABSENCE OF BOTH CERVIX AND UTER 02/03/2018 MAX SANDERSON MD, Ot Z90.89 ACQUIRED ABSENCE OF OTHER ORGANS Procedures There is no data. Results Test Result Range RED CELLS LEUKO REDUCED AS1 - 04/05/16 10:10 RED CELLS LEUKO REDUCED AS1 TRANSFUSED 04/05/16 1121 [facility] Blood type T Indirect antibody screen panel - 04/05/16 10:10 ABO+Rh group AP [facility] Transfusion band number [id number] [facility] Blood group antibody screen NEGATIVE [facility] Complete blood count (CBC) with automated white [...] Status Pt. Type Provider Facility Loc./Unit Complaint [id number] 01/31/2018 22:15:00 01/31/2018 23:04:00 DIS Emergency MAX SANDERSON MD [facility] ER FALL/BACK OF HEAD PAIN [id number] 10/30/2017 14:34:00 10/30/2017 16:30:00 DIS Emergency JOSEFA BRAR [facility] ER INFECTED TOOTH/BODY PAIN [id number] 10/28/2017 07:47:00 10/28/2017 23:59:59 CLS Outpatient FELIZ GUY DO [facility] RAD SCIATICA OF THE LEFT LEG [id number] 10/25/2017 10:00:00 10/25/2017 23:59:59 CLS Outpatient CAMI GUY SPOT WASHER [facility] RAD SCREENING [id number] 08/01/2017 12:30:00 08/01/2017 23:59:59 CLS Preadmit FELIZ GUY DO [facility] RAD SCREENING [id number] 07/29/2017 12:09:00 07/29/2017 23:59:59 CLS Outpatient FELIZ GUY DO [facility] RAD L WRIST PAIN [id number] 07/08/2017 22:48:00 07/09/2017 15:03:00 DIS Inpatient EDDIE RINCON MD [facility] 4TH BILATERAL PE,CHEST PAIN [id number] 05/08/2017 14:39:00 05/08/2017 23:59:59 CLS Outpatient FELIZ GUY DO [facility] RAD BAKERS CYST LT KNEE [id number] 01/13/2017 16:00:00 01/14/2017 09:53:00 DIS Inpatient MARI DENT MD [facility] ICU RLL PULMONARY EMBOLISM [id number] 01/11/2017 13:24:00 01/11/2017 16:28:00 DIS Emergency MARIANNA CLIFFORD [facility] ER LT LEG PAIN [id number] 06/06/2016 10:28:00 06/06/2016 23:59:59 CLS Outpatient CAMI GUY [facility] RAD SCREENING [id number] 04/05/2016 09:39:00 04/05/2016 23:59:59 CLS Outpatient FELIZ GUY DO [facility] D50.9 [id number] 02/24/2016 08:19:00 02/24/2016 11:30:00 DIS Outpatient MARI DENT MD [facility] ANEMIA [id number] 02/23/2016 12:46:00 02/23/2016 12:58:00 DIS Outpatient MARI DENT MD [facility] PREOP ANEMIA [id number] 01/14/2016 07:13:00 01/14/2016 23:59:59 CLS Outpatient FELIZ GUY DO [facility] RAD RT HIP PAIN [id number] 05/26/2015 08:39:00 05/26/2015 23:59:59 CLS Outpatient FELIZ GUY DO [facility] RAD SCREENING, OSTEOPOROSIS,MENOPAUSE [id number] 12/21/2014 10:25:00 12/21/2014 23:59:59 CLS Outpatient FELIZ GUY DO [facility] RAD SPONDYLOSIS, OSTEOARTHRITIS [id number] 03/16/2014 13:32:00 03/16/2014 23:59:59 CLS Outpatient FELIZ GUY DO [facility] RAD ROUTINE [id number] 09/29/2013 09:09:00 09/29/2013 23:59:59 CLS Outpatient CAMI GUY [facility] RAD LOWER LEFT CALF PAIN, HX DVT [id number] 06/18/2013 11:51:00 06/18/2013 23:59:59 CLS Outpatient KEVININGSCAMI APRN [facility] RAD COUGH [id number] 12/09/2012 09:11:00 12/09/2012 23:59:59 CLS Outpatient FELIZ GUY DO [facility] RAD SCREENING [id number] 05/23/2018 21:27:00 ACT Emergency MARILEE YEPEZ MD [facility] ER CONSTIPATION X8 DAYS [id number] 03/18/2012 10:24:00 Document Registration [id number] 10/18/2011 08:53:00 Document Registration [id number] 03/16/2011 16:34:00 Document Registration [id number] 01/15/2011 13:57:00 Document Registration [id number] 11/16/2010 14:34:00 Document Registration [id number] 10/31/2010 17:54:00 Document Registration [id number] 10/31/2010 15:33:00 Document Registration [id number] 10/23/2010 05:36:00 Document Registration [id number] 10/18/2010 13:18:00 Document Registration [id number] 10/10/2010 15:09:00 Document Registration [id number] 10/06/2010 09:29:00 Document Registration [id number] 06/20/2010 14:37:00 Document Registration [id number] 06/16/2010 05:36:00 Document Registration [id number] 06/13/2010 15:47:00 Document Registration [id number] 10/31/2017 13:53:17 10/31/2017 23:59:59 DIS Outpatient Dana Mahmood [facility]
--- NOTE | 2018-05-23 22:20 | ED GI ---
General Chief Complaint: Abdominal/GI Problems Stated Complaint: CONSTIPATION X8 DAYS Source of Information: Patient, Family Exam Limitations: No Limitations (HANNAH RUSSO APRN) History of Present Illness Date Seen by Provider: May 23, 2018 Time Seen by Provider: 22:19 Initial Comments To ER with reports of constipation and no bowel movement 8 days. She's also had nausea. She had back surgery in [place] last week. This was done outpatient. Timing/Duration: 1 Week Severity/Quality: Moderate Location: Suprapubic Radiation: No Radiation Activities at Onset: None Associated Symptoms: Nausea/Vomiting (HANNAH RUSSO APRN) Allergies and Home Medications Allergies Coded Allergies: cephalexin (Unverified Allergy, Unknown, 02/24/16) meperidine (Unverified Allergy, Unknown, 02/24/16) morphine (Unverified Allergy, Unknown, 02/24/16) pentazocine (Unverified Allergy, Unknown, 02/24/16) Home Medications Apixaban 5 Mg Tablet, 10 MG PO BID Review 2 TABLETS TWICE DAILY X 7 DAYS Then 1 tablet twice a day Prescribed by: EDDIE RINCON on 07/09/17 1404 Losartan Potassium 50 Mg Tablet, 50 MG PO DAILY, (Reported) Montelukast Sodium 10 Mg Tablet, 10 MG PO HS, (Reported) Omeprazole 20 Mg Capsule.dr, 20 MG PO HS PRN for HEARTBURN, (Reported) Simvastatin 10 Mg Tablet, 10 MG PO HS, (Reported) Patient Home Medication List Home Medication List Reviewed: Yes (HANNAH RUSSO APRN) Review of Systems Review of Systems Constitutional: see HPI EENTM: No Symptoms Reported Respiratory: No Symptoms Reported Cardiovascular: No Symptoms Reported Gastrointestinal: See HPI, Abdominal Pain, Constipated, Nausea, Vomiting Genitourinary: No Symptoms Reported Musculoskeletal: no symptoms reported Skin: no symptoms reported Psychiatric/Neurological: No Symptoms Reported Endocrine: No Symptoms Reported Hematologic/Lymphatic: No Symptoms Reported (HANNAH RUSSO APRN) Past Dummywe-Pfxpnc-Syellj Hx Patient Social History 2nd Hand Smoke Exposure: No Recent Foreign Travel: No Contact w/Someone Who Travel: No Recent Hopitalizations: No (HANNAH RUSSO APRN) Immunizations Up To Date Tetanus Booster (TDap): Unknown Date of Pneumonia Vaccine: May 01, 2016 (HANNAH RUSSO APRN) Seasonal Allergies Seasonal Allergies: No (HANNAH RUSSO APRN) Past Medical History Surgeries: Yes (R Total hip, Right total knee, right foot, hiatal hernia) Appendectomy, Ear Surgery, Eye Surgery, Gallbladder, Hysterectomy, Joint Replacement Respiratory: Yes Pulmonary Embolism Cardiac: Yes Deep Vein Thrombosis, Heart Murmur, High Cholesterol, Hypertension Neurological: No Reproductive Disorders: No 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 Sexually Transmitted Disease: No HIV/AIDS: No Genitourinary: No Gastrointestinal: Yes C-Diff, Hiatal Hernia Musculoskeletal: Yes (spinal stenosis) Osteoporosis, Scoliosis Endocrine: No HEENT: Yes Cataract Cancer: No Psychosocial: No Integumentary: No Blood Disorders: Yes (anemia) Adverse Reaction/Blood Tranf: No (HANNAH RUSSO APRN) Family Medical History Cardiovascular disease 19 FATHER 19 MOTHER G8 SISTER FH: CHF (congestive heart failure) 19 FATHER 19 MOTHER FH: COPD (chronic obstructive pulmonary disease) 19 MOTHER FH: cancer G8 BROTHER G8 SISTER FH: liver disease G8 SISTER Kidney disease G8 SISTER No Pertinent Family Hx (HANNAH RUSSO APRN) Physical Exam Vital Signs Vital Signs - First Documented 05/23/18 21:30 Temp 97.9 Pulse 68 Resp 16 B/P (MAP) 111/67 (82) Pulse Ox 96 O2 Delivery Room Air (MARILEE YEPEZ MD) Vital Signs Capillary Refill : (HANNAH RUSSO APRN) Height/Weight/BMI Height: 4'11.00" Weight: 174lbs. 0.0oz. 78.141945nc; 34.9 BMI Method:Stated General Appearance: WD/WN, no apparent distress HEENT: PERRL/EOMI, normal ENT inspection Neck: non-tender, full range of motion Respiratory: no respiratory distress, no accessory muscle use Gastrointestinal: normal bowel sounds, soft, tenderness (suprapubic) Extremities: normal range of motion, non-tender Neurologic/Psychiatric: alert, normal mood/affect, oriented x 3 Skin: normal color, warm/dry (HANNAH RUSSO APRN) Progress/Results/Core Measures Results/Orders Lab Results Laboratory Tests Test 05/23/18 22:17 05/24/18 00:00 Range/Units White Blood Count 15.5 H 4.3-11.0 10^3/uL Red Blood Count 5.18 4.35-5.85 10^6/uL Hemoglobin 15.0 11.5-16.0 G/DL Hematocrit 45 35-52 % Mean Corpuscular Volume 87 80-99 FL Mean Corpuscular Hemoglobin 29 25-34 PG Mean Corpuscular Hemoglobin Concent 33 32-36 G/DL Red Cell Distribution Width 13.9 10.0-14.5 % Platelet Count 315 130-400 10^3/uL Mean Platelet Volume 8.7 7.4-10.4 FL Neutrophils (%) (Auto) 76 H 42-75 % Lymphocytes (%) (Auto) 13 12-44 % Monocytes (%) (Auto) 12 0-12 % Eosinophils (%) (Auto) 0 0-10 % Basophils (%) (Auto) 0 0-10 % Neutrophils # (Auto) 11.7 H 1.8-7.8 X 10^3 Lymphocytes # (Auto) 2.0 1.0-4.0 X 10^3 Monocytes # (Auto) 1.8 H 0.0-1.0 X 10^3 Eosinophils # (Auto) 0.0 0.0-0.3 10^3/uL Basophils # (Auto) 0.0 0.0-0.1 10^3/uL Neutrophils % (Manual) 67 % Lymphocytes % (Manual) 18 % Monocytes % (Manual) 13 % Eosinophils % (Manual) 0 % Basophils % (Manual) 0 % Band Neutrophils 2 % Blood Morphology Comment NORMAL Sodium Level 133 L 135-145 MMOL/L Potassium Level 4.3 3.6-5.0 MMOL/L Chloride Level 103 98-107 MMOL/L Carbon Dioxide Level 14 L 21-32 MMOL/L Anion Gap 16 H 5-14 MMOL/L Blood Urea Nitrogen 27 H 7-18 MG/DL Creatinine 0.93 0.60-1.30 MG/DL Estimat Glomerular Filtration Rate 59 BUN/Creatinine Ratio 29 Glucose Level 70-105 MG/DL Calcium Level 8.9 8.5-10.1 MG/DL (MARILEE YEPEZ MD) My Orders Orders - MARILEE YEPEZ MD Ua Culture If Indicated (05/23/18 22:40) Ct Abdomen/Pelvis Wo (05/23/18 23:16) Amylase (05/24/18 00:05) Hs C Reactive Protein (05/24/18 00:05) Lipase (05/24/18 00:05) Liver Panel (05/24/18 00:05) Apixaban Tablet (Eliquis Tablet) (05/24/18 00:15) Ondansetron Injection (Zofran Injectio (05/24/18 00:15) Glucose (05/24/18 00:00) (MARILEE YEPEZ MD) Medications Given in ED Current Medications Medications Dose Ordered Sig/Cale Route Start Time Stop Time Status Last Admin Dose Admin Ondansetron HCl 4 mg ONCE ONCE IVP 05/23/18 22:30 05/23/18 22:31 DC 05/23/18 22:34 4 MG (MARILEE YEPEZ MD) Vital Signs/I&O 05/23/18 21:30 Temp 97.9 Pulse 68 Resp 16 B/P (MAP) 111/67 (82) Pulse Ox 96 O2 Delivery Room Air (MARILEE YEPEZ MD) Progress Progress Note : Progress Note Assumed care from. SONIA Russo pending labs and CT. 0005: Reexamined after CT complete showing pancreatitis. Patient does have moderate to significant left upper quadrant pain on palpation with lesser degrees of pain throughout the rest of the abdominal exam. Lungs are clear auscultation bilaterally. Heart is regular in rate and rhythm. I was able to establish IV to the right EJ. She was very difficult stick earlier and we were only able to get partial labs. We will complete labs including lipase, amylase and CRP. CT scan shows clear pancreatitis. I did discuss the case with Dr. Guerra and he accepts patient for admission, inpatient status. Eliquis 5 mg by mouth given and she has missed her evening dose. We will continue that twice a day. Zofran 4 mg IV ordered as she still has some nausea. We were able to complete the 500 mL normal saline bolus and we will continue IV fluids inpatient. Patient and family agree with plan. (MARILEE YEPEZ MD) Diagnostic Imaging Diagonstic Imaging: CT Plain Films/CT/US/NM/MRI: abdomen, pelvis Comments Pancreatitis, hiatal hernia, moderate stool but no focal impaction or small bowel obstruction noted on CT scan. Reviewed: Reviewed Night Hawk Study, Reviewed by Me (MARLIEE YEPEZ MD) Departure Communication (Admissions) Time/Spoke to Admitting Phy: 00:05 (MARILEE YEPEZ MD) Impression Primary Impression: Pancreatitis Qualified Codes: K85.90 - Acute pancreatitis without necrosis or infection, unspecified Additional Impression: Constipation Qualified Codes: K59.00 - Constipation, unspecified Disposition: 01 HOME, SELF-CARE Condition: Improved Admissions Decision to Admit Reason: Admit from ER (General) Decision to Admit/Date: May 24, 2018 Time/Decision to Admit Time: 00:05 (MARILEE YEPEZ MD) Departure-Patient Inst. Referrals: FELIZ GUY DO (PCP/Family) Primary Care Physician HANNAH RUSSO APRN May 23, 2018 22:20 MARILEE YEPEZ MD May 24, 2018 00:20
[2018-05-23 22:23] LABS: BASOPHILS % (AUTO) 0 % (0-10); EOSINOPHILS % (AUTO) 0 % (0-10); HEMATOCRIT 45 % (35-52); LYMPHOCYTES % (AUTO) 13 % (12-44); MEAN CORPUSCULAR HEMOGLOBIN 29 PG (25-34); MEAN CORPUSCULAR HGB CONC 33 G/DL (32-36); MEAN CORPUSCULAR VOLUME 87 FL (80-99); MEAN PLATELET VOLUME 8.7 FL (7.4-10.4); MONOCYTES # (AUTO) 1.8 X 10^3 (0.0-1.0); MONOCYTES % (AUTO) 12 % (0-12); NEUTROPHILS # (AUTO) 11.7 X 10^3 (1.8-7.8); NEUTROPHILS % (AUTO) 76 % (42-75); PLATELET COUNT 315 10^3/uL (130-400); RED CELL DISTRIBUTION WIDTH 13.9 % (10.0-14.5); WHITE BLOOD COUNT 15.5 10^3/uL (4.3-11.0)
[2018-05-23] MEDS ORDERED: NS IV 500 ML 500 ML IV SCH (22:30)
[2018-05-23] MEDS ORDERED: ONDANSETRON 4 MG/2 ML (SDV) Z0FRAN IVP ONE (22:30)
[2018-05-23 22:56] LABS: BUN/CREATININE RATIO 29; CHLORIDE 103 MMOL/L (98-107); CREATININE SERUM 0.93 MG/DL (0.60-1.30); GFR ESTIMATED 59; POTASSIUM 4.3 MMOL/L (3.6-5.0); SODIUM 133 MMOL/L (135-145)
[2018-05-23 23:09] LABS: BAND NEUTROPHILS 2 %; BASOPHILS % (MANUAL) 0 %; CALCIUM 8.9 MG/DL (8.5-10.1); EOSINOPHILS % (MANUAL) 0 %; LYMPHOCYTES % (MANUAL) 18 %; MONOCYTES % (MANUAL) 13 %; NEUTROPHILS % (MANUAL) 67 %; RBC MORPH NORMAL
[2018-05-23 23:12] LABS: CARBON DIOXIDE 14 MMOL/L (21-32)
[2018-05-24] VITALS (7 sets, daily range): BP systolic 82–125; BP diastolic 43–64
[2018-05-24] MEDS ORDERED: ONDANSETRON 4 MG/2 ML (SDV) Z0FRAN IVP ONE (00:15)
[2018-05-24] MEDS ORDERED: APIXABAN 5 MG (ELIQUIS) TABLET PO ONE (00:15)
[2018-05-24 00:26] LABS: ALBUMIN 3.5 GM/DL (3.2-4.5); BILIRUBIN,DIRECT 0.2 MG/DL (0.0-0.3); BILIRUBIN,INDIRECT 0.4 MG/DL; BILIRUBIN,TOTAL 0.6 MG/DL (0.1-1.0); TOTAL PROTEIN 5.5 GM/DL (6.4-8.2)
--- OUTSIDE RECORDS SUMMARY | 2018-05-24 00:29 | XMS REPORT | Clinical Summary ---
Author Author [facility] Organization [facility] Address Unknown Phone Unavailable Care Team Providers Care Header Operator Name Role Phone Josué Bertrand MD Unavailable Aquilino Rey MD Unavailable Nilesh Rubin MD Unavailable Hetal Duong Unavailable Leonel Medrano MD Unavailable No Pcp, Na PCP Unavailable Source Comments Some departments are not documenting in the electronic medical record. If you do not see the information that you expected, contact Release of Information in the Health Information Management department at [phone] for further assistance in locating additional records.[facility] Allergies Comments Active Allergy Reactions Severity [...] Taken Vital Sign Reading 06/26/2016 4:03 PM [employer] Blood Pressure 123/71 06/26/2016 4:03 PM [employer] Pulse 73 - Temperature - - Respiratory [...] on file. For more information, please contact: [facility] [address] [place] [address]
--- OUTSIDE RECORDS SUMMARY | 2018-05-24 00:30 | XMS REPORT | Continuity of Care Document ---
Author Author [facility] Organization [facility] Address Unknown Phone Unavailable Allergies Active Description Code Type Severity Reaction Onset Reported/Identified Relationship to Patient Clinical Status Yes cephalexin [id number] Drug Allergy Unknown N/A 02/24/2016 Yes meperidine [id number] Drug Allergy Unknown N/A 02/24/2016 Yes morphine [id number] Drug Allergy Unknown N/A 02/24/2016 Yes pentazocine [id number] Drug Allergy Unknown N/A 02/24/2016 Medications There [...] GUY DO Ot V76.12 05/26/2015 CAMI ABARCA ENVIRONMENTAL MANAGER Ot 553.3 05/26/2015 CAMI ABARCA ENVIRONMENTAL MANAGER Ot 786.2 05/26/2015 CAMI GUY RADIAGRAPH OPERATOR Ot 729.5 05/26/2015 CAMI GUY RADIAGRAPH OPERATOR Ot V12.51 05/26/2015 FELIZ GUY DO Ot [...] NEOPLASM OF TERRI 04/05/2016 RIMA CAMI C ENVIRONMENTAL MANAGER Ot 553.3 DIAPHRAGMATIC HERNIA 04/05/2016 RIMA CAMI C ENVIRONMENTAL MANAGER Ot 786.2 COUGH 04/05/2016 CAMI GUY RADIAGRAPH OPERATOR Ot 729.5 PAIN IN LIMB 04/05/2016 CAMI GUY RADIAGRAPH OPERATOR Ot V12.51 HX-VENOUS THROMBOSIS EMBOLISM 04/05/2016 FELIZ [...] MAMMOGRAM FOR MALIGNANT NE 06/07/2016 CAMI GUY RADIAGRAPH OPERATOR Ot Z12.31 ENCNTR SCREEN MAMMOGRAM FOR MALIGNANT [...] OF OTHER DISEASES OF TH 01/11/2017 MARIANNA CLIFFODR Ot Z90.49 ACQUIRED ABSENCE OF OTHER SPECIFIED [...] 01/14/2017 MARI DENT MD Ot Z79.899 OTHER CUSTODIAL (CURRENT) DRUG THERAPY 01/14/2017 MARI DENT MD [...] MAMMO-MALIGN NEOPLASM OF TERRI 01/31/2018 CAMI ABARCA ENVIRONMENTAL MANAGER Ot 553.3 DIAPHRAGMATIC HERNIA 01/31/2018 CAMI ABARCA ENVIRONMENTAL MANAGER Ot 786.2 COUGH 01/31/2018 CAMI GUYP Ot [...] STRIKE 01/31/2018 MAX SANDERSON MD, Ot Z79.01 CUSTODIAL (CURRENT) USE OF ANTICOAGULANT 01/31/2018 MAX SANDERSON [...] STRIKE 02/03/2018 MAX SANDERSON MD Ot Z79.01 CUSTODIAL (CURRENT) USE OF ANTICOAGULANT 02/03/2018 MAX SANDERSON [...] SANDERSON MD, Ot Z88.8 ALLERGY STATUS TO [facility] DRUG/MEDS/BIOL SUB 02/03/2018 MAX SANDERSON [...] CELLS LEUKO REDUCED AS1 TRANSFUSED 04/05/16 1121 [facility] Blood type T Indirect antibody screen panel - 04/05/16 10:10 ABO+Rh group AP [facility] Transfusion band number [id number] [facility] Blood group antibody screen NEGATIVE [facility] Complete blood count (CBC) with automated white [...] 10/30/17 15:25 Bacterial blood culture NG NRG Complete blood count (CBC) with automated white blood cell (WBC) differential - 05/23/18 22:17 Blood leukocytes automated count (number/volume) 15.5 10*3/uL 4.3-11.0 Blood erythrocytes automated count (number/volume) 5.18 10*6/uL 4.35-5.85 Venous blood hemoglobin measurement (mass/volume) 15.0 g/dL 11.5-16.0 Blood hematocrit (volume fraction) 45 % 35-52 Automated erythrocyte mean corpuscular volume 87 [foz_us] 80-99 Automated erythrocyte mean corpuscular hemoglobin (mass per erythrocyte) 29 pg 25-34 Automated erythrocyte mean corpuscular hemoglobin concentration measurement ( mass/volume) 33 g/dL 32-36 Automated erythrocyte distribution width ratio 13.9 % 10.0-14.5 Automated blood platelet count (count/volume) 315 10*3/uL 130-400 Automated blood platelet mean volume measurement 8.7 [foz_us] 7.4-10.4 Automated blood neutrophils/100 leukocytes 76 % 42-75 Automated blood lymphocytes/100 leukocytes 13 % 12-44 Blood monocytes/100 leukocytes 12 % 0-12 Automated blood eosinophils/100 leukocytes 0 % 0-10 Automated blood basophils/100 leukocytes 0 % 0-10 Blood neutrophils automated count (number/volume) 11.7 10*3 1.8-7.8 Blood lymphocytes automated count (number/volume) 2.0 10*3 1.0-4.0 Blood monocytes automated count (number/volume) 1.8 10*3 0.0-1.0 Automated eosinophil count 0.0 10*3/uL 0.0-0.3 Automated blood basophil count (count/volume) 0.0 10*3/uL 0.0-0.1 Whole blood basic metabolic panel - 05/23/18 22:17 Serum or plasma sodium measurement (moles/volume) 133 mmol/L 135-145 Serum or plasma potassium measurement (moles/volume) 4.3 mmol/L 3.6-5.0 Serum or plasma chloride measurement (moles/volume) 103 mmol/L 98-107 Carbon dioxide 14 mmol/L 21-32 Serum or plasma anion gap determination (moles/volume) 16 mmol/L 5-14 Serum or plasma urea nitrogen measurement (mass/volume) 27 mg/dL 7-18 Serum or plasma creatinine measurement (mass/volume) 0.93 mg/dL 0.60-1.30 Serum or plasma urea nitrogen/creatinine mass ratio 29 NRG Serum or plasma creatinine measurement with calculation of estimated glomerular filtration rate 59 NRG Serum or plasma calcium measurement (mass/volume) 8.9 mg/dL 8.5-10.1 Blood manual differential performed detection - 05/23/18 22:17 Blood monocytes/100 leukocytes 13 % NRG Manual blood segmented neutrophils/100 leukocytes 67 % NRG Blood band neutrophils/100 leukocytes 2 % NRG Manual blood lymphocytes/100 leukocytes 18 % NRG Manual eosinophils/100 leukocytes in nose 0 % NRG Manual blood basophils/100 leukocytes 0 % NRG Blood erythrocyte morphology finding identification NORMAL NRG Liver function panel (serum or plasma alk phos, alb, total and direct bili, total protein, ALT, AST) - 05/24/18 00:00 Serum or plasma total bilirubin measurement (mass/volume) 0.6 mg/dL 0.1-1.0 Serum or plasma alkaline phosphatase measurement (enzymatic activity/volume) 60 U/L 40-136 Serum or plasma aspartate aminotransferase measurement (enzymatic activity/ volume) 13 U/L 5-34 Serum or plasma alanine aminotransferase measurement (enzymatic activity/volume ) 21 U/L 0-55 Serum or plasma protein measurement (mass/volume) 5.5 g/dL 6.4-8.2 Serum or plasma albumin measurement (mass/volume) 3.5 g/dL 3.2-4.5 Bilirubin direct 0.2 mg/dL 0.0-0.3 Serum or plasma indirect bilirubin measurement (mass/volume) 0.4 mg/ dL NRG Serum or plasma glucose measurement (mass/volume) - 05/24/18 00:00 Serum or plasma glucose measurement (mass/volume) 94 mg/dL 70-105 Serum or plasma amylase measurement (enzymatic activity/volume) - 05/24/18 00: 00 Serum or plasma amylase measurement (enzymatic activity/volume) 598 U/L 25-125 Serum or plasma C reactive protein measurement (mass/volume) - 05/24/18 00:00 Serum or plasma C reactive protein measurement (mass/volume) 6.01 mg /dL 0.00-0.50 Encounters ACCT No. Visit Date/Time Discharge Status Pt. Type Provider Facility Loc./Unit Complaint [id number] 01/31/2018 22:15:00 01/31/2018 23:04:00 DIS Emergency MAX SADNERSON MD [facility] ER FALL/BACK OF HEAD PAIN [id number] 10/30/2017 14:34:00 10/30/2017 16:30:00 DIS Emergency JOSEFA BRAR [facility] ER INFECTED TOOTH/BODY PAIN [id number] 10/28/2017 07:47:00 10/28/2017 23:59:59 CLS Outpatient FELIZ GUY DO [facility] RAD SCIATICA OF THE LEFT LEG [id number] 10/25/2017 10:00:00 10/25/2017 23:59:59 CLS Outpatient CAMI GUY RADIAGRAPH OPERATOR [facility] RAD SCREENING [id number] 08/01/2017 12:30:00 08/01/2017 23:59:59 CLS Preadmit FELIZ GUY DO [facility] RAD SCREENING [id number] 07/29/2017 12:09:00 07/29/2017 23:59:59 CLS Outpatient FELIZ GUY DO [facility] RAD L WRIST PAIN [id number] 07/08/2017 22:48:00 07/09/2017 15:03:00 DIS Inpatient EDDIE RINCON MD [facility] 4TH BILATERAL PE,CHEST PAIN [id number] 05/08/2017 14:39:00 05/08/2017 23:59:59 CLS Outpatient FELIZ GUY DO [facility] RAD BAKERS CYST LT KNEE [id number] 01/13/2017 16:00:00 01/14/2017 09:53:00 DIS Inpatient JAILENE HAN, MARI Simon [facility] ICU RLL PULMONARY EMBOLISM [id number] 01/11/2017 13:24:00 01/11/2017 16:28:00 DIS Emergency MARIANNA CLIFFORD [facility] ER LT LEG PAIN [id number] 06/06/2016 10:28:00 06/06/2016 23:59:59 CLS Outpatient CAMI GUY [facility] RAD SCREENING [id number] 04/05/2016 09:39:00 04/05/2016 23:59:59 CLS Outpatient FELIZ GUY DO [facility] D50.9 [id number] 02/24/2016 08:19:00 02/24/2016 11:30:00 DIS Outpatient MARI DENT MD [facility] ANEMIA [id number] 02/23/2016 12:46:00 02/23/2016 12:58:00 DIS Outpatient MARI DENT MD [facility] PREOP ANEMIA [id number] 01/14/2016 07:13:00 01/14/2016 23:59:59 CLS Outpatient FELIZ GUY DO [facility] RAD RT HIP PAIN [id number] 05/26/2015 08:39:00 05/26/2015 23:59:59 CLS Outpatient FELIZ GUY DO [facility] RAD SCREENING, OSTEOPOROSIS,MENOPAUSE [id number] 12/21/2014 10:25:00 12/21/2014 23:59:59 CLS Outpatient FELIZ GUY DO [facility] RAD SPONDYLOSIS, OSTEOARTHRITIS [id number] 03/16/2014 13:32:00 03/16/2014 23:59:59 CLS Outpatient FELIZ GUY DO [facility] RAD ROUTINE [id number] 09/29/2013 09:09:00 09/29/2013 23:59:59 CLS Outpatient CAMI GUY [facility] RAD LOWER LEFT CALF PAIN, HX DVT [id number] 06/18/2013 11:51:00 06/18/2013 23:59:59 CLS Outpatient RIDINGSCAMI APRN [facility] RAD COUGH [id number] 12/09/2012 09:11:00 12/09/2012 23:59:59 CLS Outpatient FELIZ GUY DO [facility] RAD SCREENING [id number] 05/24/2018 00:14:00 ACT Inpatient AJILENE HAN, MARI Simon [facility] 4TH ACUTE PANCREATITIS [id number] 03/18/2012 10:24:00 Document Registration [id number] 10/18/2011 08:53:00 Document Registration [id number] 03/16/2011 16:34:00 Document Registration [id number] 01/15/2011 13:57:00 Document Registration [id number] 11/16/2010 14:34:00 Document Registration [id number] 10/31/2010 17:54:00 Document Registration [id number] 10/31/2010 15:33:00 Document Registration [id number] 10/23/2010 05:36:00 Document Registration [id number] 10/18/2010 13:18:00 Document Registration [id number] 10/10/2010 15:09:00 Document Registration [id number] 10/06/2010 09:29:00 Document Registration [id number] 06/20/2010 14:37:00 Document Registration [id number] 06/16/2010 05:36:00 Document Registration [id number] 06/13/2010 15:47:00 Document Registration [id number] 10/31/2017 13:53:17 10/31/2017 23:59:59 DIS Outpatient Dana Mahmood [facility]
--- NOTE | 2018-05-24 00:53 | NUR ---
TINY PÉREZ admitted to room 423-1, with an admitting diagnosis of ACUTE PANCREATITIS, on 05/24/18 from ED via STRETCHER, accompanied by STAFF.TINY PÉREZ introduced to surroundings, call light, bed controls, phone, TV, temperature control, lights, meal times, smoking policy, visitor policy, side rail policy, bathrooms and showers. Patient Rights given to patient in the handbook. TINY PÉREZ verbalizes understanding that [facility] is not responsible for the loss or damage to any personal effects or valuables that are kept in the patients posession during their hospitalization. PLANS OF CARE DISCUSSED WITH THE PT AND PT VERBALIZES UNDERSTANDING. TINY PÉREZ verbalizes understanding of Interdisciplinary Patient Education. Patient and/or family were informed about the Rapid Response Team and its purpose.
[2018-05-24] MEDS ORDERED: NS IV 1000 ML 1,000 ML ONE (01:41)
[2018-05-24] MEDS ORDERED: ONDANSETRON 4 MG/2 ML (SDV) Z0FRAN IV PRN (02:45)
[2018-05-24] MEDS: NS IV 1000 ML 1,000 ML IV SCH ×4 (02:54→21:19)
--- NOTE | 2018-05-24 08:07 | Diagnostic Imaging Report ---
PROCEDURE: CT abdomen and pelvis without contrast. TECHNIQUE: Multiple contiguous axial images were obtained through the abdomen and pelvis without the use of intravenous contrast. DATE: May 23, 2018. COMPARISON: None. INDICATION: 72-year-old female, constipation for 8 days. FINDINGS: There are limitations for evaluation of the abdominal organs, neoplastic processes, abscess, and limited evaluation of the vasculature relating to the lack of intravenous contrast. There are mild linear opacities in the right lower lobe and left lower lobe likely relating to very mild atelectasis and/or scarring. The heart is not enlarged. There is no identified pericardial effusion. The liver is unremarkable in size and contour. The gallbladder is not seen and may be surgically absent. There is no identified intrahepatic or extrahepatic bile duct dilation. The main pancreatic duct is not abnormally dilated. There is inflammatory stranding adjacent to the pancreatic parenchyma most likely relating to acute pancreatitis. There is no identified well-marginated peripancreatic fluid collection. The spleen is normal in size. The adrenal glands are unremarkable. There is an exophytic left renal lesion on axial image 26 measuring up to 2.4 cm in size with internal attenuation of 7 Hounsfield units consistent with benign cysts. The urinary collecting systems are not distended. There is no identified renal or ureteral stone. The urinary bladder is unremarkable in appearance. The uterus is not seen and may be surgically absent. There is mild diverticulosis without evidence of acute diverticulitis. The appendix is not well seen. There are no findings to suggest acute appendicitis. There is a small to moderate-sized hiatal hernia. There is a duodenal diverticulum in the region of the second portion of duodenum. There is no free intraperitoneal air. There is no drainable fluid collection. There is no free pelvic fluid. There is moderate volume stool in the right colon. There are atherosclerotic calcifications. There is no identified abnormally enlarged lymph node in the abdomen or pelvis which meets CT size criteria for adenopathy. There is a right total hip prosthesis. There are degenerative changes of the spine. There is no identified acute bony abnormality. IMPRESSION: CT ABDOMEN AND PELVIS. 1. Findings compatible with acute pancreatitis. No peripancreatic fluid collection. 2. Small to moderate-sized hiatal hernia. 3. Moderate volume stool in the right colon. Dictated by: Dictated on workstation # [id number]
[2018-05-24] MEDS: APIXABAN 5 MG (ELIQUIS) TABLET PO SCH ×2 (09:57→20:38)
[2018-05-24] MEDS: PANTOPRAZOLE 40 MG (PROTONIX) VIAL IV SCH (09:58)
[2018-05-24] MEDS ORDERED: POLYETHYLENE GLYCOL 17 GM (MIRALAX) PACK PO NR (10:23)
--- NOTE | 2018-05-24 11:19 | History & Physical-Hospitalist ---
History of Present Illness HPI/Chief Complaint The patient is a 72-year-old white female who noted the onset of loss of appetite with left upper quadrant abdominal pain aggravated by eating on the of this month 3 days prior to admission. 8 days ago she did undergone what sounds like discectomy at the L5 level that she states went quite well and for which she had had no reported complications. She was only in the hospital for roughly 24 hours with an overnight stay that actually was the day prior to her surgery per her report. She's had minimal localized incisional back discomfort with resolution of her leg pain. She reports that had been a week since her last bowel movement with no lower quadrant abdominal discomfort. She had no nausea or vomiting. In the emergency room she had significant amylase and lipase elevation and CT findings compatible with uncomplicated acute pancreatitis. She is a past history of cholecystectomy and no known past history of previous pancreatitis. She's been on no new medications. She does not drink alcohol or smoke. She's had no reported night sweats chills or fever. Date Seen 05/24/18 Time Seen by a Provider: 10:00 Attending Physician Mari Dent MD PCP Sylvester Chirinos DO Referring Physician Date of Admission May 24, 2018 at 00:14 Home Medications & Allergies Home Medications Reviewed patient Home Medication Reconciliation performed by pharmacy medication reconciliations diploma pharmacy technician and/or nursing. Patients Allergies have been reviewed. Allergies Allergies Coded Allergies cephalexin (Unverified Allergy, Unknown, 02/24/16) meperidine (Unverified Allergy, Unknown, 02/24/16) morphine (Unverified Allergy, Unknown, 02/24/16) pentazocine (Unverified Allergy, Unknown, 02/24/16) Past Dpibfcw-Dvwhzf-Pyqbdz Hx Past Med/Social Hx: Reviewed and Corrections made Patient Social History Alcohol Use: Denies Use Recreational Drug Use: No Smoking Status: Never a Smoker 2nd Hand Smoke Exposure: No Recent Foreign Travel: No Contact w/other who traveled: No Recent Hopitalizations: No Recent Infectious Disease Expo: No Immunizations Up To Date Tetanus Booster (TDap): Unknown Date of Pneumonia Vaccine: May 24, 2016 Date of Influenza Vaccine: Apr 23, 2018 Seasonal Allergies Seasonal Allergies: No Past Medical History Surgeries: Appendectomy, Ear Surgery, Eye Surgery, Gallbladder, Hysterectomy, Joint Replacement, Orthopedic Cardiac: Deep Vein Thrombosis, Heart Murmur, High Cholesterol, Hypertension Reproductive: No Sexually Transmitted Disease: No HIV/AIDS: No Hysterectomy Gastrointestinal: C-Diff, Hiatal Hernia Musculoskeletal: Osteoporosis, Scoliosis HEENT: Cataract History of Blood Disorders: Yes (anemia) Adverse Reaction to Blood Joe: No Family History Cardiovascular disease 19 FATHER 19 MOTHER G8 SISTER FH: CHF (congestive heart failure) 19 FATHER 19 MOTHER FH: COPD (chronic obstructive pulmonary disease) 19 MOTHER FH: cancer G8 BROTHER G8 SISTER FH: liver disease G8 SISTER Kidney disease G8 SISTER No Pertinent Family Hx Review of Systems Constitutional: no symptoms reported, see HPI Cardiovascular: No no symptoms reported, No see HPI, No chest pain; edema ( Baseline per her report.); No Hx of Intervention, No palpitations, No syncope, No vascular heart diseas, No other Gastrointestinal: see HPI Physical Exam Physical Exam Vital Signs Vital Signs - First Documented 05/23/18 21:30 Temp 97.9 Pulse 68 Resp 16 B/P (MAP) 111/67 (82) Pulse Ox 96 O2 Delivery Room Air Capillary Refill : Less Than 3 Seconds Height, Weight, BMI Height: 4'11.00" Weight: 182lbs. 9.0oz. 82.769775eg; 34.9 BMI Method:Stated General Appearance: No Apparent Distress, Obese HEENT: PERRL/EOMI, TMs Normal, Pharynx Normal Respiratory: Chest Non Tender, Lungs Clear, Normal Breath Sounds, No Accessory Muscle Use, No Respiratory Distress Cardiovascular: Regular Rate, Rhythm, No Edema, No Gallop, No JVD, No Murmur, Normal Peripheral Pulses Gastrointestinal: Normal Bowel Sounds, No Organomegaly, No Pulsatile Mass, Soft , Other (The gastric and left upper quadrant pain are noted with guarding in these locations but no evidence for rebound. Bowel sounds are positive without significant distention.) Extremity: Normal Capillary Refill, Normal Inspection, Normal Range of Motion, Non Tender, No Calf Tenderness, No Pedal Edema Neurologic/Psychiatric: Alert, Oriented x3, No Motor/Sensory Deficits Results Results/Procedures Labs Laboratory Tests 05/23/18 22:17 05/24/18 00:00 Patient resulted labs reviewed. Assessment/Plan Admission Diagnosis 1. First reported documented episode of acute pancreatitis in individual with past cholecystectomy no alcohol consumption and no reported family history for pancreatitis. Did advise that she see a crane service technician as an outpatient. Will advance to clear liquids and continue IV fluid rehydration. 2. Recent what sounds like possible microdiscectomy without complication. I do not know what anesthetic she received or whether or not there could be any association with what she received during her surgery and pancreatitis. 3. Constipation likely due to recent surgery possible pain medication pain as well as pancreatitis will initiate MiraLAX. Admission Status: Inpatient Order (span 2 midnights) Reason for Inpatient Admission: As for admission diagnosis Clinical Quality Measures DVT/VTE Risk/Contraindication: Risk Factor Score Per Nursin RFS Level Per Nursing on Admit: 3=High MARI DENT MD May 24, 2018 11:19
[2018-05-24] MEDS ORDERED: CYAN1TAB7 SL (11:45)
[2018-05-24] MEDS ORDERED: APIX5TAB PO (11:45)
[2018-05-24] MEDS ORDERED: CHOL5000 PO (11:46)
--- NOTE | 2018-05-24 11:46 | NUR ---
SPOKE TO PATIENT SHE STATED HER MEDICATIONS.
[2018-05-24] MEDS ORDERED: DEXA4TAB PO (15:52)
[2018-05-24] MEDS ORDERED: ACETAMINOPHEN 500 MG TAB (TYLENOL) PO PRN (16:15)
[2018-05-24] MEDS ORDERED: PATIENT MAY USE OWN MED,SINGLE MED PO SCH (16:15)
[2018-05-24] MEDS: DEXAMETHASONE 4 MG TAB (DECADRON) PO SCH (16:26)
[2018-05-24] MEDS ORDERED: POLYETHYLENE GLYCOL 17 GM (MIRALAX) PACK PO SCH (21:00)
[2018-05-25 00:40] VITALS: BP 114/57
[2018-05-25 04:00] VITALS: BP 135/62
[2018-05-25 08:00] VITALS: BP 133/64
[2018-05-25] MEDS: DEXAMETHASONE 4 MG TAB (DECADRON) PO SCH (08:04)
[2018-05-25] MEDS: PANTOPRAZOLE 40 MG (PROTONIX) VIAL IV SCH (08:04)
[2018-05-25] MEDS: APIXABAN 5 MG (ELIQUIS) TABLET PO SCH (08:05)
[2018-05-25] MEDS: NS IV 1000 ML 1,000 ML IV SCH (08:06)
[2018-05-25 08:46] LABS: BASOPHILS % (AUTO) 0 % (0-10); EOSINOPHILS % (AUTO) 0 % (0-10); HEMATOCRIT 39 % (35-52); HEMOGLOBIN 12.7 G/DL (11.5-16.0); LYMPHOCYTES # (AUTO) 0.9 X 10^3 (1.0-4.0); LYMPHOCYTES % (AUTO) 10 % (12-44); MEAN CORPUSCULAR HEMOGLOBIN 29 PG (25-34); MEAN CORPUSCULAR HGB CONC 33 G/DL (32-36); MEAN CORPUSCULAR VOLUME 88 FL (80-99); MEAN PLATELET VOLUME 8.6 FL (7.4-10.4); MONOCYTES # (AUTO) 0.5 X 10^3 (0.0-1.0); MONOCYTES % (AUTO) 6 % (0-12); NEUTROPHILS # (AUTO) 7.5 X 10^3 (1.8-7.8); NEUTROPHILS % (AUTO) 83 % (42-75); PLATELET COUNT 304 10^3/uL (130-400); RED CELL DISTRIBUTION WIDTH 13.9 % (10.0-14.5)
[2018-05-25] MEDS ORDERED: DEXAMETHASONE 4 MG TAB (DECADRON) PO SCH (09:00)
[2018-05-25 09:04] LABS: ALANINE AMINOTRANSFERASE 19 U/L (0-55); ALBUMIN 3.1 GM/DL (3.2-4.5); ALKALINE PHOSPHATASE 66 U/L (40-136); BILIRUBIN,TOTAL 0.6 MG/DL (0.1-1.0); BUN/CREATININE RATIO 22; CALCIUM 8.6 MG/DL (8.5-10.1); CARBON DIOXIDE 18 MMOL/L (21-32); CHLORIDE 107 MMOL/L (98-107); CREATININE SERUM 0.72 MG/DL (0.60-1.30); GFR ESTIMATED > 60; GLUCOSE 106 MG/DL (70-105); LIPASE 139 U/L (8-78); POTASSIUM 4.1 MMOL/L (3.6-5.0); SODIUM 133 MMOL/L (135-145); TOTAL PROTEIN 5.5 GM/DL (6.4-8.2)
--- NOTE | 2018-05-25 10:17 | Discharge Summary-Hospitalist ---
Diagnosis/Chief Complaint Date of Admission May 24, 2018 at 00:14 Date of Discharge Discharge Date: May 25, 2018 Admission Diagnosis 1. First reported documented episode of acute pancreatitis in individual with past cholecystectomy no alcohol consumption and no reported family history for pancreatitis. Did advise that she see a chief merchandising officer as an outpatient. Will advance to clear liquids and continue IV fluid rehydration. 2. Recent what sounds like possible microdiscectomy without complication. I do not know what anesthetic she received or whether or not there could be any association with what she received during her surgery and pancreatitis. 3. Constipation likely due to recent surgery possible pain medication pain as well as pancreatitis will initiate MiraLAX. Discharge Summary Discharge Physical Exam Allergies: Coded Allergies: cephalexin (Unverified Allergy, Unknown, 02/24/16) meperidine (Unverified Allergy, Unknown, 02/24/16) morphine (Unverified Allergy, Unknown, 02/24/16) pentazocine (Unverified Allergy, Unknown, 02/24/16) Vitals & I&Os Vital Signs Date Time Temp Pulse Resp B/P (MAP) Pulse Ox O2 Delivery O2 Flow Rate FiO2 05/25/18 08:00 97 Room Air 05/25/18 08:00 96.8 55 14 133/64 (87) General Appearance: No Apparent Distress, WD/WN Respiratory: Chest Non Tender, Lungs Clear, Normal Breath Sounds, No Accessory Muscle Use, No Respiratory Distress Cardiovascular: Regular Rate, Rhythm, No Edema, No Gallop, No JVD, No Murmur, Normal Peripheral Pulses Gastrointestinal: Normal Bowel Sounds, No Organomegaly, No Pulsatile Mass, Soft , Other (Mild epigastric and left upper quadrant discomfort to palpation without rebound or guarding significantly improved from yesterday) Hospital Course The patient is a 72-year-old white female who noted the onset of loss of appetite with left upper quadrant abdominal pain aggravated by eating on the of this month 3 days prior to admission. 8 days ago she did undergone what sounds like discectomy at the L5 level that she states went quite well and for which she had had no reported complications. She was only in the hospital for roughly 24 hours with an overnight stay that actually was the day prior to her surgery per her report. She's had minimal localized incisional back discomfort with resolution of her leg pain. She reports that had been a week since her last bowel movement with no lower quadrant abdominal discomfort. She had no nausea or vomiting. In the emergency room she had significant amylase and lipase elevation and CT findings compatible with uncomplicated acute pancreatitis. She has a past history of cholecystectomy and no known past history of previous pancreatitis. She's been on no new medications. She does not drink alcohol or smoke. She's had no reported night sweats chills or fever. Hospital course: Patient was admitted to the floor started on IV fluids and bowel rest. She required no further narcotic therapy of which she likes to try to avoid as she has had hydrocodone in the past and it made her feel a little wired and she also lost her appetite but does not recall overt nausea or vomiting. Her lipase level was down from over 600-130 the day of her discharge. She reported no abdominal pain and only had mild epigastric and left upper quadrant pain to palpation the morning of her discharge significantly improved from yesterday. Abdomen was soft. Discussed the importance especially over the next several weeks of a low-fat heart healthy diet and also discussed the long-term health benefits irrespective of pancreatitis. Considering history of narcotic therapy she will just be discharged on Tylenol on a when necessary basis. Should she develop recurrence of severe abdominal pain she is to return to the emergency room. She is advised to call Dr. Chirinos's office in the morning and set up an appointment within 1-2 weeks. There will be no changes in her medication from admission meds. Labs (last 24 hrs) Laboratory Tests 05/25/18 08:35: White Blood Count 9.0, Red Blood Count 4.37, Hemoglobin 12.7, Hematocrit 39, Mean Corpuscular Volume 88, Mean Corpuscular Hemoglobin 29, Mean Corpuscular Hemoglobin Concent 33, Red Cell Distribution Width 13.9, Platelet Count 304, Mean Platelet Volume 8.6, Neutrophils (%) (Auto) 83H, Lymphocytes (%) (Auto) 10L , Monocytes (%) (Auto) 6, Eosinophils (%) (Auto) 0, Basophils (%) (Auto) 0, Neutrophils # (Auto) 7.5, Lymphocytes # (Auto) 0.9L, Monocytes # (Auto) 0.5, Eosinophils # (Auto) 0.0, Basophils # (Auto) 0.0, Sodium Level 133L, Potassium Level 4.1, Chloride Level 107, Carbon Dioxide Level 18L, Anion Gap 8, Blood Urea Nitrogen 16, Creatinine 0.72, Estimat Glomerular Filtration Rate > 60, BUN/ Creatinine Ratio 22, Glucose Level 106H, Calcium Level 8.6, Corrected Calcium 9.3, Total Bilirubin 0.6, Aspartate Amino Transf (AST/SGOT) 16, Alanine Aminotransferase (ALT/SGPT) 19, Alkaline Phosphatase 66, Total Protein 5.5L, Albumin 3.1L, Lipase 139H Patient resulted labs reviewed. Pending Labs Laboratory Tests 05/25/18 08:35: White Blood Count 9.0, Red Blood Count 4.37, Hemoglobin 12.7, Hematocrit 39, Mean Corpuscular Volume 88, Mean Corpuscular Hemoglobin 29, Mean Corpuscular Hemoglobin Concent 33, Red Cell Distribution Width 13.9, Platelet Count 304, Mean Platelet Volume 8.6, Neutrophils (%) (Auto) 83, Lymphocytes (%) (Auto) 10, Monocytes (%) (Auto) 6, Eosinophils (%) (Auto) 0, Basophils (%) (Auto) 0, Neutrophils # (Auto) 7.5, Lymphocytes # (Auto) 0.9, Monocytes # (Auto) 0.5, Eosinophils # (Auto) 0.0, Basophils # (Auto) 0.0, Sodium Level 133, Potassium Level 4.1, Chloride Level 107, Carbon Dioxide Level 18, Anion Gap 8, Blood Urea Nitrogen 16, Creatinine 0.72, Estimat Glomerular Filtration Rate > 60, BUN/ Creatinine Ratio 22, Glucose Level 106, Calcium Level 8.6, Corrected Calcium 9.3 , Total Bilirubin 0.6, Aspartate Amino Transf (AST/SGOT) 16, Alanine Aminotransferase (ALT/SGPT) 19, Alkaline Phosphatase 66, Total Protein 5.5, Albumin 3.1, Lipase 139 Discussion & Recommendations Discharge Planning: >30 minutes discharge planning Discharge Home Medications: Active Scripts Active Dexamethasone 4 Mg Tablet 4 Mg PO DAILY 3 Days Reported Vitamin D3 (Cholecalciferol (Vitamin D3)) 5,000 Unit Capsule 5,000 Unit PO DAILY B-12 5,000 Mcg Sublingual Tab (Cyanocobalamin/Cobamamide) 1 Each Tab.subl 1 Each SL DAILY Eliquis (Apixaban) 5 Mg Tablet 5 Mg PO BID Losartan Potassium 50 Mg Tablet 50 Mg PO DAILY Omeprazole 20 Mg Capsule.dr 20 Mg PO DAILY Montelukast Sodium 10 Mg Tablet 10 Mg PO DAILY Simvastatin 10 Mg Tablet 10 Mg PO HS Instructions to patient/family Please see electronic discharge instructions given to patient. Clinical Quality Measures DVT/VTE Risk/Contraindication: Risk Factor Score Per Nursin RFS Level Per Nursing on Admit: 3=High Copy Copies To 1: FELIZ CHIRINOS MARK D MD May 25, 2018 10:17
[2018-05-25 12:00] VITALS: BP 121/69
[2018-05-25 15:08] VITALS: BP 121/69
--- NOTE | 2018-05-27 10:59 | Physician Query Clarification ---
PQ-Intro New Diagnosis Admission/Discharge Admission Date: May 24, 2018 at 00:14 Discharge Date: May 25, 2018 at 15:30 The medical record reflects the following clinical scenario: History/Risk Factors: Acute pancreatitis Clinical Findings: Sodium 133 Treatment: IV sodium cloride Question: What condition best reflects the above clinical scenario? Please document below. 1. Hyponatremia 2. Hyponatremia not significant and doesn't warrant coding 3. Other, with explanation of the clinical findings. 4. Clinically undetermined, no explanation for the clinical findings. PHYSICIAN RESPONSE What condition reflects above: 2 In responding to this query, please exercise your independent professional judgment. The purpose of this communication is to more accurately reflect the complexity of your patients condition. The fact that a question is asked does not imply that any particular answer is desired or expected. Thank you for your timely response to this clarification. Requestors name: Keyona THIS PHYSICIAN QUERY FORM IS A PERMANENT PART OF THE MEDICAL RECORD KEYONA OSORIO May 27, 2018 10:59 MARI DENT MD May 30, 2018 10:32
== END 2018-05-25 15:30 | disposition home or self-care (01) | DRG 440 ==
LOC: EDUNIT# 21:26 → ER 21:27 → 4TH 05-24 00:14
PROVIDERS: ADMIT Internal Medicine; ATTEND Internal Medicine
DX: K85.90 Acute pancreatitis without necrosis or infection, unspecified (principal); K59.00 Constipation, unspecified; I10 Essential (primary) hypertension; E78.00 Pure hypercholesterolemia, unspecified; R01.1 Cardiac murmur, unspecified; K44.9 Diaphragmatic hernia without obstruction or gangrene; M81.0 Age-related osteoporosis without current pathological fracture; M41.9 Scoliosis, unspecified; Z86.711 Personal history of pulmonary embolism; Z86.718 Personal history of other venous thrombosis and embolism
CPT/HCPCS: 36415; 74176; 80048; 80053; 80076; 82150; 82947; 83690; 85007; 85025; 85027; 86141; 96361; 96374; 96376

== ENCOUNTER → 2018-08-01 | Outpatient (CLI) | payer MEDICARE, OTHER ==
[~2018-08-01] MED LIST changes: +CATHETER FLUSH 10 ML SYR IV PRN; +CHOL5000 PO; +CYAN1TAB7 SL; +DEXA4TAB PO; +REGADENOSON 0.4 MG/5 ML SYR (LEXISCAN) IV ONE
[2018-08-01 08:01] VITALS: BP 155/84
[2018-08-01 08:13] VITALS: BP 130/99
--- NOTE | 2018-08-01 10:47 | STRESS TEST ---
DATE OF SERVICE: 08/01/2018 NUCLEAR MYOVIEW REPORT REFERRING PHYSICIAN: Sylvester Chirinos DO. SUMMARY: The patient was injected 10.16 mCi of technetium-99 Myoview and the resting images were obtained with peak stress level, a 31.7 mCi of technetium-99 Myoview were injected and the stress images were acquired, the resting and stress images were reviewed and compared in the short axis, horizontal long axis and vertical long axis views. Review of the images showed breast attenuation with mild decreased uptake at the basal to mid anterior lateral wall with subtle reversibility and no significant ischemia was noted. SSS is 3, SDS 3 and TID value 1.11. On the gated images, the left ventricle appeared to be normal size with normal contractility. Calculated ejection fraction of 85%. CONCLUSION: 1. Typical female pattern with breast attenuation with no significant ischemia or infarction. 2. Normal left ventricular size with normal contractility. Calculated ejection fraction of 85%. Job ID: [id number] DocumentID: [id number] Dictated Date: 08/01/2018 09:31:08 Shank Tapper Date: 08/01/2018 10:46:32 Dictated By: FRANCISCA MENDOZA MD
== END ==
LOC: CARD 06:31
PROVIDERS: ATTEND Internal Medicine
DX: R06.00 Dyspnea, unspecified (principal)
CPT/HCPCS: 78452; 93017

== ENCOUNTER → 2018-10-28 | Outpatient (CLI) | payer MEDICARE, OTHER ==
[~2018-10-28] MED LIST changes: -CATHETER FLUSH 10 ML SYR IV PRN; -REGADENOSON 0.4 MG/5 ML SYR (LEXISCAN) IV ONE
--- NOTE | 2018-10-28 10:33 | Diagnostic Imaging Report ---
PROCEDURE: US left lower extremity venous. TECHNIQUE: Multiple Real-time grayscale images were obtained over the left lower extremity in various projections. Additional duplex Doppler and color Doppler images were also obtained. INDICATION: History of deep venous thrombosis and Hatfield's cyst. COMPARISON: 07/09/2017. FINDINGS: The left common femoral, femoral, popliteal, and tibial veins demonstrate normal response to compression, augmentation, and Valsalva. There is some dilatation of the popliteal vein which is also duplicated. There is a Hatfield's cyst measuring up to 6 x 2.5 x 3.8 cm. IMPRESSION: No evidence of deep venous thrombosis in the left lower extremity. Hatfield's cyst which is slightly larger when compared to the prior examination. Dictated by: Dictated on workstation # [id number]
== END ==
LOC: RAD 08:48
PROVIDERS: ATTEND Internal Medicine
DX: M66.0 Rupture of popliteal cyst (principal); Z86.718 Personal history of other venous thrombosis and embolism

== ENCOUNTER → 2018-11-11 | Outpatient (CLI) | payer MEDICARE, OTHER ==
--- NOTE | 2018-11-11 13:41 | Diagnostic Imaging Report ---
INDICATION: Dyspnea. TIME OF EXAM: 01:14 p.m. COMPARISON: Correlation is made with prior study from 10/30/2017. FINDINGS: The heart size is normal. The pulmonary vascularity is unremarkable. The lungs are clear. No infiltrate, effusion or pneumothorax is detected. IMPRESSION: No acute cardiopulmonary process is detected. Dictated by: Dictated on workstation # [id number]
--- NOTE | 2018-11-11 20:26 | Diagnostic Imaging Report ---
INDICATION: Routine screening. Comparison is made with prior mammograms from 10/25/2017 and 06/06/2016. 2-D and 3-D bilateral screening mammography was performed. The current study was also evaluated with a Computer Aided Detection (CAD) system. 3-D tomosynthesis was also performed and reviewed. FINDINGS: Scattered fibroglandular densities are identified bilaterally. There are benign calcifications bilaterally. The parenchymal pattern is stable. No dominant mass or malignant-appearing microcalcifications are seen. The axillae are unremarkable. IMPRESSION: No mammographic features suspicious for malignancy are identified. ACR BI-RADS Category 2: Benign findings. Result letter will be mailed to the patient. Note: At least 10% of breast cancer is not imaged by mammography. Dictated by: Dictated on workstation # [id number]
== END ==
LOC: RAD 12:49
PROVIDERS: ATTEND Internal Medicine
DX: Z12.31 Encounter for screening mammogram for malignant neoplasm of breast (principal); M66.0 Rupture of popliteal cyst; M99.03 Segmental and somatic dysfunction of lumbar region; M99.04 Segmental and somatic dysfunction of sacral region; R06.00 Dyspnea, unspecified
CPT/HCPCS: 71046; 77067

== ENCOUNTER → 2018-11-11 | Outpatient (CLI) | payer MEDICARE, OTHER ==
--- NOTE | 2018-11-11 16:38 | Diagnostic Imaging Report ---
PROCEDURE: MRI left joint lower extremity without contrast. TECHNIQUE: Multiplanar, multisequence [id number] MRI of the left lower extremity was accomplished. INDICATION: Left knee pain. Medial meniscus injury. COMPARISON: None. FINDINGS: No acute fracture or dislocation is seen in the left knee. Alignment appears normal. There is a large left knee joint effusion. There are tricompartmental degenerative changes, which are moderate in the medial and patellofemoral compartments and marked in the lateral compartment. The articular cartilage in the patellofemoral compartment demonstrates mild thinning and surface irregularity with no full-thickness defects. The articular cartilage in the medial compartment demonstrates mild thinning and surface irregularity with heterogeneity, but no large full-thickness defect seen. The articular cartilage in the lateral compartment demonstrates full-thickness cartilage loss at the weightbearing aspect. The medial meniscus demonstrates a radial tear at the posterior horn with partial extrusion and intrasubstance degeneration. There is extensive maceration and complex tearing of the lateral meniscus which is displaced laterally into the meniscofemoral recess. The anterior and posterior cruciate ligaments are intact. The medial collateral ligament is intact. The lateral collateral ligamentous complex appears intact. The extensor mechanism is intact. The medial and lateral retinacula are intact. There is a moderate-sized Hatfield's cyst. There is an additional cyst in the soft tissues of the posteromedial left thigh, which measures 4.0 x 2.5 cm axially, and 4.3 cm craniocaudal. It is unclear if this represents extension of the Hatfield's cyst or possibly a synovial cyst from the vastus medialis tendon. There is mild aneurysmal dilatation of the popliteal vein. IMPRESSION: 1. Extensive tearing of the lateral meniscus in the left knee with the body flipped into the meniscofemoral recess. Radial tear at the posterior medial meniscus. 2. Moderate-sized Hatfield's cyst. Additional multilobulated cystic structure in the posteromedial thigh, may represent extension of the Hatfield's cyst versus a synovial cyst. 3. Tricompartmental degenerative changes and cartilage loss, most severe in the lateral compartment. 4. Large left knee joint effusion. Dictated by: Dictated on workstation # [id number]
== END ==
LOC: RAD 12:53
PROVIDERS: ATTEND Orthopaedic Surgery
DX: S83.282A Other tear of lateral meniscus, current injury, left knee, initial encounter (principal); S83.242A Other tear of medial meniscus, current injury, left knee, initial encounter; M71.22 Synovial cyst of popliteal space [Baker], left knee; M17.12 Unilateral primary osteoarthritis, left knee; M67.472 Ganglion, left ankle and foot
CPT/HCPCS: 73721

== ENCOUNTER → 2019-01-14 | Outpatient (CLI) | payer MEDICARE, OTHER ==
[~2019-01-14] MED LIST changes: -CYAN500T2 PO; +CYAN500T62 PO; -OMEP10CA4 PO; +OMEP10CA5 PO; -OMEP20CA12 PO; +OMEP20CA13 PO; +RT-ALBUTEROL SULF 2.5 MG/3 ML PRE-MIX VIAL INH ONE
== END ==
LOC: RT 07:59
PROVIDERS: ATTEND Internal Medicine
DX: R06.00 Dyspnea, unspecified (principal)
CPT/HCPCS: 94060; 94726; 94729

== ENCOUNTER 2019-10-09 22:01 | Emergency (ER) | payer MEDICARE, OTHER ==
[~2019-10-09] VITALS: Ht 149.9 cm; Wt 83.6 kg
[~2019-10-09 22:01] MED LIST changes: -MONT10TA24 PO; +MONT10TA26 PO; -OMEP20CA13 PO; +OMEP20CA18 PO; -RT-ALBUTEROL SULF 2.5 MG/3 ML PRE-MIX VIAL INH ONE; +SIMV10TA26 PO
[2019-10-09 22:05] VITALS: BP 137/76
--- NOTE | 2019-10-09 22:10 | NUR ---
pt requesting us of rle for c/o possible blood clot. erp informed pt ultrasound unavailable pt verbalizes anger with hospital not having ultrasound capability et. states we're waisting her time. treatment offered by erp et. pt refused.
[2019-10-09] MEDS ORDERED: OMEP40CA27 (22:12)
--- NOTE | 2019-10-09 22:19 | ED Lower Extremity ---
General Chief Complaint: Lower Extremity Stated Complaint: R LEG PAIN/KNOT Source: patient History of Present Illness Date Seen by Provider: Oct 09, 2019 Time Seen by Provider: 22:03 Initial Comments PT ARRIVES VIA POV FROM HOME PT WANTS CHECKED FOR BLOOD CLOT STATES SHE HAS BEEN HAVING RIGHT CALF PAIN AND A "KNOT" IN HER RIGHT CALF FOR THE LAST 3 DAYS--SYMPTOMS NO DIFFERENT TONIGHT IN ANY WAY STATES IT ONLY HURTS A LITTLE NO SWELLING TO LEG NO PARESTHESIAS OR MOTOR DEFICITS NO INJURY TO LEG NO CHEST PAIN OR SHORTNESS OF BREATH NO DIZZINESS OR SYNCOPE NO RASH TO LEG PT HAS HISTORY OF DVT'S AND P.E.'S AND HAS BEEN ON ELIQUIS FR 5 YEARS STATES SHE HAS HAD BLOOD CLOTS EVEN WHEN SHE HAS BEEN ON BLOOD THINNERS HAS NOT ATTEMPTED TO CONTACT HER PCP FOR THIS PROBLEM PCP: DR. GUY Allergies and Home Medications Allergies Coded Allergies: cephalexin (Unverified Allergy, Unknown, 02/24/16) meperidine (Unverified Allergy, Unknown, 02/24/16) morphine (Unverified Allergy, Unknown, 02/24/16) pentazocine (Unverified Allergy, Unknown, 02/24/16) Home Medications Apixaban 5 Mg Tablet, 5 MG PO BID, (Reported) Cholecalciferol (Vitamin D3) 5,000 Unit Capsule, 5,000 UNIT PO DAILY, (Reported) Cyanocobalamin/Cobamamide 1 Each Tab.subl, 1 EACH SL DAILY, (Reported) Dexamethasone 4 Mg Tablet, 4 MG PO DAILY Prescribed by: MARLENI ANDERSEN on 05/24/18 1552 Losartan Potassium 50 Mg Tablet, 50 MG PO DAILY, (Reported) Montelukast Sodium 10 Mg Tablet, 10 MG PO DAILY, (Reported) Omeprazole 20 Mg Capsule.dr, 20 MG PO DAILY, (Reported) Simvastatin 10 Mg Tablet, 10 MG PO HS, (Reported) Patient Home Medication List Home Medication List Reviewed: Yes Review of Systems Constitutional: no symptoms reported; No chills, No diaphoresis, No dizziness, No fever Respiratory: no symptoms reported Cardiovascular: no symptoms reported Gastrointestinal: no symptoms reported Genitourinary: no symptoms reported Musculoskeletal: see HPI Skin: no symptoms reported; No rash Psychiatric/Neurological: No Symptoms Reported Past Ddjivce-Czgxom-Hpyijs Hx Past Med/Social Hx: Reviewed and Corrections made Patient Social History 2nd Hand Smoke Exposure: No Recent Foreign Travel: No Contact w/Someone Who Travel: No Recent Hopitalizations: No Immunizations Up To Date Tetanus Booster (TDap): Unknown Date of Pneumonia Vaccine: May 24, 2016 Date of Influenza Vaccine: Apr 23, 2018 Seasonal Allergies Seasonal Allergies: No Past Medical History Surgeries: Yes (R Total hip, Right total knee, right foot, hiatal hernia) Appendectomy, Ear Surgery, Eye Surgery, Gallbladder, Hysterectomy, Joint Replacement, Orthopedic Respiratory: Yes Pulmonary Embolism Cardiac: Yes Deep Vein Thrombosis, Heart Murmur, High Cholesterol, Hypertension Neurological: No 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 Sexually Transmitted Disease: No HIV/AIDS: No Genitourinary: No Gastrointestinal: Yes C-Diff, Hiatal Hernia Musculoskeletal: Yes (spinal stenosis) Osteoporosis, Scoliosis Endocrine: No HEENT: Yes Cataract Cancer: No Psychosocial: No Integumentary: No Blood Disorders: Yes (anemia) Adverse Reaction/Blood Tranf: No Family Medical History Cardiovascular disease 19 FATHER 19 MOTHER G8 SISTER FH: CHF (congestive heart failure) 19 FATHER 19 MOTHER FH: COPD (chronic obstructive pulmonary disease) 19 MOTHER FH: cancer G8 BROTHER G8 SISTER FH: liver disease G8 SISTER Kidney disease G8 SISTER No Pertinent Family Hx Physical Exam Vital Signs Vital Signs - First Documented 10/09/19 22:05 Temp 36.4 Pulse 86 Resp 18 B/P (MAP) 137/76 (96) Pulse Ox 96 O2 Delivery Room Air Capillary Refill : Height, Weight, BMI Height: 4'11.00" Weight: 182lbs. 9.0oz. 82.885764hy; 34.9 BMI Method:Stated General Appearance: WD/WN, no apparent distress, other (AMBULATES IN ON OWN ) Progress/Results/Core Measures Results/Orders Vital Signs/I&O 10/09/19 22:05 Temp 36.4 Pulse 86 Resp 18 B/P (MAP) 137/76 (96) Pulse Ox 96 O2 Delivery Room Air Progress Progress Note : Progress Note INFORMED PT THAT WE DID NOT HAVE ULTRASOUND AVAILABLE HERE UNTIL Saturday10/12/19 OFFERED TO TREAT EMPIRICALLY WITH LOVENOX AND ARRANGE FOR OUTPATIENT ULTRASOUND ON SATURDAY PT REFUSES ALL TESTS, ALL TREATMENT AND REFUSES ANY OUTPATIENT TESTS. OFFERED TO TRANSFER TO ANOTHER FACILITY THAT HAS 24 HOUR ULTRASOUND CAPABILITY, AND SHE REFUSES THIS ALSO. AMA PAPERS SIGNED Departure Impression Primary Impression: Right calf pain Additional Impression: Left against medical advice Disposition: 07 AGAINST MEDICAL ADVICE Condition: Against Medical Advice Departure-Patient Inst. Referrals: FELIZ GUY DO (PCP/Family) Primary Care Physician Patient Instructions: Leaving Against Medical Advice Add. Discharge Instructions: FOLLOW UP WITH DR GUY ON SATURDAY RETURN TO ER IF SYMPTOMS WORSEN All discharge instructions reviewed with patient and/or family. Voiced und erstanding. RICHARD LOZOYA DO Oct 09, 2019 22:19
== END 2019-10-09 22:31 | disposition left against medical advice (07) ==
LOC: EDUNIT# 22:01 → ER 22:02
DX: M79.661 Pain in right lower leg (principal); I10 Essential (primary) hypertension; E78.00 Pure hypercholesterolemia, unspecified; Z86.711 Personal history of pulmonary embolism; Z86.718 Personal history of other venous thrombosis and embolism; Z79.01 Long term (current) use of anticoagulants; Z88.1 Allergy status to other antibiotic agents; Z88.5 Allergy status to narcotic agent; Z88.8 Allergy status to other drugs, medicaments and biological substances; Z79.52 Long term (current) use of systemic steroids; Z82.49 Family history of ischemic heart disease and other diseases of the circulatory system
CPT/HCPCS: 99283

== ENCOUNTER → 2020-05-25 | Outpatient (CLI) | payer MEDICARE, OTHER ==
[~2020-05-25] MED LIST changes: -CLIN150C17; +CLIN150C18; -CYAN500T62 PO; +CYAN500T8 PO; -MONT10TA26 PO; +MONT10TA97 PO; +OMEP40CA27
--- NOTE | 2020-05-25 15:50 | Diagnostic Imaging Report ---
INDICATION: Routine screening. COMPARISON: 11/11/2018 and 10/25/2017. TECHNIQUE: 2D and 3D bilateral screening mammography was performed with CAD. FINDINGS: Scattered fibroglandular densities are identified bilaterally. The overall parenchymal pattern is stable. There are benign calcifications bilaterally. No mass or malignant appearing microcalcifications are seen. The axillae are unremarkable. IMPRESSION: No mammographic features suspicious for malignancy are identified. ACR BI-RADS Category 2: Benign findings. Result letter will be mailed to the patient. Note: At least 10% of breast cancer is not imaged by mammography. Dictated by: Dictated on workstation # [id number]
== END ==
LOC: RAD 14:51
PROVIDERS: ATTEND Internal Medicine
DX: Z12.31 Encounter for screening mammogram for malignant neoplasm of breast (principal)
CPT/HCPCS: 77063; 77067

== ENCOUNTER → 2021-06-28 | Outpatient (CLI) | payer MEDICARE, OTHER ==
[~2021-06-28] MED LIST changes: -CLIN150C18; +CLIN150C20; -LACT10SO PO; +LACT10SO3 PO; -METO10TA3 PO; +MONT-40 PO; -MONT10TA97 PO; +MTC10T PO; -OMEP40CA27; +OMEP40CA6
--- NOTE | 2021-06-29 09:21 | Diagnostic Imaging Report ---
INDICATION: Routine screening. COMPARISON: 05/25/2020 and 11/11/2018. TECHNIQUE: 2D and 3D bilateral screening mammography was performed with CAD. FINDINGS: Scattered fibroglandular densities are identified bilaterally. The parenchymal pattern is stable. No mass or malignant-appearing microcalcifications are seen. There are benign calcifications bilaterally. The axillae are unremarkable. IMPRESSION: No mammographic features suspicious for malignancy are identified. ACR BI-RADS Category 2: Benign findings. Result letter will be mailed to the patient. Note: At least 10% of breast cancer is not imaged by mammography. Dictated by: Dictated on workstation # [id number]
== END ==
LOC: RAD 15:45
PROVIDERS: ATTEND Internal Medicine
DX: Z12.31 Encounter for screening mammogram for malignant neoplasm of breast (principal)
CPT/HCPCS: 77063; 77067

== ENCOUNTER → 2022-04-10 | Outpatient (CLI) | payer MEDICARE, OTHER ==
[~2022-04-10] MED LIST changes: -TRIA1CAP4 PO; +TRIA1CAP84 PO
== END ==
LOC: CARD 13:31
PROVIDERS: ATTEND Internal Medicine Cardiovascular Disease
DX: I51.7 Cardiomegaly (principal); I35.1 Nonrheumatic aortic (valve) insufficiency
CPT/HCPCS: 93306

== ENCOUNTER → 2022-08-22 | Outpatient (CLI) | payer MEDICARE, OTHER ==
--- NOTE | 2022-08-22 12:48 | Diagnostic Imaging Report ---
INDICATION: Routine screening. COMPARISON: 06/28/2021 and 05/25/2020. TECHNIQUE: 2D and 3D bilateral screening mammography was performed with CAD. FINDINGS: Scattered fibroglandular densities are identified bilaterally. The parenchymal pattern is stable. No mass or malignant-appearing microcalcifications are seen. There are benign calcifications bilaterally. The axillae are unremarkable. IMPRESSION: No mammographic features suspicious for malignancy are identified. ACR BI-RADS Category 2: Benign findings. Result letter will be mailed to the patient. Note: At least 10% of breast cancer is not imaged by mammography. Dictated by: Dictated on workstation # [id number]
== END ==
LOC: RAD 10:26
PROVIDERS: ATTEND Internal Medicine
DX: Z12.31 Encounter for screening mammogram for malignant neoplasm of breast (principal)
CPT/HCPCS: 77063; 77067

== ENCOUNTER → 2023-02-26 | Outpatient (CLI) | payer MEDICARE, OTHER ==
--- NOTE | 2023-02-26 10:40 | Diagnostic Imaging Report ---
INDICATION: Postmenopausal female. Right hip replacement COMPARISON: 05/26/2015 FINDINGS: AP Spine L2-L4: [BMD (g/cm2): 1.073] [T-Score: -1.1] [Z-Score: 0.1] [BMD Previous: 1.172] [BMD % Change: -8.4*] LT Hip Neck: [BMD (g/cm2): 0.750] [T-Score: -2.1] [Z-Score: -0.4] LT Hip Total: [BMD (g/cm2):0.844] [T-Score:-1.3] [Z-Score: 0.1] [BMD Previous: 0.923] [BMD % Change: -8.6*] RT Hip Neck: [BMD (g/cm2):na] [T-Score:na] [Z-Score:na] RT Hip Total: [BMD (g/cm2):na] [T-score:na] [Z-Score:na] [BMD Previous:na] [BMD % Change:na] *Indicates significant change from prior examination based on 95% confidence level. World Health Organization criteria for BMD interpretation classify patients as Normal (T-score at or above -1.0), Osteopenic (T-score between -1.0 and -2.5) or Osteoporotic (T-score at or below -2.5). LIMITATIONS AND MODIFICATION: Degenerative change in the lumbar spine likely falsely elevates bone density. FRACTURE RISK (FRAX SCORE): The ten year probability of (%): Major Osteoporotic Fracture: [13.7] Hip Fracture: [3.8] IMPRESSION: 1. Osteopenia (Low bone mass). 2. Bone mineral density has decreased by a statistically significant amount, as detailed above. 3. See below National Osteoporosis Foundation guidelines on when to potentially initiate pharmacologic therapy. Based on the National Osteoporosis Foundation Guidelines, pharmacologic treatment should be initiated in any of the following, unless clinical conditions suggest otherwise: * Any patient with prior fragility fracture of the hip or vertebrae. A spine fracture indicates 5X risk for subsequent spine fracture and 2X risk for subsequent hip fracture. * Osteoporosis (T-score <-2.5). * Postmenopausal women and men age 50 and older with low bone mass/osteopenia (T-score between -1.0 and -2.5) by DXA and 10-year major osteoporotic fracture greater than 20% or a 10-year probability of hip fracture greater than 3%. These fracture risks are supplied above in the FRAX score, if applicable. * Clinician judgement and/or patient preferences may indicate treatment for people with 10-year fracture probabilities above or below these levels. Dictated by: Dictated on workstation # [id number]
== END ==
LOC: RAD 08:06
PROVIDERS: ATTEND Internal Medicine
DX: M85.80 Other specified disorders of bone density and structure, unspecified site (principal); Z78.0 Asymptomatic menopausal state; Z96.641 Presence of right artificial hip joint
CPT/HCPCS: 77080